=== PATIENT | male | born 1955 | race Caucasian/White ===

== ENCOUNTER 2018-01-06 18:23 | Inpatient (IN) | payer OTHER ==
[2018-01-06 18:58] LABS: ADD MAN DIFF? NO
[2018-01-06 19:00] LABS: BASOPHILS % 0.1 % (0.0-2.0); EOSINOPHILS % 0.1 % (0.0-7.0); LYMPHOCYTES # 1.6 10^3/ul (0.8-2.9); LYMPHOCYTES % 9.3 % (15.0-51.0); MEAN CORPUSCULAR HEMOGLOBIN 30.7 pg (29.0-33.0); MEAN CORPUSCULAR HGB CONC 34.7 g/dl (32.0-37.0); MEAN CORPUSCULAR VOLUME 88.6 fl (82.0-101.0); MEAN PLATELET VOLUME 9.7 fl (7.4-10.4); MONOCYTE # 1.2 10^3/ul (0.3-0.9); MONOCYTES % 6.6 % (0.0-11.0); NEUTROPHIL # 14.5 10^3/ul (1.6-7.5); NEUTROPHILS % 83.2 % (39.0-77.0); PLATELET COUNT 311 10^3/UL (140-415); RED BLOOD COUNT 5.53 10^6/ul (4.70-6.10); RED CELL DISTRIBUTION WIDTH 12.9 % (11.5-14.5)
[2018-01-06 19:00] LABS: WHITE BLOOD COUNT 17.4 10^3/ul (4.8-10.8)
[2018-01-06] MEDS: SOD CHLORIDE 0.9% 1,000 ML IV ×3 (19:13→22:43)
[2018-01-06] MEDS: morphine 4 MG/ML VIAL IV (19:13)
[2018-01-06] MEDS: ONDANSETRON 4 MG INJ IV (19:13)
[2018-01-06 19:20] LABS: ALANINE AMINOTRANSFERASE 637 IU/L (13-69); ALBUMIN 4.9 g/dl (3.3-4.9); ALBUMIN/GLOBULIN RATIO 1.48; ALKALINE PHOSPHATASE 287 IU/L (42-121); ANION GAP 16 (8-16); ASPARTATE AMINO TRANSFERASE 603 IU/L (15-46); BILIRUBIN,INDIRECT 0.9 mg/dl (0-1.1); BILIRUBIN,TOTAL 1.5 mg/dl (0.2-1.3); BLOOD UREA NITROGEN 17 mg/dl (7-20); CALCIUM 9.8 mg/dl (8.4-10.2); CARBON DIOXIDE 28 mmol/L (21-31); CHLORIDE 100 mmol/L (97-110); CREATININE 1.17 mg/dl (0.61-1.24); GLUCOSE 191 mg/dl (70-220); POTASSIUM 3.7 mmol/L (3.5-5.1); SODIUM 140 mmol/L (135-144); TOTAL PROTEIN 8.2 g/dl (6.1-8.1)
[2018-01-06 19:44] LABS: TROPONIN-I < 0.012 ng/ml (0.000-0.120)
[2018-01-06 20:27] LABS: LIPASE 80060 U/L (23-300)
[2018-01-06] MEDS: LACTATED RINGER'S 1,000 ML IV (20:52)
[2018-01-06] MEDS ORDERED: ONDANSETRON 4 MG TAB PO (22:30)
[2018-01-06] MEDS ORDERED: DOCUSATE SODIUM 100 MG CAP PO (22:30)
[2018-01-06] MEDS ORDERED: BISACODYL (EC) 5 MG TAB PO (22:30)
[2018-01-06] MEDS ORDERED: NACL 0.9% 3 ML SYG IV (22:30)
[2018-01-06 23:27] LABS: ETHANOL < 10.0 mg/dl
[2018-01-07] MEDS: HYDROmorphONE 0.5 MG/0.5 ML SYG IV ×4 (00:03→12:27)
[2018-01-07 01:34] LABS: LACTIC ACID 2.8 mmol/L (0.5-2.0)
[2018-01-07 03:13] LABS: ADD MAN DIFF? NO
[2018-01-07 03:15] LABS: WHITE BLOOD COUNT 12.5 10^3/ul (4.8-10.8)
[2018-01-07 03:15] LABS: ABNORMAL IP MESSAGE 1; BASOPHILS % 0.2 % (0.0-2.0); HEMATOCRIT 47.7 % (42.0-52.0); HEMOGLOBIN 16.2 g/dl (14.0-18.0); LYMPHOCYTES # 0.6 10^3/ul (0.8-2.9); LYMPHOCYTES % 4.6 % (15.0-51.0); MEAN CORPUSCULAR HEMOGLOBIN 30.6 pg (29.0-33.0); MEAN CORPUSCULAR VOLUME 90.2 fl (82.0-101.0); MEAN PLATELET VOLUME 9.9 fl (7.4-10.4); MONOCYTE # 0.7 10^3/ul (0.3-0.9); MONOCYTES % 5.8 % (0.0-11.0); NEUTROPHIL # 11.1 10^3/ul (1.6-7.5); NEUTROPHILS % 88.9 % (39.0-77.0); PLATELET COUNT 274 10^3/UL (140-415); POSITIVE DIFF @See below; RED BLOOD COUNT 5.29 10^6/ul (4.70-6.10); RED CELL DISTRIBUTION WIDTH 12.9 % (11.5-14.5)
[2018-01-07 03:38] LABS: ALANINE AMINOTRANSFERASE 746 IU/L (13-69); ALBUMIN 4.4 g/dl (3.3-4.9); ALBUMIN/GLOBULIN RATIO 1.51; ALKALINE PHOSPHATASE 247 IU/L (42-121); ANION GAP 15 (8-16); ASPARTATE AMINO TRANSFERASE 672 IU/L (15-46); BILIRUBIN,TOTAL 1.7 mg/dl (0.2-1.3); BLOOD UREA NITROGEN 22 mg/dl (7-20); CALCIUM 8.9 mg/dl (8.4-10.2); CARBON DIOXIDE 25 mmol/L (21-31); CHLORIDE 104 mmol/L (97-110); CHOLESTEROL 103 mg/dl (100-200); CREATININE 0.91 mg/dl (0.61-1.24); GLUCOSE 201 mg/dl (70-220); HDL CHOLESTEROL 51 mg/dl (30-78); LDL CHOLESTEROL,CALCULATED 43 mg/dl; POTASSIUM 4.4 mmol/L (3.5-5.1); SODIUM 140 mmol/L (135-144); TOTAL PROTEIN 7.3 g/dl (6.1-8.1); TRIGLYCERIDES 43 mg/dl (0-149)
[2018-01-07 03:44] LABS: LACTIC ACID 2.5 mmol/L (0.5-2.0)
[2018-01-07] MEDS: PIPER-TAZO 3.375 GM IV (PMX) 100 ML IVPB ×4 (03:53→18:11)
[2018-01-07] MEDS: SOD CHLORIDE 0.9% 1,000 ML IV ×5 (04:11→23:16)
[2018-01-07] MEDS: LEVOTHYROXINE 75 MCG TAB PO (06:37)
[2018-01-07 07:30] LABS: FREE T4 (FREE THYROXINE) 0.52 ng/dl (0.78-2.44)
[2018-01-07 07:35] LABS: ADD UMIC YES; UR ASCORBIC ACID 40 mg/dL (NEGATIVE); UR BILIRUBIN (Dip) NEGATIVE (NEGATIVE); UR BLOOD (Dip) NEGATIVE (NEGATIVE); UR CLARITY CLEAR (CLEAR); UR COLOR AMBER (YELLOW); UR GLUCOSE (Dip) 1+ mg/dL (NEGATIVE); UR KETONES (Dip) TRACE mg/dL (NEGATIVE); UR LEUKOCYTE ESTERASE (Dip) NEGATIVE Leu/ul (NEGATIVE); UR MUCUS FEW /HPF (NONE SEEN); UR NITRITE (Dip) NEGATIVE (NEGATIVE); UR RBC 5 /HPF (0-5); UR SPECIFIC GRAVITY (Dip) 1.023 (1.003-1.030); UR TOTAL PROTEIN (Dip) 1+ mg/dl (NEGATIVE); UR UROBILINOGEN (Dip) 1+ mg/dL (NEGATIVE); UR WBC 1 /HPF (0-5)
[2018-01-07] MEDS: ASPIRIN (EC) 81 MG TAB PO (08:14)
[2018-01-07] MEDS: AMLODIPINE 10 MG TAB PO (08:15)
[2018-01-07] MEDS: FAMOTIDINE 20 MG TAB PO (08:15)
[2018-01-07 08:31] LABS: LIPASE 13921 U/L (23-300)
[2018-01-07 10:53] LABS: HEPATITIS B SURFACE ANTIGEN NEGATIVE (NEGATIVE)
[2018-01-07 11:10] LABS: HEPATITIS C VIRAL ANTIBODY NEGATIVE (NEGATIVE)
[2018-01-07] MEDS: THIAMINE 100 MG TAB PO (12:30)
[2018-01-07] MEDS: HYDROmorphONE 1 MG/ML SYG IV ×2 (16:53→20:58)
[2018-01-07] MEDS: ATORVASTATIN 80 MG TAB PO (20:54)
[2018-01-08] MEDS: PIPER-TAZO 3.375 GM IV (PMX) 100 ML IVPB ×4 (00:16→18:27)
[2018-01-08] MEDS: HYDROmorphONE 1 MG/ML SYG IV ×7 (00:22→20:24)
[2018-01-08] MEDS: SOD CHLORIDE 0.9% 1,000 ML IV ×5 (02:14→20:01)
[2018-01-08] MEDS: LEVOTHYROXINE 75 MCG TAB PO (06:12)
[2018-01-08 06:50] LABS: HEMATOCRIT 48.9 % (42.0-52.0); HEMOGLOBIN 16.4 g/dl (14.0-18.0); MEAN CORPUSCULAR HEMOGLOBIN 30.4 pg (29.0-33.0); MEAN CORPUSCULAR HGB CONC 33.5 g/dl (32.0-37.0); MEAN CORPUSCULAR VOLUME 90.7 fl (82.0-101.0); MEAN PLATELET VOLUME 10.2 fl (7.4-10.4); PLATELET COUNT 270 10^3/UL (140-415); POSITIVE DIFF @See below; RED BLOOD COUNT 5.39 10^6/ul (4.70-6.10); RED CELL DISTRIBUTION WIDTH 13.9 % (11.5-14.5)
[2018-01-08 06:55] LABS: ADD MAN DIFF? YES
[2018-01-08 07:20] LABS: MAGNESIUM 1.7 mg/dl (1.7-2.5)
[2018-01-08 07:22] LABS: ALANINE AMINOTRANSFERASE 433 IU/L (13-69); ALBUMIN 3.4 g/dl (3.3-4.9); ALBUMIN/GLOBULIN RATIO 1.25; ALKALINE PHOSPHATASE 227 IU/L (42-121); AMYLASE 879 U/L (11-123); ANION GAP 12 (8-16); ASPARTATE AMINO TRANSFERASE 222 IU/L (15-46); BILIRUBIN,INDIRECT 1.6 mg/dl (0-1.1); BILIRUBIN,TOTAL 2.6 mg/dl (0.2-1.3); BLOOD UREA NITROGEN 34 mg/dl (7-20); CALCIUM 6.7 mg/dl (8.4-10.2); CARBON DIOXIDE 20 mmol/L (21-31); CHLORIDE 113 mmol/L (97-110); GLUCOSE 137 mg/dl (70-220); POTASSIUM 4.1 mmol/L (3.5-5.1); SODIUM 141 mmol/L (135-144); TOTAL PROTEIN 6.1 g/dl (6.1-8.1)
[2018-01-08] MEDS: AMLODIPINE 10 MG TAB PO (08:24)
[2018-01-08] MEDS: THIAMINE 100 MG TAB PO (08:24)
[2018-01-08] MEDS: FAMOTIDINE 20 MG TAB PO (08:24)
[2018-01-08] MEDS: ASPIRIN (EC) 81 MG TAB PO (08:24)
[2018-01-08 08:45] LABS: CHOL/HDL RATIO 2.2 RATIO; HDL CHOLESTEROL 37 mg/dl (30-78); LDL CHOLESTEROL,CALCULATED 34 mg/dl; TRIGLYCERIDES 57 mg/dl (0-149)
[2018-01-08 08:45] LABS: CHOLESTEROL 82 mg/dl (100-200)
[2018-01-08 09:02] LABS: LIPASE 4856 U/L (23-300)
[2018-01-08 09:31] LABS: ANISOCYTOSIS 1+ (0-0); BAND NEUTROPHILS #M 3.4 10^3/ul (0.0-0.6); BAND NEUTROPHILS % (M) 20 % (0-4); BURR CELLS 2+ (0-0); GIANT THROMBO% (M) 1 % (0-0); LYMPHOCYTES #M 0.1 10^3/ul (0.8-2.9); LYMPHOCYTES % (M) 1 % (15-51); MONOCYTE #M 0.6 10^3/ul (0.3-0.9); MONOCYTES % (M) 4 % (0-11); OVALOCYTES 1+ (0-0); PLATELET ESTIMATE NORMAL; PLATELET MORPHOLOGY COMMENT @See below; POIKILOCYTOSIS 2+ (0-0); POLYCHROMASIA 1+ (0-0); SEG NEUT #M 13.3 10^3/ul (1.6-7.5); SEGMENTED NEUTROPHILS (M) % 75 % (39-77); SMUDGE%M 4 % (0-0)
[2018-01-08] MEDS: ATORVASTATIN 80 MG TAB PO (20:00)
[2018-01-09] MEDS: SOD CHLORIDE 0.9% 1,000 ML IV ×5 (00:16→19:59)
[2018-01-09] MEDS: PIPER-TAZO 3.375 GM IV (PMX) 100 ML IVPB (00:22)
[2018-01-09 01:38] LABS: AADO2 Arterial 620.2 mmHg (7.0-24.0); Arterial Base Excess -6.1 mmol/L (-3.0-3); Arterial Blood Gas Oxygen Sat 94.4 mmHG (95.0-98.0); Arterial COHb 0.7 % (0.0-3.0); Arterial Fraction of Oxyhgb 93.5 % (93.0-99.0); Arterial HCO3 15.7 mmol/L (22.0-26.0); Arterial MetHb 0.3 % (0.0-1.5); Arterial Total Hemglobin 16.2 g/dl (12.0-18.0); Arterial pCO2 23.7 mmhg (35-45); MODE MASK - NRB; Site Right Brachial
[2018-01-09] MEDS: HYDROmorphONE 1 MG/ML SYG IV ×3 (02:15→22:04)
[2018-01-09] MEDS: FUROSEMIDE 20 MG INJ IV (03:46)
[2018-01-09] MEDS: IOHEXOL 300MG/ML 150 ML BTL (04:06)
[2018-01-09] MEDS: SOD CHLORIDE 0.9% 100 ML (04:06)
[2018-01-09] MEDS: IOHEXOL 350MG/ML 50 ML BTL (04:07)
[2018-01-09] MEDS: MAGNESIUM SULFATE 2 GM/50 ML 50 ML IVPB (06:55)
[2018-01-09] MEDS: MEROPENEM 1 GM/50ML(PMX) 50 ML IVPB ×3 (07:00→22:34)
[2018-01-09] MEDS: LEVOTHYROXINE 100 MCG TAB PO (07:13)
[2018-01-09 07:20] LABS: ADD MAN DIFF? NO
[2018-01-09 07:27] LABS: WHITE BLOOD COUNT 13.6 10^3/ul (4.8-10.8)
[2018-01-09 07:27] LABS: ABNORMAL IP MESSAGE 1; BASOPHILS % 0.1 % (0.0-2.0); HEMATOCRIT 43.6 % (42.0-52.0); HEMOGLOBIN 14.6 g/dl (14.0-18.0); LYMPHOCYTES # 0.8 10^3/ul (0.8-2.9); LYMPHOCYTES % 6.1 % (15.0-51.0); MEAN CORPUSCULAR HEMOGLOBIN 30.6 pg (29.0-33.0); MEAN CORPUSCULAR HGB CONC 33.5 g/dl (32.0-37.0); MEAN CORPUSCULAR VOLUME 91.4 fl (82.0-101.0); MEAN PLATELET VOLUME 10.8 fl (7.4-10.4); MONOCYTE # 1.4 10^3/ul (0.3-0.9); MONOCYTES % 10.3 % (0.0-11.0); NEUTROPHIL # 11.3 10^3/ul (1.6-7.5); NEUTROPHILS % 83.1 % (39.0-77.0); PLATELET COUNT 239 10^3/UL (140-415); POSITIVE DIFF @See below; RED BLOOD COUNT 4.77 10^6/ul (4.70-6.10); RED CELL DISTRIBUTION WIDTH 14.2 % (11.5-14.5)
[2018-01-09 07:48] LABS: ALANINE AMINOTRANSFERASE 233 IU/L (13-69); ALBUMIN 3.2 g/dl (3.3-4.9); ALBUMIN/GLOBULIN RATIO 1.18; ALKALINE PHOSPHATASE 125 IU/L (42-121); AMYLASE 614 U/L (11-123); ANION GAP 12 (8-16); ASPARTATE AMINO TRANSFERASE 144 IU/L (15-46); BILIRUBIN,INDIRECT 1.3 mg/dl (0-1.1); BILIRUBIN,TOTAL 1.5 mg/dl (0.2-1.3); BLOOD UREA NITROGEN 53 mg/dl (7-20); CARBON DIOXIDE 20 mmol/L (21-31); CHLORIDE 114 mmol/L (97-110); CREATININE 1.57 mg/dl (0.61-1.24); GLUCOSE 150 mg/dl (70-220); POTASSIUM 3.7 mmol/L (3.5-5.1); SODIUM 142 mmol/L (135-144); TOTAL PROTEIN 5.9 g/dl (6.1-8.1)
[2018-01-09 07:53] LABS: CALCIUM 5.9 mg/dl (8.4-10.2)
[2018-01-09 08:02] LABS: LIPASE 3291 U/L (23-300)
[2018-01-09 08:54] LABS: BAND NEUTROPHILS #M 5.7 10^3/ul (0.0-0.6); BAND NEUTROPHILS % (M) 42 % (0-4); GIANT THROMBO% (M) 4 % (0-0); LYMPHOCYTES #M 0.5 10^3/ul (0.8-2.9); LYMPHOCYTES % (M) 4 % (15-51); MONOCYTE #M 1.6 10^3/ul (0.3-0.9); MONOCYTES % (M) 12 % (0-11); PLATELET ESTIMATE NORMAL; POIKILOCYTOSIS 3+ (0-0); REACTIVE LYMPHOCYTES #M 0.4 10^3/ul (0.0-0.0); REACTIVE LYMPHOCYTES% (M) 3 % (0-0); SEG NEUT #M 6.1 10^3/ul (1.6-7.5); SEGMENTED NEUTROPHILS (M) % 39 % (39-77); SMUDGE%M 3 % (0-0)
[2018-01-09] MEDS: AMLODIPINE 10 MG TAB PO (09:00)
[2018-01-09] MEDS: ASPIRIN (EC) 81 MG TAB PO (09:00)
[2018-01-09] MEDS: THIAMINE 100 MG TAB PO (09:00)
[2018-01-09] MEDS: FAMOTIDINE 20 MG TAB PO (09:00)
[2018-01-09 12:01] LABS: AADO2 Arterial 632.7 mmHg (7.0-24.0); Arterial Base Excess -6.8 mmol/L (-3.0-3); Arterial Blood Gas Oxygen Sat 92.1 mmHG (95.0-98.0); Arterial COHb 0.6 % (0.0-3.0); Arterial Fraction of Oxyhgb 91.3 % (93.0-99.0); Arterial HCO3 14.5 mmol/L (22.0-26.0); Arterial MetHb 0.3 % (0.0-1.5); Arterial Total Hemglobin 15.3 g/dl (12.0-18.0); MODE HFNC; Site Right Brachial
[2018-01-09] MEDS: CALCIUM GLUCONATE 10% 1 GM in DEXTROSE 5% 100 ML IVPB (12:14)
[2018-01-09] MEDS: ALBUTEROL/IPRATROPIUM (NEB) 3 ML AMP HHN ×2 (13:32→20:47)
[2018-01-09 13:42] LABS: MAGNESIUM 2.3 mg/dl (1.7-2.5)
[2018-01-09 13:42] LABS: PHOSPHORUS 2.7 mg/dl (2.5-4.9)
[2018-01-09 14:17] LABS: ALANINE AMINOTRANSFERASE 203 IU/L (13-69); ALBUMIN 3.1 g/dl (3.3-4.9); ALBUMIN/GLOBULIN RATIO 1.14; ALKALINE PHOSPHATASE 110 IU/L (42-121); ANION GAP 12 (8-16); ASPARTATE AMINO TRANSFERASE 134 IU/L (15-46); BILIRUBIN,INDIRECT 1.2 mg/dl (0-1.1); BILIRUBIN,TOTAL 1.3 mg/dl (0.2-1.3); BLOOD UREA NITROGEN 56 mg/dl (7-20); CARBON DIOXIDE 19 mmol/L (21-31); CHLORIDE 115 mmol/L (97-110); CREATININE 1.55 mg/dl (0.61-1.24); GLUCOSE 159 mg/dl (70-220); POTASSIUM 3.5 mmol/L (3.5-5.1); SODIUM 142 mmol/L (135-144); TOTAL PROTEIN 5.8 g/dl (6.1-8.1)
[2018-01-09 14:30] LABS: CREATINE KINASE 1054 IU/L (23-200)
[2018-01-09 14:42] LABS: CK INDEX 0.4; TROPONIN-I 0.049 ng/ml (0.000-0.120)
[2018-01-09 14:52] LABS: CK-MB 4.59 ng/ml (0.0-2.4)
[2018-01-09 15:01] LABS: IONIZED CALCIUM 0.8 mmol/L (1.1-1.4)
[2018-01-09 15:14] LABS: INR 1.19; PROTIME 15.3 Sec (11.9-14.9); PT RATIO 1.2
[2018-01-09 15:15] LABS: PARTIAL THROMBOPLASTIN TIME 34.8 Sec (25.0-35.0)
[2018-01-09] MEDS: CALCIUM GLUCONATE 10% 2 GM in DEXTROSE 5% 100 ML IVPB (16:27)
[2018-01-09] MEDS: SOD CHLORIDE 0.9% IV (21:40)
[2018-01-09] MEDS: CALCIUM GLUCONATE IV (21:40)
[2018-01-09 22:10] LABS: LACTIC ACID 2.9 mmol/L (0.5-2.0)
[2018-01-09 22:15] LABS: ANION GAP 11 (8-16); BLOOD UREA NITROGEN 58 mg/dl (7-20); CALCIUM 6.5 mg/dl (8.4-10.2); CARBON DIOXIDE 18 mmol/L (21-31); CHLORIDE 115 mmol/L (97-110); CREATININE 1.51 mg/dl (0.61-1.24); GLUCOSE 137 mg/dl (70-220); POTASSIUM 4.2 mmol/L (3.5-5.1); SODIUM 140 mmol/L (135-144)
[2018-01-09 23:37] LABS: AADO2 Arterial 621.3 mmHg (7.0-24.0); Arterial Base Excess -6.4 mmol/L (-3.0-3); Arterial Blood Gas Oxygen Sat 93.8 mmHG (95.0-98.0); Arterial COHb 0.5 % (0.0-3.0); Arterial HCO3 15.6 mmol/L (22.0-26.0); Arterial MetHb 0.3 % (0.0-1.5); Arterial Total Hemglobin 14.2 g/dl (12.0-18.0); Arterial pCO2 23.5 mmhg (35-45); MODE HFNC; Site Right Brachial
[2018-01-10] MEDS: ALBUTEROL/IPRATROPIUM (NEB) 3 ML AMP HHN ×4 (02:00→20:12)
[2018-01-10] MEDS ORDERED: PROPOFOL 0 ML (04:45)
[2018-01-10 04:47] LABS: ADD UMIC YES; UR ASCORBIC ACID NEGATIVE (NEGATIVE); UR BACTERIA FEW /HPF (NONE SEEN); UR BILIRUBIN (Dip) NEGATIVE (NEGATIVE); UR BLOOD (Dip) 3+ mg/dL (NEGATIVE); UR BUDDING YEAST FEW /HPF (NONE SEEN); UR CLARITY SLIGHTLY CLOUDY (CLEAR); UR COLOR AMBER (YELLOW); UR GLUCOSE (Dip) 1+ mg/dL (NEGATIVE); UR KETONES (Dip) NEGATIVE (NEGATIVE); UR LEUKOCYTE ESTERASE (Dip) NEGATIVE Leu/ul (NEGATIVE); UR MUCUS FEW /HPF (NONE SEEN); UR NITRITE (Dip) NEGATIVE (NEGATIVE); UR RBC 114 /HPF (0-5); UR SPECIFIC GRAVITY (Dip) 1.038 (1.003-1.030); UR TOTAL PROTEIN (Dip) 2+ mg/dl (NEGATIVE); UR UROBILINOGEN (Dip) NEGATIVE (NEGATIVE); UR WBC 8 /HPF (0-5)
[2018-01-10] MEDS: CALCIUM GLUCONATE IV ×4 (04:53→21:34)
[2018-01-10] MEDS: SOD CHLORIDE 0.9% IV (04:53)
[2018-01-10] MEDS ORDERED: PHENYLephrine 20MG IN 250 ML 250 ML IV (05:00)
[2018-01-10 05:01] LABS: CREATININE,URINE RANDOM 277.92 mg/dl (20-370)
[2018-01-10] MEDS ORDERED: LORAZEPAM 2 MG INJ (05:01)
[2018-01-10] MEDS: LORAZEPAM 2 MG INJ IV (05:07)
[2018-01-10 05:10] LABS: ADD MAN DIFF? NO
[2018-01-10 05:19] LABS: WHITE BLOOD COUNT 12.5 10^3/ul (4.8-10.8)
[2018-01-10 05:19] LABS: ABNORMAL IP MESSAGE 1; BASOPHILS % 0.3 % (0.0-2.0); HEMATOCRIT 38.9 % (42.0-52.0); HEMOGLOBIN 12.9 g/dl (14.0-18.0); LYMPHOCYTES # 0.8 10^3/ul (0.8-2.9); LYMPHOCYTES % 6.7 % (15.0-51.0); MEAN CORPUSCULAR HEMOGLOBIN 30.1 pg (29.0-33.0); MEAN CORPUSCULAR HGB CONC 33.2 g/dl (32.0-37.0); MEAN CORPUSCULAR VOLUME 90.9 fl (82.0-101.0); MEAN PLATELET VOLUME 10.9 fl (7.4-10.4); MONOCYTE # 1.4 10^3/ul (0.3-0.9); MONOCYTES % 11.4 % (0.0-11.0); NEUTROPHIL # 10.1 10^3/ul (1.6-7.5); NEUTROPHILS % 80.6 % (39.0-77.0); PLATELET COUNT 246 10^3/UL (140-415); POSITIVE DIFF @See below; RED BLOOD COUNT 4.28 10^6/ul (4.70-6.10); RED CELL DISTRIBUTION WIDTH 14.3 % (11.5-14.5)
[2018-01-10 05:27] LABS: CREATININE,URINE RANDOM 281.44 mg/dl (20-370)
[2018-01-10 05:46] LABS: SODIUM,URINE RANDOM < 13 mmol/L (30-90)
[2018-01-10 05:50] LABS: ALANINE AMINOTRANSFERASE 156 IU/L (13-69); ALBUMIN 3.2 g/dl (3.3-4.9); ALBUMIN/GLOBULIN RATIO 1.03; ALKALINE PHOSPHATASE 94 IU/L (42-121); ANION GAP 10 (8-16); ASPARTATE AMINO TRANSFERASE 138 IU/L (15-46); BILIRUBIN,INDIRECT 1.2 mg/dl (0-1.1); BILIRUBIN,TOTAL 1.2 mg/dl (0.2-1.3); BLOOD UREA NITROGEN 65 mg/dl (7-20); CALCIUM 6.6 mg/dl (8.4-10.2); CARBON DIOXIDE 18 mmol/L (21-31); CHLORIDE 118 mmol/L (97-110); CREATININE 1.97 mg/dl (0.61-1.24); GLUCOSE 140 mg/dl (70-220); POTASSIUM 3.4 mmol/L (3.5-5.1); SODIUM 143 mmol/L (135-144); TOTAL PROTEIN 6.3 g/dl (6.1-8.1)
[2018-01-10 05:51] LABS: PHOSPHORUS 3.4 mg/dl (2.5-4.9)
[2018-01-10 05:51] LABS: MAGNESIUM 2.3 mg/dl (1.7-2.5)
[2018-01-10 05:52] LABS: LACTIC ACID 2.5 mmol/L (0.5-2.0)
[2018-01-10] MEDS: MEROPENEM 1 GM/50ML(PMX) 50 ML IVPB ×3 (06:12→23:31)
[2018-01-10] MEDS: LEVOTHYROXINE 100 MCG VIAL IV (06:16)
[2018-01-10 06:24] LABS: LIPASE 1532 U/L (23-300)
[2018-01-10 06:24] LABS: AMYLASE 428 U/L (11-123)
[2018-01-10 08:31] LABS: AADO2 Arterial 609.5 mmHg (7.0-24.0); Arterial Blood Gas Oxygen Sat 95.7 mmHG (95.0-98.0); Arterial COHb 0.4 % (0.0-3.0); Arterial HCO3 14.7 mmol/L (22.0-26.0); Arterial MetHb 0.3 % (0.0-1.5); Arterial Total Hemglobin 14.1 g/dl (12.0-18.0); Arterial pCO2 21.7 mmhg (35-45); Blood Gas IEPAP 15/5; MODE MASK - BIPAP; Site Right Brachial
[2018-01-10] MEDS: CALCIUM GLUCONATE 10% 2 GM in DEXTROSE 5% 100 ML IVPB (09:38)
[2018-01-10 09:44] LABS: LACTIC ACID 1.9 mmol/L (0.5-2.0)
[2018-01-10 10:01] LABS: CREATINE KINASE 1142 IU/L (23-200)
[2018-01-10 10:12] LABS: CK INDEX 0.3; CK-MB 3.05 ng/ml (0.0-2.4); TROPONIN-I 0.114 ng/ml (0.000-0.120)
[2018-01-10] MEDS: NACL IV ×3 (11:09→21:34)
[2018-01-10] MEDS: DEXTROSE IV ×3 (11:09→21:34)
[2018-01-10] MEDS: POTASSIUM CHLORIDE IV ×3 (11:09→21:34)
[2018-01-10] MEDS: LIDOCAINE 1% (MPF) 5 ML VIAL SC (12:00)
[2018-01-10] MEDS: HEPARIN 5,000 UNIT/0.5 ML VIAL SC ×2 (13:46→22:32)
[2018-01-10 14:19] LABS: ANION GAP 11 (8-16); BLOOD UREA NITROGEN 77 mg/dl (7-20); CALCIUM 7.1 mg/dl (8.4-10.2); CARBON DIOXIDE 18 mmol/L (21-31); CHLORIDE 117 mmol/L (97-110); CREATININE 2.81 mg/dl (0.61-1.24); GLUCOSE 188 mg/dl (70-220); POTASSIUM 3.1 mmol/L (3.5-5.1); SODIUM 143 mmol/L (135-144)
[2018-01-10] MEDS ORDERED: POTASSIUM CHLORIDE 50 ML IVPB (15:00)
[2018-01-10] MEDS: KCL 30 MEQ in NS 250 ML IVPB X1 IVPB (16:00)
[2018-01-10 20:27] LABS: POTASSIUM 3.5 mmol/L (3.5-5.1)
[2018-01-10] MEDS: POTASSIUM CHLORIDE 100 ML IVPB (21:34)
[2018-01-11] MEDS: ALBUTEROL/IPRATROPIUM (NEB) 3 ML AMP HHN ×4 (02:08→20:00)
[2018-01-11] MEDS: DEXTROSE IV ×5 (03:30→23:49)
[2018-01-11] MEDS: CALCIUM GLUCONATE IV ×2 (03:30→06:00)
[2018-01-11] MEDS: POTASSIUM CHLORIDE IV ×5 (03:30→23:49)
[2018-01-11] MEDS: NACL IV ×5 (03:30→23:49)
[2018-01-11] MEDS: HYDROmorphONE 1 MG/ML SYG IV ×2 (03:49→05:59)
[2018-01-11] MEDS: LEVOTHYROXINE 100 MCG VIAL IV (05:44)
[2018-01-11] MEDS: HEPARIN 5,000 UNIT/0.5 ML VIAL SC ×2 (05:45→14:00)
[2018-01-11 05:51] LABS: ADD MAN DIFF? NO
[2018-01-11 05:55] LABS: WHITE BLOOD COUNT 12.2 10^3/ul (4.8-10.8)
[2018-01-11 05:55] LABS: BASOPHILS % 0.2 % (0.0-2.0); EOSINOPHILS % 0.2 % (0.0-7.0); HEMATOCRIT 35.4 % (42.0-52.0); HEMOGLOBIN 11.6 g/dl (14.0-18.0); LYMPHOCYTES # 0.8 10^3/ul (0.8-2.9); LYMPHOCYTES % 6.6 % (15.0-51.0); MEAN CORPUSCULAR HEMOGLOBIN 30.1 pg (29.0-33.0); MEAN CORPUSCULAR HGB CONC 32.8 g/dl (32.0-37.0); MEAN CORPUSCULAR VOLUME 91.7 fl (82.0-101.0); MEAN PLATELET VOLUME 10.6 fl (7.4-10.4); MONOCYTE # 1.4 10^3/ul (0.3-0.9); MONOCYTES % 11.5 % (0.0-11.0); NEUTROPHIL # 9.6 10^3/ul (1.6-7.5); NEUTROPHILS % 78.7 % (39.0-77.0); PLATELET COUNT 240 10^3/UL (140-415); POSITIVE DIFF @See below; RED BLOOD COUNT 3.86 10^6/ul (4.70-6.10); RED CELL DISTRIBUTION WIDTH 14.7 % (11.5-14.5)
[2018-01-11 06:18] LABS: ALANINE AMINOTRANSFERASE 123 IU/L (13-69); ALKALINE PHOSPHATASE 75 IU/L (42-121); ANION GAP 13 (8-16); ASPARTATE AMINO TRANSFERASE 116 IU/L (15-46); BILIRUBIN,INDIRECT 0.8 mg/dl (0-1.1); BILIRUBIN,TOTAL 0.8 mg/dl (0.2-1.3); BLOOD UREA NITROGEN 88 mg/dl (7-20); CALCIUM 7.5 mg/dl (8.4-10.2); CARBON DIOXIDE 18 mmol/L (21-31); CHLORIDE 119 mmol/L (97-110); CREATININE 3.25 mg/dl (0.61-1.24); GLUCOSE 175 mg/dl (70-220); MAGNESIUM 2.8 mg/dl (1.7-2.5); PHOSPHORUS 4.2 mg/dl (2.5-4.9); POTASSIUM 3.4 mmol/L (3.5-5.1); SODIUM 147 mmol/L (135-144)
[2018-01-11] MEDS: MEROPENEM 1 GM/50ML(PMX) 50 ML IVPB ×2 (08:17→21:10)
[2018-01-11 09:30] LABS: AADO2 Arterial 597.2 mmHg (7.0-24.0); Arterial Base Excess -12.3 mmol/L (-3.0-3); Arterial Blood Gas Oxygen Sat 96.5 mmHG (95.0-98.0); Arterial COHb 0.8 % (0.0-3.0); Arterial Fraction of Oxyhgb 95.1 % (93.0-99.0); Arterial HCO3 11.5 mmol/L (22.0-26.0); Arterial MetHb 0.6 % (0.0-1.5); Arterial Total Hemglobin 11.9 g/dl (12.0-18.0); MODE HFNC; Site Right Brachial
[2018-01-11] MEDS: LIDOCAINE 1% (MPF) 5 ML VIAL SC (14:20)
[2018-01-11 14:42] LABS: LIPASE 1271 U/L (23-300)
[2018-01-11 14:42] LABS: AMYLASE 287 U/L (11-123)
[2018-01-11 18:41] LABS: WHITE BLOOD COUNT 15.6 10^3/ul (4.8-10.8)
[2018-01-11 18:42] LABS: ABNORMAL IP MESSAGE 1; HEMATOCRIT 31.8 % (42.0-52.0); HEMOGLOBIN 10.7 g/dl (14.0-18.0); MEAN CORPUSCULAR HEMOGLOBIN 30.5 pg (29.0-33.0); MEAN CORPUSCULAR HGB CONC 33.6 g/dl (32.0-37.0); MEAN CORPUSCULAR VOLUME 90.6 fl (82.0-101.0); MEAN PLATELET VOLUME 10.6 fl (7.4-10.4); PLATELET COUNT 250 10^3/UL (140-415); POSITIVE DIFF @See below; RED BLOOD COUNT 3.51 10^6/ul (4.70-6.10); RED CELL DISTRIBUTION WIDTH 14.7 % (11.5-14.5)
[2018-01-11 19:03] LABS: ADD MAN DIFF? YES
[2018-01-11 19:21] LABS: ACANTHOCYTES 1+ (0-0); ANISOCYTOSIS 1+ (0-0); BAND NEUTROPHILS #M 1.5 10^3/ul (0.0-0.6); BAND NEUTROPHILS % (M) 10 % (0-4); ECHINOCYTOSIS 2+ (0-0); GIANT THROMBO% (M) 4 % (0-0); LYMPHOCYTES #M 0.7 10^3/ul (0.8-2.9); LYMPHOCYTES % (M) 5 % (15-51); METAMYELOCYTES #M 0.1 10^3/ul (0.0-0.0); METAMYELOCYTES %M 1 % (0-0); MONOCYTE #M 0.7 10^3/ul (0.3-0.9); MONOCYTES % (M) 5 % (0-11); MYELOCYTES #M 0.4 10^3/ul (0.0-0.0); MYELOCYTES % (M) 3 % (0-0); OVALOCYTES 1+ (0-0); PLATELET MORPHOLOGY COMMENT @See below; POIKILOCYTOSIS 3+ (0-0); POLYCHROMASIA 1+ (0-0); SCHISTOCYTES 1+ (0-0); SEG NEUT #M 12.1 10^3/ul (1.6-7.5); SEGMENTED NEUTROPHILS (M) % 76 % (39-77); SMUDGE%M 2 % (0-0); SPHEROCYTES 1+ (0-0)
[2018-01-11] MEDS: PANTOPRAZOLE IV 80 MG in SOD CHLORIDE 0.9% 100 ML IV (21:10)
[2018-01-11] MEDS: ONDANSETRON INJ 8 MG in DEXTROSE 5% 50 ML IV (21:58)
[2018-01-12] MEDS: LORAZEPAM 2 MG INJ IV ×2 (00:44→09:49)
[2018-01-12] MEDS: ALBUTEROL/IPRATROPIUM (NEB) 3 ML AMP HHN ×4 (01:19→19:04)
[2018-01-12] MEDS: ONDANSETRON INJ 8 MG in DEXTROSE 5% 50 ML IV ×5 (02:15→23:35)
[2018-01-12] MEDS: POTASSIUM CHLORIDE IV ×3 (02:19→09:47)
[2018-01-12] MEDS: NACL IV ×3 (02:19→09:47)
[2018-01-12] MEDS: DEXTROSE IV ×3 (02:19→09:47)
[2018-01-12] MEDS: PANTOPRAZOLE IV 80 MG in SOD CHLORIDE 0.9% 100 ML IV ×3 (03:28→17:20)
[2018-01-12] MEDS: LEVOTHYROXINE 100 MCG VIAL IV (05:23)
[2018-01-12 05:45] LABS: ADD MAN DIFF? NO
[2018-01-12 05:48] LABS: ABNORMAL IP MESSAGE 1; BASOPHIL # 0.1 10^3/ul (0.0-0.1); BASOPHILS % 0.6 % (0.0-2.0); EOSINOPHILS # 0.1 10^3/ul (0.0-0.5); EOSINOPHILS % 0.5 % (0.0-7.0); HEMATOCRIT 31.2 % (42.0-52.0); HEMOGLOBIN 10.4 g/dl (14.0-18.0); LYMPHOCYTES # 0.6 10^3/ul (0.8-2.9); LYMPHOCYTES % 3.5 % (15.0-51.0); MEAN CORPUSCULAR HEMOGLOBIN 30.6 pg (29.0-33.0); MEAN CORPUSCULAR HGB CONC 33.3 g/dl (32.0-37.0); MEAN CORPUSCULAR VOLUME 91.8 fl (82.0-101.0); MEAN PLATELET VOLUME 10.8 fl (7.4-10.4); MONOCYTE # 1.7 10^3/ul (0.3-0.9); MONOCYTES % 9.8 % (0.0-11.0); NEUTROPHIL # 13.9 10^3/ul (1.6-7.5); NEUTROPHILS % 80.5 % (39.0-77.0); NUCLEATED RED BLOOD CELLS% 0.2 /100WBC (0.0-0.0); PLATELET COUNT 225 10^3/UL (140-415); POSITIVE DIFF @See below; RED CELL DISTRIBUTION WIDTH 14.9 % (11.5-14.5)
[2018-01-12 05:48] LABS: WHITE BLOOD COUNT 17.3 10^3/ul (4.8-10.8)
[2018-01-12 06:21] LABS: ALANINE AMINOTRANSFERASE 124 IU/L (13-69); ALBUMIN 2.8 g/dl (3.3-4.9); ALKALINE PHOSPHATASE 80 IU/L (42-121); ANION GAP 14 (8-16); ASPARTATE AMINO TRANSFERASE 146 IU/L (15-46); BILIRUBIN,INDIRECT 0.5 mg/dl (0-1.1); BILIRUBIN,TOTAL 0.5 mg/dl (0.2-1.3); BLOOD UREA NITROGEN 103 mg/dl (7-20); CALCIUM 7.6 mg/dl (8.4-10.2); CARBON DIOXIDE 14 mmol/L (21-31); CHLORIDE 120 mmol/L (97-110); GLUCOSE 157 mg/dl (70-220); MAGNESIUM 2.8 mg/dl (1.7-2.5); POTASSIUM 3.8 mmol/L (3.5-5.1); SODIUM 144 mmol/L (135-144); TOTAL PROTEIN 5.9 g/dl (6.1-8.1)
[2018-01-12 08:52] LABS: AADO2 Arterial 480.6 mmHg (7.0-24.0); Allen Test ACCEPTAB; Arterial Base Excess -12.5 mmol/L (-3.0-3); Arterial Blood Gas Oxygen Sat 91.4 mmHG (95.0-98.0); Arterial COHb 0.4 % (0.0-3.0); Arterial Fraction of Oxyhgb 90.5 % (93.0-99.0); Arterial HCO3 11.9 mmol/L (22.0-26.0); Arterial MetHb 0.6 % (0.0-1.5); Arterial Total Hemglobin 10.2 g/dl (12.0-18.0); Arterial pCO2 23.4 mmhg (35-45); MODE HFNC; Site Right Radial
[2018-01-12] MEDS: MEROPENEM 1 GM/50ML(PMX) 50 ML IVPB (09:00)
[2018-01-12 09:09] LABS: ANISOCYTOSIS 1+ (0-0); BAND NEUTROPHILS % (M) 41 % (0-4); BURR CELLS 2+ (0-0); LYMPHOCYTES #M 0.3 10^3/ul (0.8-2.9); LYMPHOCYTES % (M) 2 % (15-51); METAMYELOCYTES #M 0.1 10^3/ul (0.0-0.0); METAMYELOCYTES %M 1 % (0-0); MONOCYTE #M 1.7 10^3/ul (0.3-0.9); MONOCYTES % (M) 10 % (0-11); PLATELET ESTIMATE NORMAL; POIKILOCYTOSIS 2+ (0-0); POLYCHROMASIA 1+ (0-0); SEG NEUT #M 9.2 10^3/ul (1.6-7.5); SEGMENTED NEUTROPHILS (M) % 46 % (39-77); SMUDGE%M 1 % (0-0)
[2018-01-12] MEDS: MULTIVITAMINS IV (09:47)
[2018-01-12] MEDS ORDERED: DEXTROSE IV (10:00)
[2018-01-12] MEDS ORDERED: NACL IV (10:00)
[2018-01-12] MEDS ORDERED: POTASSIUM CHLORIDE IV (10:00)
[2018-01-12 12:18] LABS: LIPASE 815 U/L (23-300)
[2018-01-12 16:05] LABS: INR 1.31; PROTIME 16.5 Sec (11.9-14.9); PT RATIO 1.3
[2018-01-12] MEDS: D5-0.2 NACL + KCL 20 MEQ 1,000 ML IV ×2 (17:21→23:31)
[2018-01-12] MEDS: MEROPENEM 500MG/50 ML (PMX) 50 ML IVPB (20:42)
[2018-01-13] MEDS: ALBUTEROL/IPRATROPIUM (NEB) 3 ML AMP HHN ×4 (01:29→19:40)
[2018-01-13] MEDS: PANTOPRAZOLE IV 80 MG in SOD CHLORIDE 0.9% 100 ML IV ×2 (02:41→14:12)
[2018-01-13] MEDS: LORAZEPAM 2 MG INJ IV (02:56)
[2018-01-13 05:03] LABS: ADD MAN DIFF? NO
[2018-01-13] MEDS: D5-0.2 NACL + KCL 20 MEQ 1,000 ML IV ×2 (05:06→11:28)
[2018-01-13 05:09] LABS: ABNORMAL IP MESSAGE 1; BASOPHIL # 0.1 10^3/ul (0.0-0.1); BASOPHILS % 0.4 % (0.0-2.0); EOSINOPHILS # 0.2 10^3/ul (0.0-0.5); EOSINOPHILS % 0.8 % (0.0-7.0); HEMATOCRIT 29.1 % (42.0-52.0); HEMOGLOBIN 9.6 g/dl (14.0-18.0); LYMPHOCYTES # 0.5 10^3/ul (0.8-2.9); LYMPHOCYTES % 2.3 % (15.0-51.0); MEAN CORPUSCULAR HEMOGLOBIN 30.6 pg (29.0-33.0); MEAN CORPUSCULAR VOLUME 92.7 fl (82.0-101.0); MONOCYTE # 1.4 10^3/ul (0.3-0.9); MONOCYTES % 7.1 % (0.0-11.0); NEUTROPHIL # 16.2 10^3/ul (1.6-7.5); NEUTROPHILS % 84.1 % (39.0-77.0); NUCLEATED RED BLOOD CELLS% 0.2 /100WBC (0.0-0.0); PLATELET COUNT 216 10^3/UL (140-415); POSITIVE DIFF @See below; RED BLOOD COUNT 3.14 10^6/ul (4.70-6.10); RED CELL DISTRIBUTION WIDTH 15.1 % (11.5-14.5)
[2018-01-13 05:09] LABS: WHITE BLOOD COUNT 19.3 10^3/ul (4.8-10.8)
[2018-01-13] MEDS: LEVOTHYROXINE 100 MCG VIAL IV (05:33)
[2018-01-13] MEDS: ONDANSETRON INJ 8 MG in DEXTROSE 5% 50 ML IV ×3 (05:34→17:14)
[2018-01-13 05:41] LABS: LIPASE 1415 U/L (23-300)
[2018-01-13 05:44] LABS: ALANINE AMINOTRANSFERASE 113 IU/L (13-69); ALBUMIN 2.6 g/dl (3.3-4.9); ALBUMIN/GLOBULIN RATIO 0.89; ALKALINE PHOSPHATASE 82 IU/L (42-121); ANION GAP 16 (8-16); ASPARTATE AMINO TRANSFERASE 132 IU/L (15-46); BILIRUBIN,INDIRECT 0.5 mg/dl (0-1.1); BILIRUBIN,TOTAL 0.8 mg/dl (0.2-1.3); BLOOD UREA NITROGEN 108 mg/dl (7-20); CALCIUM 7.7 mg/dl (8.4-10.2); CARBON DIOXIDE 14 mmol/L (21-31); CHLORIDE 116 mmol/L (97-110); GLUCOSE 161 mg/dl (70-220); MAGNESIUM 2.8 mg/dl (1.7-2.5); PHOSPHORUS 5.7 mg/dl (2.5-4.9); POTASSIUM 3.9 mmol/L (3.5-5.1); SODIUM 142 mmol/L (135-144); TOTAL PROTEIN 5.5 g/dl (6.1-8.1)
[2018-01-13 07:43] LABS: ANISOCYTOSIS 1+ (0-0); BAND NEUTROPHILS #M 2.8 10^3/ul (0.0-0.6); BAND NEUTROPHILS % (M) 15 % (0-4); BURR CELLS 3+ (0-0); EOSINOPHILS % (M) 1 % (0-7); ERYTHROBLAST% (NRBC) (M) 1 % (0-0); GIANT THROMBO% (M) 1 % (0-0); LYMPHOCYTES #M 0.9 10^3/ul (0.8-2.9); LYMPHOCYTES % (M) 5 % (15-51); MONOCYTE #M 2.1 10^3/ul (0.3-0.9); MONOCYTES % (M) 11 % (0-11); MYELOCYTES #M 0.1 10^3/ul (0.0-0.0); MYELOCYTES % (M) 1 % (0-0); PLATELET ESTIMATE NORMAL; POIKILOCYTOSIS 3+ (0-0); POLYCHROMASIA 1+ (0-0); SEG NEUT #M 13.5 10^3/ul (1.6-7.5); SEGMENTED NEUTROPHILS (M) % 67 % (39-77); SMUDGE%M 7 % (0-0)
[2018-01-13] MEDS: MEROPENEM 500MG/50 ML (PMX) 50 ML IVPB ×2 (08:22→20:50)
[2018-01-13 08:36] LABS: AADO2 Arterial 485.4 mmHg (7.0-24.0); Allen Test ACCEPTAB; Arterial Base Excess -13.6 mmol/L (-3.0-3); Arterial Blood Gas Oxygen Sat 90.2 mmHG (95.0-98.0); Arterial COHb 0.4 % (0.0-3.0); Arterial Fraction of Oxyhgb 89.4 % (93.0-99.0); Arterial HCO3 10.8 mmol/L (22.0-26.0); Arterial MetHb 0.5 % (0.0-1.5); Arterial Total Hemglobin 11.1 g/dl (12.0-18.0); Arterial pCO2 21.9 mmhg (35-45); MODE HFNC; Site LB
[2018-01-13] MEDS: ACCU-CHEK XX ×4 (09:37→20:57)
[2018-01-13] MEDS: DEXTROSE 5%-0.225% NACL 1,000 ML IV (15:27)
[2018-01-13] MEDS: TPN 1,000 ML IV (16:21)
[2018-01-13] MEDS ORDERED: IOHEXOL 14.3 MG(I)/ML (ADULT) BTL PO (18:00)
[2018-01-13] MEDS ORDERED: GLUCOSE GEL 15 GRAM TUBE PO ×2 (21:30)
[2018-01-13] MEDS ORDERED: DEXTROSE 50% 50 ML SYRINGE IV (21:30)
[2018-01-13] MEDS ORDERED: GLUCAGON 1 MG INJ IM (21:30)
[2018-01-13] MEDS: SOD CHLORIDE 0.45% 1,000 ML IV (21:54)
[2018-01-13] MEDS: HYDROmorphONE 1 MG/ML SYG IV (23:18)
[2018-01-13] MEDS: INSULIN ASPART [NOVOLOG] 3 ML PEN SC (23:32)
[2018-01-14] MEDS: ONDANSETRON INJ 8 MG in DEXTROSE 5% 50 ML IV ×4 (00:19→17:06)
[2018-01-14] MEDS: PANTOPRAZOLE IV 80 MG in SOD CHLORIDE 0.9% 100 ML IV ×3 (00:20→15:30)
[2018-01-14] MEDS: ACCU-CHEK XX ×5 (00:26→17:00)
[2018-01-14] MEDS: ALBUTEROL/IPRATROPIUM (NEB) 3 ML AMP HHN ×4 (03:43→20:08)
[2018-01-14 05:38] LABS: ADD MAN DIFF? NO
[2018-01-14 06:02] LABS: ALANINE AMINOTRANSFERASE 112 IU/L (13-69); ALBUMIN 2.5 g/dl (3.3-4.9); ALBUMIN/GLOBULIN RATIO 0.86; ALKALINE PHOSPHATASE 93 IU/L (42-121); ANION GAP 13 (8-16); ASPARTATE AMINO TRANSFERASE 172 IU/L (15-46); BILIRUBIN,INDIRECT 0.6 mg/dl (0-1.1); BILIRUBIN,TOTAL 1.2 mg/dl (0.2-1.3); BLOOD UREA NITROGEN 110 mg/dl (7-20); CALCIUM 7.8 mg/dl (8.4-10.2); CARBON DIOXIDE 16 mmol/L (21-31); CHLORIDE 118 mmol/L (97-110); CREATININE 3.44 mg/dl (0.61-1.24); GLUCOSE 178 mg/dl (70-220); MAGNESIUM 2.8 mg/dl (1.7-2.5); PHOSPHORUS 5.7 mg/dl (2.5-4.9); POTASSIUM 3.9 mmol/L (3.5-5.1); SODIUM 143 mmol/L (135-144); TOTAL PROTEIN 5.4 g/dl (6.1-8.1); TRIGLYCERIDES 134 mg/dl (0-149)
[2018-01-14 06:08] LABS: PREALBUMIN 7.6 mg/dl (17.6-36.0)
[2018-01-14 06:10] LABS: ABNORMAL IP MESSAGE 1; BASOPHIL # 0.1 10^3/ul (0.0-0.1); BASOPHILS % 0.4 % (0.0-2.0); EOSINOPHILS # 0.2 10^3/ul (0.0-0.5); EOSINOPHILS % 0.9 % (0.0-7.0); HEMATOCRIT 29.2 % (42.0-52.0); HEMOGLOBIN 9.7 g/dl (14.0-18.0); LYMPHOCYTES # 0.5 10^3/ul (0.8-2.9); LYMPHOCYTES % 2.4 % (15.0-51.0); MEAN CORPUSCULAR HEMOGLOBIN 30.5 pg (29.0-33.0); MEAN CORPUSCULAR HGB CONC 33.2 g/dl (32.0-37.0); MEAN CORPUSCULAR VOLUME 91.8 fl (82.0-101.0); MONOCYTE # 1.5 10^3/ul (0.3-0.9); MONOCYTES % 6.5 % (0.0-11.0); NEUTROPHIL # 18.7 10^3/ul (1.6-7.5); NEUTROPHILS % 84.1 % (39.0-77.0); PLATELET COUNT 213 10^3/UL (140-415); POSITIVE DIFF @See below; RED BLOOD COUNT 3.18 10^6/ul (4.70-6.10); RED CELL DISTRIBUTION WIDTH 15.1 % (11.5-14.5)
[2018-01-14 06:10] LABS: WHITE BLOOD COUNT 22.2 10^3/ul (4.8-10.8)
[2018-01-14] MEDS: HYDROmorphONE 1 MG/ML SYG IV ×2 (06:13→20:16)
[2018-01-14] MEDS: LEVOTHYROXINE 100 MCG VIAL IV (06:13)
[2018-01-14] MEDS: INSULIN ASPART [NOVOLOG] 3 ML PEN SC ×3 (06:17→17:10)
[2018-01-14] MEDS: MEROPENEM 500MG/50 ML (PMX) 50 ML IVPB ×2 (08:44→20:15)
[2018-01-14] MEDS: SOD CHLORIDE 0.45% 1,000 ML IV ×2 (08:48→20:16)
[2018-01-14 08:53] LABS: Allen Test ACCEPTAB; Arterial Base Excess -11.6 mmol/L (-3.0-3); Arterial Blood Gas Oxygen Sat 91.6 mmHG (95.0-98.0); Arterial COHb 0.3 % (0.0-3.0); Arterial Fraction of Oxyhgb 91.1 % (93.0-99.0); Arterial HCO3 14.2 mmol/L (22.0-26.0); Arterial MetHb 0.2 % (0.0-1.5); Arterial Total Hemglobin 10.4 g/dl (12.0-18.0); Arterial pCO2 31.4 mmhg (35-45); MODE HFNC; Site Right Brachial
[2018-01-14 10:44] LABS: LACTIC ACID 0.9 mmol/L (0.5-2.0)
[2018-01-14] MEDS: TPN 1,000 ML IV (11:52)
[2018-01-14] MEDS: NA BICARBONATE 650 MG TAB PO ×2 (12:38→20:16)
[2018-01-14] MEDS: LORAZEPAM 2 MG INJ IV (16:30)
[2018-01-15] MEDS: ONDANSETRON INJ 8 MG in DEXTROSE 5% 50 ML IV ×4 (00:16→17:15)
[2018-01-15] MEDS: PANTOPRAZOLE IV 80 MG in SOD CHLORIDE 0.9% 100 ML IV ×3 (00:16→21:21)
[2018-01-15] MEDS: INSULIN ASPART [NOVOLOG] 3 ML PEN SC ×4 (00:19→17:26)
[2018-01-15] MEDS: ALBUTEROL/IPRATROPIUM (NEB) 3 ML AMP HHN ×4 (01:34→19:48)
[2018-01-15 05:12] LABS: ADD MAN DIFF? NO
[2018-01-15 05:13] LABS: ABNORMAL IP MESSAGE 1; BASOPHIL # 0.1 10^3/ul (0.0-0.1); BASOPHILS % 0.4 % (0.0-2.0); EOSINOPHILS # 0.1 10^3/ul (0.0-0.5); EOSINOPHILS % 0.7 % (0.0-7.0); HEMATOCRIT 28.9 % (42.0-52.0); HEMOGLOBIN 9.5 g/dl (14.0-18.0); LYMPHOCYTES # 0.5 10^3/ul (0.8-2.9); LYMPHOCYTES % 2.3 % (15.0-51.0); MEAN CORPUSCULAR HEMOGLOBIN 30.4 pg (29.0-33.0); MEAN CORPUSCULAR HGB CONC 32.9 g/dl (32.0-37.0); MEAN CORPUSCULAR VOLUME 92.3 fl (82.0-101.0); MEAN PLATELET VOLUME 11.5 fl (7.4-10.4); MONOCYTE # 1.3 10^3/ul (0.3-0.9); MONOCYTES % 6.1 % (0.0-11.0); NEUTROPHIL # 17.9 10^3/ul (1.6-7.5); NEUTROPHILS % 84.9 % (39.0-77.0); PLATELET COUNT 206 10^3/UL (140-415); POSITIVE DIFF @See below; RED BLOOD COUNT 3.13 10^6/ul (4.70-6.10); RED CELL DISTRIBUTION WIDTH 15.4 % (11.5-14.5)
[2018-01-15 05:13] LABS: WHITE BLOOD COUNT 21.1 10^3/ul (4.8-10.8)
[2018-01-15 05:41] LABS: ALANINE AMINOTRANSFERASE 93 IU/L (13-69); ALBUMIN/GLOBULIN RATIO 0.83; ALKALINE PHOSPHATASE 84 IU/L (42-121); ANION GAP 13 (8-16); ASPARTATE AMINO TRANSFERASE 157 IU/L (15-46); BILIRUBIN,INDIRECT 0.6 mg/dl (0-1.1); BILIRUBIN,TOTAL 0.9 mg/dl (0.2-1.3); BLOOD UREA NITROGEN 109 mg/dl (7-20); CALCIUM 7.5 mg/dl (8.4-10.2); CARBON DIOXIDE 19 mmol/L (21-31); CHLORIDE 117 mmol/L (97-110); CREATININE 2.74 mg/dl (0.61-1.24); GLUCOSE 188 mg/dl (70-220); MAGNESIUM 2.6 mg/dl (1.7-2.5); PHOSPHORUS 5.8 mg/dl (2.5-4.9); POTASSIUM 4.2 mmol/L (3.5-5.1); SODIUM 145 mmol/L (135-144); TOTAL PROTEIN 4.4 g/dl (6.1-8.1)
[2018-01-15 06:13] LABS: LIPASE 2627 U/L (23-300)
[2018-01-15] MEDS: LEVOTHYROXINE 100 MCG VIAL IV (06:14)
[2018-01-15] MEDS: TPN 1,000 ML IV ×2 (07:00→15:04)
[2018-01-15] MEDS: MEROPENEM 500MG/50 ML (PMX) 50 ML IVPB ×2 (08:07→21:03)
[2018-01-15 08:47] LABS: ADD UMIC YES; UR AMORPHOUS CRYSTAL FEW /HPF (NONE SEEN); UR ASCORBIC ACID NEGATIVE (NEGATIVE); UR BACTERIA FEW /HPF (NONE SEEN); UR BILIRUBIN (Dip) NEGATIVE (NEGATIVE); UR BLOOD (Dip) 2+ mg/dL (NEGATIVE); UR CLARITY CLOUDY (CLEAR); UR COLOR YELLOW (YELLOW); UR GLUCOSE (Dip) NEGATIVE (NEGATIVE); UR KETONES (Dip) NEGATIVE (NEGATIVE); UR LEUKOCYTE ESTERASE (Dip) NEGATIVE Leu/ul (NEGATIVE); UR NITRITE (Dip) NEGATIVE (NEGATIVE); UR RBC 13 /HPF (0-5); UR SPECIFIC GRAVITY (Dip) 1.015 (1.003-1.030); UR SQUAMOUS EPITHELIAL CELL FEW /HPF (FEW); UR TOTAL PROTEIN (Dip) 1+ mg/dl (NEGATIVE); UR UROBILINOGEN (Dip) NEGATIVE (NEGATIVE); UR WBC 12 /HPF (0-5)
[2018-01-15] MEDS: NA BICARBONATE 650 MG TAB PO ×3 (09:00→21:03)
[2018-01-15 09:19] LABS: ANISOCYTOSIS 1+ (0-0); BAND NEUTROPHILS #M 2.1 10^3/ul (0.0-0.6); BAND NEUTROPHILS % (M) 10 % (0-4); ERYTHROBLAST% (NRBC) (M) 1 % (0-0); LYMPHOCYTES #M 0.2 10^3/ul (0.8-2.9); LYMPHOCYTES % (M) 1 % (15-51); METAMYELOCYTES #M 0.2 10^3/ul (0.0-0.0); METAMYELOCYTES %M 1 % (0-0); MONOCYTE #M 0.6 10^3/ul (0.3-0.9); MONOCYTES % (M) 3 % (0-11); PLATELET ESTIMATE NORMAL; POIKILOCYTOSIS 3+ (0-0); POLYCHROMASIA 1+ (0-0); PROMYELOCYTES #M 0.4 10^3/ul (0-0); PROMYELOCYTES % (M) 2 % (0-0); SEGMENTED NEUTROPHILS (M) % 83 % (39-77)
[2018-01-15] MEDS: SOD CHLORIDE 0.45% 1,000 ML IV (09:51)
[2018-01-15] MEDS: HYDROmorphONE 1 MG/ML SYG IV ×4 (10:22→21:46)
[2018-01-15] MEDS: FUROSEMIDE 40 MG INJ IV (12:55)
[2018-01-15] MEDS ORDERED: FUROSEMIDE 40 MG INJ IV (13:00)
[2018-01-16] MEDS: ONDANSETRON INJ 8 MG in DEXTROSE 5% 50 ML IV ×5 (00:12→23:55)
[2018-01-16] MEDS: INSULIN ASPART [NOVOLOG] 3 ML PEN SC ×5 (00:16→20:39)
[2018-01-16] MEDS: ALBUTEROL/IPRATROPIUM (NEB) 3 ML AMP HHN ×4 (01:26→19:48)
[2018-01-16 05:21] LABS: AADO2 Arterial 616.5 mmHg (7.0-24.0); Allen Test ACCEPTAB; Arterial Base Excess -4.1 mmol/L (-3.0-3); Arterial Blood Gas Oxygen Sat 90.4 mmHG (95.0-98.0); Arterial COHb 0.3 % (0.0-3.0); Arterial Fraction of Oxyhgb 89.7 % (93.0-99.0); Arterial HCO3 20.4 mmol/L (22.0-26.0); Arterial MetHb 0.5 % (0.0-1.5); Arterial Total Hemglobin 7.8 g/dl (12.0-18.0); Arterial pCO2 34.7 mmhg (35-45); MODE HFNC; Site Right Radial
[2018-01-16] MEDS: LEVOTHYROXINE 100 MCG VIAL IV (05:36)
[2018-01-16 05:42] LABS: ADD MAN DIFF? NO
[2018-01-16] MEDS: HYDROmorphONE 1 MG/ML SYG IV ×6 (05:42→20:38)
[2018-01-16 05:51] LABS: ABNORMAL IP MESSAGE 1; BASOPHILS % 0.2 % (0.0-2.0); EOSINOPHILS # 0.2 10^3/ul (0.0-0.5); HEMATOCRIT 27.6 % (42.0-52.0); LYMPHOCYTES # 0.5 10^3/ul (0.8-2.9); LYMPHOCYTES % 2.5 % (15.0-51.0); MEAN CORPUSCULAR HEMOGLOBIN 30.2 pg (29.0-33.0); MEAN CORPUSCULAR HGB CONC 32.6 g/dl (32.0-37.0); MEAN CORPUSCULAR VOLUME 92.6 fl (82.0-101.0); MONOCYTE # 1.1 10^3/ul (0.3-0.9); MONOCYTES % 5.9 % (0.0-11.0); NEUTROPHIL # 16.4 10^3/ul (1.6-7.5); NEUTROPHILS % 84.7 % (39.0-77.0); PLATELET COUNT 202 10^3/UL (140-415); POSITIVE DIFF @See below; RED BLOOD COUNT 2.98 10^6/ul (4.70-6.10); RED CELL DISTRIBUTION WIDTH 15.9 % (11.5-14.5)
[2018-01-16 05:51] LABS: WHITE BLOOD COUNT 19.3 10^3/ul (4.8-10.8)
[2018-01-16] MEDS: PANTOPRAZOLE IV 80 MG in SOD CHLORIDE 0.9% 100 ML IV ×2 (06:28→16:31)
[2018-01-16 07:31] LABS: ALANINE AMINOTRANSFERASE 84 IU/L (13-69); ALBUMIN 2.3 g/dl (3.3-4.9); ALBUMIN/GLOBULIN RATIO 0.82; ALKALINE PHOSPHATASE 84 IU/L (42-121); ANION GAP 12 (8-16); ASPARTATE AMINO TRANSFERASE 147 IU/L (15-46); BILIRUBIN,INDIRECT 0.8 mg/dl (0-1.1); BILIRUBIN,TOTAL 1.1 mg/dl (0.2-1.3); CARBON DIOXIDE 23 mmol/L (21-31); CHLORIDE 116 mmol/L (97-110); CREATININE 3.12 mg/dl (0.61-1.24); GLUCOSE 190 mg/dl (70-220); POTASSIUM 4.3 mmol/L (3.5-5.1); SODIUM 147 mmol/L (135-144); TOTAL PROTEIN 5.1 g/dl (6.1-8.1)
[2018-01-16] MEDS: MEROPENEM 500MG/50 ML (PMX) 50 ML IVPB ×2 (07:40→20:37)
[2018-01-16 07:42] LABS: BLOOD UREA NITROGEN 123 mg/dl (7-20)
[2018-01-16 07:42] LABS: LIPASE 2227 U/L (23-300)
[2018-01-16 08:08] LABS: ANISOCYTOSIS 1+ (0-0); BAND NEUTROPHILS #M 4.8 10^3/ul (0.0-0.6); BAND NEUTROPHILS % (M) 25 % (0-4); BURR CELLS 2+ (0-0); GIANT THROMBO% (M) 7 % (0-0); LYMPHOCYTES #M 0.3 10^3/ul (0.8-2.9); LYMPHOCYTES % (M) 2 % (15-51); MONOCYTE #M 0.3 10^3/ul (0.3-0.9); MONOCYTES % (M) 2 % (0-11); PLATELET ESTIMATE NORMAL; POIKILOCYTOSIS 2+ (0-0); SEG NEUT #M 14.6 10^3/ul (1.6-7.5); SEGMENTED NEUTROPHILS (M) % 71 % (39-77)
[2018-01-16] MEDS: NA BICARBONATE 650 MG TAB PO ×3 (09:00→20:37)
[2018-01-16] MEDS: TPN 1,000 ML IV (09:59)
[2018-01-16] MEDS: INSULIN GLARGINE [LANtus] 3 ML PEN SC (11:49)
[2018-01-16] MEDS: INDOMETHACIN 50 MG SUPP PR (19:48)
[2018-01-16] MEDS: LACTULOSE 30ML CUP NGT (21:59)
[2018-01-17] MEDS: INSULIN ASPART [NOVOLOG] 3 ML PEN SC ×6 (01:10→21:30)
[2018-01-17] MEDS: ALBUTEROL/IPRATROPIUM (NEB) 3 ML AMP HHN ×4 (01:48→19:58)
[2018-01-17] MEDS: PANTOPRAZOLE IV 80 MG in SOD CHLORIDE 0.9% 100 ML IV ×3 (03:52→21:52)
[2018-01-17 05:21] LABS: ADD MAN DIFF? NO
[2018-01-17] MEDS: TPN 1,000 ML IV (05:27)
[2018-01-17 05:30] LABS: WHITE BLOOD COUNT 18.2 10^3/ul (4.8-10.8)
[2018-01-17 05:30] LABS: ABNORMAL IP MESSAGE 1; BASOPHILS % 0.2 % (0.0-2.0); EOSINOPHILS # 0.2 10^3/ul (0.0-0.5); LYMPHOCYTES # 0.5 10^3/ul (0.8-2.9); LYMPHOCYTES % 2.5 % (15.0-51.0); MEAN CORPUSCULAR HEMOGLOBIN 30.2 pg (29.0-33.0); MEAN CORPUSCULAR HGB CONC 33.3 g/dl (32.0-37.0); MEAN CORPUSCULAR VOLUME 90.6 fl (82.0-101.0); MONOCYTE # 1.1 10^3/ul (0.3-0.9); NEUTROPHIL # 15.5 10^3/ul (1.6-7.5); NEUTROPHILS % 85.6 % (39.0-77.0); NUCLEATED RED BLOOD CELLS% 0.1 /100WBC (0.0-0.0); PLATELET COUNT 228 10^3/UL (140-415); POSITIVE DIFF @See below; RED BLOOD COUNT 2.98 10^6/ul (4.70-6.10); RED CELL DISTRIBUTION WIDTH 15.4 % (11.5-14.5)
[2018-01-17] MEDS: LEVOTHYROXINE 100 MCG VIAL IV (05:43)
[2018-01-17] MEDS: ONDANSETRON INJ 8 MG in DEXTROSE 5% 50 ML IV ×4 (05:44→23:42)
[2018-01-17] MEDS: LACTULOSE 30ML CUP NGT ×3 (05:44→21:21)
[2018-01-17 06:11] LABS: ALANINE AMINOTRANSFERASE 91 IU/L (13-69); ALBUMIN 2.5 g/dl (3.3-4.9); ALBUMIN/GLOBULIN RATIO 0.92; ALKALINE PHOSPHATASE 100 IU/L (42-121); ANION GAP 15 (8-16); ASPARTATE AMINO TRANSFERASE 165 IU/L (15-46); BILIRUBIN,INDIRECT 0.8 mg/dl (0-1.1); BILIRUBIN,TOTAL 1.1 mg/dl (0.2-1.3); CALCIUM 7.9 mg/dl (8.4-10.2); CARBON DIOXIDE 25 mmol/L (21-31); CHLORIDE 114 mmol/L (97-110); CREATININE 2.89 mg/dl (0.61-1.24); GLUCOSE 167 mg/dl (70-220); LIPASE 1889 U/L (23-300); MAGNESIUM 2.8 mg/dl (1.7-2.5); SODIUM 150 mmol/L (135-144); TOTAL PROTEIN 5.2 g/dl (6.1-8.1)
[2018-01-17 06:34] LABS: BLOOD UREA NITROGEN 133 mg/dl (7-20)
[2018-01-17] MEDS: HYDROmorphONE 1 MG/ML SYG IV ×5 (07:28→21:21)
[2018-01-17 08:00] LABS: BAND NEUTROPHILS #M 3.2 10^3/ul (0.0-0.6); BAND NEUTROPHILS % (M) 18 % (0-4); LYMPHOCYTES #M 0.5 10^3/ul (0.8-2.9); LYMPHOCYTES % (M) 3 % (15-51); METAMYELOCYTES #M 0.1 10^3/ul (0.0-0.0); METAMYELOCYTES %M 1 % (0-0); MONOCYTE #M 0.9 10^3/ul (0.3-0.9); MONOCYTES % (M) 5 % (0-11); PLATELET ESTIMATE NORMAL; POIKILOCYTOSIS 1+ (0-0); POLYCHROMASIA 3+ (0-0); REACTIVE LYMPHOCYTES #M 0.1 10^3/ul (0.0-0.0); REACTIVE LYMPHOCYTES% (M) 1 % (0-0); SEG NEUT #M 13.7 10^3/ul (1.6-7.5); SEGMENTED NEUTROPHILS (M) % 72 % (39-77); SMUDGE%M 2 % (0-0)
[2018-01-17 08:35] LABS: AADO2 Arterial 396.4 mmHg (7.0-24.0); Allen Test ACCEPTAB; Arterial Base Excess -1.7 mmol/L (-3.0-3); Arterial Blood Gas Oxygen Sat 92.3 mmHG (95.0-98.0); Arterial COHb 0.2 % (0.0-3.0); Arterial Fraction of Oxyhgb 91.7 % (93.0-99.0); Arterial HCO3 22.2 mmol/L (22.0-26.0); Arterial MetHb 0.4 % (0.0-1.5); Arterial Total Hemglobin 9.4 g/dl (12.0-18.0); MODE HFNC; Site Right Radial
[2018-01-17] MEDS: DEXTROSE 5% 1,000 ML IV ×2 (08:56→23:43)
[2018-01-17] MEDS: INSULIN GLARGINE [LANtus] 3 ML PEN SC (08:59)
[2018-01-17] MEDS: MEROPENEM 500MG/50 ML (PMX) 50 ML IVPB ×2 (10:02→21:21)
[2018-01-18] MEDS: INSULIN ASPART [NOVOLOG] 3 ML PEN SC ×6 (01:01→21:19)
[2018-01-18] MEDS: TPN 1,000 ML IV (01:09)
[2018-01-18] MEDS: ALBUTEROL/IPRATROPIUM (NEB) 3 ML AMP HHN ×3 (01:29→19:27)
[2018-01-18] MEDS: LEVOTHYROXINE 100 MCG VIAL IV (06:04)
[2018-01-18] MEDS: ONDANSETRON INJ 8 MG in DEXTROSE 5% 50 ML IV ×3 (06:04→17:16)
[2018-01-18] MEDS: LACTULOSE 30ML CUP NGT ×3 (06:04→22:00)
[2018-01-18 06:33] LABS: ADD MAN DIFF? NO
[2018-01-18 06:39] LABS: ABNORMAL IP MESSAGE 1; BASOPHILS % 0.1 % (0.0-2.0); EOSINOPHILS # 0.1 10^3/ul (0.0-0.5); EOSINOPHILS % 0.7 % (0.0-7.0); HEMATOCRIT 26.7 % (42.0-52.0); HEMOGLOBIN 8.9 g/dl (14.0-18.0); LYMPHOCYTES # 0.5 10^3/ul (0.8-2.9); LYMPHOCYTES % 3.3 % (15.0-51.0); MEAN CORPUSCULAR HEMOGLOBIN 30.3 pg (29.0-33.0); MEAN CORPUSCULAR HGB CONC 33.3 g/dl (32.0-37.0); MEAN CORPUSCULAR VOLUME 90.8 fl (82.0-101.0); MEAN PLATELET VOLUME 11.6 fl (7.4-10.4); MONOCYTE # 0.9 10^3/ul (0.3-0.9); MONOCYTES % 5.7 % (0.0-11.0); NEUTROPHIL # 13.7 10^3/ul (1.6-7.5); NEUTROPHILS % 85.3 % (39.0-77.0); PLATELET COUNT 215 10^3/UL (140-415); POSITIVE DIFF @See below; RED BLOOD COUNT 2.94 10^6/ul (4.70-6.10); RED CELL DISTRIBUTION WIDTH 15.2 % (11.5-14.5)
[2018-01-18 06:39] LABS: WHITE BLOOD COUNT 16.1 10^3/ul (4.8-10.8)
[2018-01-18 07:16] LABS: ALANINE AMINOTRANSFERASE 101 IU/L (13-69); ALBUMIN 2.4 g/dl (3.3-4.9); ALKALINE PHOSPHATASE 112 IU/L (42-121); ANION GAP 11 (8-16); ASPARTATE AMINO TRANSFERASE 203 IU/L (15-46); BILIRUBIN,INDIRECT 0.9 mg/dl (0-1.1); BILIRUBIN,TOTAL 0.9 mg/dl (0.2-1.3); CALCIUM 7.8 mg/dl (8.4-10.2); CARBON DIOXIDE 24 mmol/L (21-31); CHLORIDE 119 mmol/L (97-110); CREATININE 2.81 mg/dl (0.61-1.24); GLUCOSE 192 mg/dl (70-220); LIPASE 1884 U/L (23-300); MAGNESIUM 2.8 mg/dl (1.7-2.5); POTASSIUM 4.1 mmol/L (3.5-5.1); SODIUM 150 mmol/L (135-144); TOTAL PROTEIN 5.4 g/dl (6.1-8.1)
[2018-01-18] MEDS: PANTOPRAZOLE IV 80 MG in SOD CHLORIDE 0.9% 100 ML IV ×2 (08:35→22:08)
[2018-01-18] MEDS: HYDROmorphONE 1 MG/ML SYG IV ×3 (08:37→17:16)
[2018-01-18 08:42] LABS: BLOOD UREA NITROGEN 130 mg/dl (7-20)
[2018-01-18] MEDS: INSULIN GLARGINE [LANtus] 3 ML PEN SC (08:43)
[2018-01-18] MEDS: MEROPENEM 500MG/50 ML (PMX) 50 ML IVPB ×2 (08:45→21:11)
[2018-01-18 09:13] LABS: BAND NEUTROPHILS #M 1.4 10^3/ul (0.0-0.6); BAND NEUTROPHILS % (M) 9 % (0-4); EOSINOPHILS % (M) 2 % (0-7); GIANT THROMBO% (M) 1 % (0-0); LYMPHOCYTES #M 0.1 10^3/ul (0.8-2.9); LYMPHOCYTES % (M) 1 % (15-51); METAMYELOCYTES #M 0.1 10^3/ul (0.0-0.0); METAMYELOCYTES %M 1 % (0-0); MONOCYTE #M 0.8 10^3/ul (0.3-0.9); MONOCYTES % (M) 5 % (0-11); PLATELET ESTIMATE NORMAL; POIKILOCYTOSIS 1+ (0-0); POLYCHROMASIA 1+ (0-0); SEG NEUT #M 13.4 10^3/ul (1.6-7.5); SEGMENTED NEUTROPHILS (M) % 82 % (39-77)
[2018-01-18] MEDS: DEXTROSE 5% 1,000 ML IV ×2 (11:46→20:48)
[2018-01-18] MEDS: LORAZEPAM 2 MG INJ IV (11:46)
[2018-01-19] MEDS: TPN 1,000 ML IV ×2 (00:48→21:35)
[2018-01-19] MEDS: ONDANSETRON INJ 8 MG in DEXTROSE 5% 50 ML IV ×4 (00:48→17:27)
[2018-01-19] MEDS: INSULIN ASPART [NOVOLOG] 3 ML PEN SC ×6 (00:52→20:41)
[2018-01-19] MEDS: ALBUTEROL/IPRATROPIUM (NEB) 3 ML AMP HHN ×4 (01:17→19:09)
[2018-01-19] MEDS: DEXTROSE 5% 1,000 ML IV ×3 (04:02→23:06)
[2018-01-19 05:52] LABS: ADD MAN DIFF? NO
[2018-01-19 05:59] LABS: ABNORMAL IP MESSAGE 1; BASOPHILS % 0.1 % (0.0-2.0); EOSINOPHILS # 0.1 10^3/ul (0.0-0.5); EOSINOPHILS % 0.8 % (0.0-7.0); HEMOGLOBIN 8.7 g/dl (14.0-18.0); LYMPHOCYTES # 0.5 10^3/ul (0.8-2.9); LYMPHOCYTES % 3.7 % (15.0-51.0); MEAN CORPUSCULAR HGB CONC 32.2 g/dl (32.0-37.0); MEAN CORPUSCULAR VOLUME 93.1 fl (82.0-101.0); MEAN PLATELET VOLUME 11.7 fl (7.4-10.4); MONOCYTE # 0.9 10^3/ul (0.3-0.9); MONOCYTES % 6.2 % (0.0-11.0); NEUTROPHIL # 12.1 10^3/ul (1.6-7.5); NEUTROPHILS % 86.6 % (39.0-77.0); PLATELET COUNT 206 10^3/UL (140-415); POSITIVE DIFF @See below; RED CELL DISTRIBUTION WIDTH 15.2 % (11.5-14.5)
[2018-01-19] MEDS: LEVOTHYROXINE 100 MCG VIAL IV (06:00)
[2018-01-19] MEDS: LACTULOSE 30ML CUP NGT ×2 (06:00→13:49)
[2018-01-19 06:27] LABS: ALANINE AMINOTRANSFERASE 97 IU/L (13-69); ALBUMIN 2.3 g/dl (3.3-4.9); ALBUMIN/GLOBULIN RATIO 0.82; ALKALINE PHOSPHATASE 107 IU/L (42-121); ANION GAP 13 (8-16); ASPARTATE AMINO TRANSFERASE 191 IU/L (15-46); BILIRUBIN,INDIRECT 0.6 mg/dl (0-1.1); BILIRUBIN,TOTAL 0.6 mg/dl (0.2-1.3); BLOOD UREA NITROGEN 118 mg/dl (7-20); CALCIUM 7.6 mg/dl (8.4-10.2); CARBON DIOXIDE 24 mmol/L (21-31); CHLORIDE 118 mmol/L (97-110); CREATININE 2.54 mg/dl (0.61-1.24); GLUCOSE 204 mg/dl (70-220); LIPASE 1678 U/L (23-300); MAGNESIUM 2.7 mg/dl (1.7-2.5); POTASSIUM 4.2 mmol/L (3.5-5.1); SODIUM 151 mmol/L (135-144); TOTAL PROTEIN 5.1 g/dl (6.1-8.1)
[2018-01-19 07:38] LABS: AADO2 Arterial 399.9 mmHg (7.0-24.0); Allen Test ACCEPTAB; Arterial Base Excess -3.3 mmol/L (-3.0-3); Arterial Blood Gas Oxygen Sat 92.1 mmHG (95.0-98.0); Arterial COHb 0.2 % (0.0-3.0); Arterial Fraction of Oxyhgb 91.5 % (93.0-99.0); Arterial HCO3 20.3 mmol/L (22.0-26.0); Arterial MetHb 0.4 % (0.0-1.5); Arterial Total Hemglobin 11.7 g/dl (12.0-18.0); Arterial pCO2 31.7 mmhg (35-45); MODE HFNC; Site Right Radial
[2018-01-19] MEDS: PANTOPRAZOLE IV 80 MG in SOD CHLORIDE 0.9% 100 ML IV ×2 (08:44→15:30)
[2018-01-19] MEDS: MEROPENEM 500MG/50 ML (PMX) 50 ML IVPB ×2 (08:46→20:41)
[2018-01-19] MEDS: INSULIN GLARGINE [LANtus] 3 ML PEN SC (08:49)
[2018-01-19] MEDS: LORAZEPAM 2 MG INJ IV (17:27)
[2018-01-19] MEDS: PIPER-TAZO 2.25 GM (PMX) 50 ML IVPB (17:30)
[2018-01-19] MEDS ORDERED: METOPROLOL 5 MG INJ IV (19:00)
[2018-01-19] MEDS: BALSAM PERU/CASTOR OIL 60 GM TUBE TOP (20:40)
[2018-01-19] MEDS: HYDROmorphONE 1 MG/ML SYG IV (23:06)
[2018-01-20] MEDS: ONDANSETRON INJ 8 MG in DEXTROSE 5% 50 ML IV ×5 (00:36→23:34)
[2018-01-20] MEDS: PIPER-TAZO 2.25 GM (PMX) 50 ML IVPB ×2 (00:36→05:51)
[2018-01-20] MEDS: INSULIN ASPART [NOVOLOG] 3 ML PEN SC ×6 (00:45→20:51)
[2018-01-20] MEDS: ALBUTEROL/IPRATROPIUM (NEB) 3 ML AMP HHN ×4 (01:12→19:35)
[2018-01-20 05:24] LABS: ADD MAN DIFF? NO
[2018-01-20 05:38] LABS: WHITE BLOOD COUNT 14.6 10^3/ul (4.8-10.8)
[2018-01-20 05:38] LABS: BASOPHILS % 0.2 % (0.0-2.0); EOSINOPHILS # 0.2 10^3/ul (0.0-0.5); EOSINOPHILS % 1.2 % (0.0-7.0); HEMATOCRIT 28.4 % (42.0-52.0); HEMOGLOBIN 8.9 g/dl (14.0-18.0); LYMPHOCYTES # 0.7 10^3/ul (0.8-2.9); LYMPHOCYTES % 4.6 % (15.0-51.0); MEAN CORPUSCULAR HEMOGLOBIN 29.7 pg (29.0-33.0); MEAN CORPUSCULAR HGB CONC 31.3 g/dl (32.0-37.0); MEAN CORPUSCULAR VOLUME 94.7 fl (82.0-101.0); MEAN PLATELET VOLUME 11.8 fl (7.4-10.4); MONOCYTE # 0.9 10^3/ul (0.3-0.9); NEUTROPHIL # 12.5 10^3/ul (1.6-7.5); NEUTROPHILS % 85.9 % (39.0-77.0); PLATELET COUNT 221 10^3/UL (140-415); RED CELL DISTRIBUTION WIDTH 15.2 % (11.5-14.5)
[2018-01-20] MEDS: LEVOTHYROXINE 100 MCG VIAL IV (05:51)
[2018-01-20 06:01] LABS: AMMONIA 12 umol/l (9-30)
[2018-01-20 06:04] LABS: PHOSPHORUS 5.6 mg/dl (2.5-4.9)
[2018-01-20 06:04] LABS: ALANINE AMINOTRANSFERASE 105 IU/L (13-69); ALBUMIN 2.4 g/dl (3.3-4.9); ALBUMIN/GLOBULIN RATIO 0.92; ALKALINE PHOSPHATASE 112 IU/L (42-121); ANION GAP 13 (8-16); ASPARTATE AMINO TRANSFERASE 210 IU/L (15-46); BILIRUBIN,INDIRECT 0.5 mg/dl (0-1.1); BILIRUBIN,TOTAL 0.5 mg/dl (0.2-1.3); BLOOD UREA NITROGEN 110 mg/dl (7-20); CALCIUM 7.7 mg/dl (8.4-10.2); CARBON DIOXIDE 23 mmol/L (21-31); CHLORIDE 118 mmol/L (97-110); CREATININE 2.28 mg/dl (0.61-1.24); GLUCOSE 156 mg/dl (70-220); MAGNESIUM 2.5 mg/dl (1.7-2.5); POTASSIUM 4.3 mmol/L (3.5-5.1); SODIUM 150 mmol/L (135-144)
[2018-01-20 06:05] LABS: LIPASE 1810 U/L (23-300)
[2018-01-20] MEDS: DEXTROSE 5% 1,000 ML IV ×4 (06:39→23:35)
[2018-01-20 07:19] LABS: AADO2 Arterial 394.5 mmHg (7.0-24.0); Allen Test ACCEPTAB; Arterial Base Excess -3.5 mmol/L (-3.0-3); Arterial Blood Gas Oxygen Sat 93.8 mmHG (95.0-98.0); Arterial COHb 0.3 % (0.0-3.0); Arterial Fraction of Oxyhgb 93.1 % (93.0-99.0); Arterial HCO3 19.8 mmol/L (22.0-26.0); Arterial MetHb 0.4 % (0.0-1.5); Arterial Total Hemglobin 10.3 g/dl (12.0-18.0); Arterial pCO2 29.8 mmhg (35-45); MODE HFNC; Site Right Radial
[2018-01-20] MEDS: HYDROmorphONE 1 MG/ML SYG IV ×4 (07:52→23:20)
[2018-01-20 08:59] LABS: PREALBUMIN 6.8 mg/dl (17.6-36.0)
[2018-01-20] MEDS ORDERED: LACTULOSE 30ML CUP NGT (09:00)
[2018-01-20] MEDS: INSULIN GLARGINE [LANtus] 3 ML PEN SC (09:48)
[2018-01-20] MEDS: BALSAM PERU/CASTOR OIL 60 GM TUBE TOP ×2 (09:49→20:54)
[2018-01-20] MEDS: MEROPENEM 500MG/50 ML (PMX) 50 ML IVPB (09:51)
[2018-01-20] MEDS: METOCLOPRAMIDE 10 MG INJ IV (11:18)
[2018-01-20] MEDS: PIPER-TAZO 3.375 GM IV (PMX) 100 ML IVPB ×3 (11:20→23:33)
[2018-01-21] MEDS: INSULIN ASPART [NOVOLOG] 3 ML PEN SC ×6 (01:00→21:12)
[2018-01-21] MEDS: ALBUTEROL/IPRATROPIUM (NEB) 3 ML AMP HHN ×4 (01:20→19:15)
[2018-01-21] MEDS: HYDROmorphONE 1 MG/ML SYG IV ×2 (02:44→21:59)
[2018-01-21] MEDS: TPN 1,000 ML IV ×2 (04:28→23:56)
[2018-01-21 05:35] LABS: ADD MAN DIFF? NO
[2018-01-21 05:44] LABS: BASOPHILS % 0.1 % (0.0-2.0); EOSINOPHILS # 0.2 10^3/ul (0.0-0.5); EOSINOPHILS % 1.2 % (0.0-7.0); HEMOGLOBIN 8.3 g/dl (14.0-18.0); LYMPHOCYTES # 0.7 10^3/ul (0.8-2.9); LYMPHOCYTES % 5.3 % (15.0-51.0); MEAN CORPUSCULAR HEMOGLOBIN 29.2 pg (29.0-33.0); MEAN CORPUSCULAR HGB CONC 31.9 g/dl (32.0-37.0); MEAN CORPUSCULAR VOLUME 91.5 fl (82.0-101.0); MEAN PLATELET VOLUME 12.1 fl (7.4-10.4); MONOCYTE # 0.8 10^3/ul (0.3-0.9); MONOCYTES % 6.1 % (0.0-11.0); NEUTROPHIL # 11.1 10^3/ul (1.6-7.5); NEUTROPHILS % 86.1 % (39.0-77.0); PLATELET COUNT 204 10^3/UL (140-415); RED BLOOD COUNT 2.84 10^6/ul (4.70-6.10); RED CELL DISTRIBUTION WIDTH 15.2 % (11.5-14.5)
[2018-01-21 05:44] LABS: WHITE BLOOD COUNT 12.9 10^3/ul (4.8-10.8)
[2018-01-21 06:04] LABS: LIPASE 1698 U/L (23-300)
[2018-01-21] MEDS: LEVOTHYROXINE 100 MCG VIAL IV (06:06)
[2018-01-21 06:07] LABS: ALANINE AMINOTRANSFERASE 104 IU/L (13-69); ALBUMIN 2.3 g/dl (3.3-4.9); ALBUMIN/GLOBULIN RATIO 0.82; ALKALINE PHOSPHATASE 111 IU/L (42-121); ANION GAP 15 (8-16); ASPARTATE AMINO TRANSFERASE 195 IU/L (15-46); BILIRUBIN,INDIRECT 0.5 mg/dl (0-1.1); BILIRUBIN,TOTAL 0.5 mg/dl (0.2-1.3); BLOOD UREA NITROGEN 96 mg/dl (7-20); CALCIUM 7.7 mg/dl (8.4-10.2); CARBON DIOXIDE 22 mmol/L (21-31); CHLORIDE 115 mmol/L (97-110); CREATININE 2.34 mg/dl (0.61-1.24); GLUCOSE 139 mg/dl (70-220); MAGNESIUM 2.3 mg/dl (1.7-2.5); POTASSIUM 4.3 mmol/L (3.5-5.1); SODIUM 148 mmol/L (135-144); TOTAL PROTEIN 5.1 g/dl (6.1-8.1)
[2018-01-21] MEDS: PIPER-TAZO 3.375 GM IV (PMX) 100 ML IVPB ×4 (06:07→23:57)
[2018-01-21] MEDS: ONDANSETRON INJ 8 MG in DEXTROSE 5% 50 ML IV ×4 (06:07→23:57)
[2018-01-21 06:10] LABS: PHOSPHORUS 6.3 mg/dl (2.5-4.9)
[2018-01-21] MEDS: DEXTROSE 5% 1,000 ML IV ×3 (07:46→21:14)
[2018-01-21] MEDS: INSULIN GLARGINE [LANtus] 3 ML PEN SC (09:46)
[2018-01-21] MEDS: BALSAM PERU/CASTOR OIL 60 GM TUBE TOP ×2 (09:48→21:13)
[2018-01-22] MEDS: INSULIN ASPART [NOVOLOG] 3 ML PEN SC ×6 (01:12→21:00)
[2018-01-22] MEDS: ALBUTEROL/IPRATROPIUM (NEB) 3 ML AMP HHN ×4 (01:27→20:00)
[2018-01-22] MEDS: HYDROmorphONE 1 MG/ML SYG IV ×3 (03:37→12:07)
[2018-01-22] MEDS: DEXTROSE 5% 1,000 ML IV ×5 (04:20→23:57)
[2018-01-22 05:34] LABS: ADD MAN DIFF? NO
[2018-01-22 05:42] LABS: WHITE BLOOD COUNT 12.8 10^3/ul (4.8-10.8)
[2018-01-22 05:42] LABS: BASOPHILS % 0.1 % (0.0-2.0); EOSINOPHILS # 0.2 10^3/ul (0.0-0.5); EOSINOPHILS % 1.5 % (0.0-7.0); LYMPHOCYTES # 0.7 10^3/ul (0.8-2.9); LYMPHOCYTES % 5.6 % (15.0-51.0); MEAN CORPUSCULAR HEMOGLOBIN 29.5 pg (29.0-33.0); MEAN CORPUSCULAR VOLUME 92.3 fl (82.0-101.0); MEAN PLATELET VOLUME 11.6 fl (7.4-10.4); MONOCYTE # 0.7 10^3/ul (0.3-0.9); MONOCYTES % 5.1 % (0.0-11.0); NEUTROPHIL # 11.1 10^3/ul (1.6-7.5); NEUTROPHILS % 86.7 % (39.0-77.0); PLATELET COUNT 222 10^3/UL (140-415); RED BLOOD COUNT 2.71 10^6/ul (4.70-6.10); RED CELL DISTRIBUTION WIDTH 14.9 % (11.5-14.5)
[2018-01-22] MEDS: PIPER-TAZO 3.375 GM IV (PMX) 100 ML IVPB ×4 (06:00→23:58)
[2018-01-22] MEDS: LEVOTHYROXINE 100 MCG VIAL IV (06:00)
[2018-01-22] MEDS: ONDANSETRON INJ 8 MG in DEXTROSE 5% 50 ML IV ×4 (06:00→23:36)
[2018-01-22 06:02] LABS: LIPASE 1740 U/L (23-300)
[2018-01-22 06:03] LABS: PHOSPHORUS 5.3 mg/dl (2.5-4.9)
[2018-01-22 06:19] LABS: ALANINE AMINOTRANSFERASE 102 IU/L (13-69); ALBUMIN 2.2 g/dl (3.3-4.9); ALBUMIN/GLOBULIN RATIO 0.73; ALKALINE PHOSPHATASE 106 IU/L (42-121); ANION GAP 12 (8-16); ASPARTATE AMINO TRANSFERASE 180 IU/L (15-46); BILIRUBIN,INDIRECT 0.5 mg/dl (0-1.1); BILIRUBIN,TOTAL 0.5 mg/dl (0.2-1.3); BLOOD UREA NITROGEN 76 mg/dl (7-20); CALCIUM 7.5 mg/dl (8.4-10.2); CARBON DIOXIDE 22 mmol/L (21-31); CHLORIDE 116 mmol/L (97-110); CREATININE 2.15 mg/dl (0.61-1.24); GLUCOSE 156 mg/dl (70-220); MAGNESIUM 2.1 mg/dl (1.7-2.5); POTASSIUM 3.8 mmol/L (3.5-5.1); SODIUM 146 mmol/L (135-144); TOTAL PROTEIN 5.2 g/dl (6.1-8.1)
[2018-01-22] MEDS: BALSAM PERU/CASTOR OIL 60 GM TUBE TOP ×2 (08:23→21:00)
[2018-01-22] MEDS: INSULIN GLARGINE [LANtus] 3 ML PEN SC (08:25)
[2018-01-22] MEDS: TPN 1,000 ML IV (20:04)
[2018-01-23] MEDS: INSULIN ASPART [NOVOLOG] 3 ML PEN SC ×7 (01:00→20:57)
[2018-01-23] MEDS: ALBUTEROL/IPRATROPIUM (NEB) 3 ML AMP HHN ×4 (01:18→19:53)
[2018-01-23] MEDS: DEXTROSE 5% 1,000 ML IV ×3 (02:20→20:14)
[2018-01-23] MEDS: PIPER-TAZO 3.375 GM IV (PMX) 100 ML IVPB ×4 (05:39→23:44)
[2018-01-23] MEDS: ONDANSETRON INJ 8 MG in DEXTROSE 5% 50 ML IV ×4 (05:39→23:44)
[2018-01-23] MEDS: BALSAM PERU/CASTOR OIL 60 GM TUBE TOP ×3 (05:40→20:57)
[2018-01-23] MEDS: LEVOTHYROXINE 100 MCG VIAL IV (06:13)
[2018-01-23 08:04] LABS: ADD MAN DIFF? NO
[2018-01-23 08:07] LABS: BASOPHILS % 0.1 % (0.0-2.0); EOSINOPHILS # 0.2 10^3/ul (0.0-0.5); EOSINOPHILS % 1.6 % (0.0-7.0); HEMATOCRIT 24.5 % (42.0-52.0); LYMPHOCYTES # 0.8 10^3/ul (0.8-2.9); LYMPHOCYTES % 6.8 % (15.0-51.0); MEAN CORPUSCULAR HEMOGLOBIN 29.6 pg (29.0-33.0); MEAN CORPUSCULAR HGB CONC 32.7 g/dl (32.0-37.0); MEAN CORPUSCULAR VOLUME 90.7 fl (82.0-101.0); MONOCYTE # 0.7 10^3/ul (0.3-0.9); MONOCYTES % 5.9 % (0.0-11.0); NEUTROPHIL # 9.8 10^3/ul (1.6-7.5); NEUTROPHILS % 84.7 % (39.0-77.0); PLATELET COUNT 257 10^3/UL (140-415); RED CELL DISTRIBUTION WIDTH 14.6 % (11.5-14.5)
[2018-01-23 08:07] LABS: WHITE BLOOD COUNT 11.6 10^3/ul (4.8-10.8)
[2018-01-23] MEDS: INSULIN GLARGINE [LANtus] 3 ML PEN SC (08:22)
[2018-01-23 08:29] LABS: ANION GAP 12 (8-16); BLOOD UREA NITROGEN 57 mg/dl (7-20); CALCIUM 7.3 mg/dl (8.4-10.2); CARBON DIOXIDE 22 mmol/L (21-31); CHLORIDE 112 mmol/L (97-110); CREATININE 1.84 mg/dl (0.61-1.24); GLUCOSE 140 mg/dl (70-220); MAGNESIUM 1.8 mg/dl (1.7-2.5); PHOSPHORUS 4.6 mg/dl (2.5-4.9); POTASSIUM 3.6 mmol/L (3.5-5.1); SODIUM 142 mmol/L (135-144)
[2018-01-23 08:35] LABS: LIPASE 1464 U/L (23-300)
[2018-01-23] MEDS: LORAZEPAM 2 MG INJ IV ×2 (11:20→18:07)
[2018-01-23] MEDS: TPN 1,000 ML IV (18:07)
[2018-01-24] MEDS: LORAZEPAM 2 MG INJ IV ×2 (00:38→16:36)
[2018-01-24] MEDS: INSULIN ASPART [NOVOLOG] 3 ML PEN SC ×6 (01:00→21:00)
[2018-01-24] MEDS: ALBUTEROL/IPRATROPIUM (NEB) 3 ML AMP HHN ×4 (02:00→20:25)
[2018-01-24] MEDS: LEVOTHYROXINE 100 MCG VIAL IV (06:14)
[2018-01-24] MEDS: ONDANSETRON INJ 8 MG in DEXTROSE 5% 50 ML IV ×3 (06:15→18:06)
[2018-01-24] MEDS: PIPER-TAZO 3.375 GM IV (PMX) 100 ML IVPB ×3 (06:15→18:06)
[2018-01-24 07:41] LABS: ADD MAN DIFF? NO
[2018-01-24 07:52] LABS: BASOPHILS % 0.3 % (0.0-2.0); EOSINOPHILS # 0.2 10^3/ul (0.0-0.5); EOSINOPHILS % 1.9 % (0.0-7.0); HEMATOCRIT 25.9 % (42.0-52.0); HEMOGLOBIN 7.7 g/dl (14.0-18.0); LYMPHOCYTES # 0.9 10^3/ul (0.8-2.9); LYMPHOCYTES % 8.4 % (15.0-51.0); MEAN CORPUSCULAR HEMOGLOBIN 28.8 pg (29.0-33.0); MEAN CORPUSCULAR HGB CONC 29.7 g/dl (32.0-37.0); MEAN PLATELET VOLUME 11.3 fl (7.4-10.4); MONOCYTE # 0.8 10^3/ul (0.3-0.9); MONOCYTES % 6.9 % (0.0-11.0); NEUTROPHIL # 9.1 10^3/ul (1.6-7.5); NEUTROPHILS % 81.8 % (39.0-77.0); PLATELET COUNT 310 10^3/UL (140-415); RED BLOOD COUNT 2.67 10^6/ul (4.70-6.10)
[2018-01-24 07:52] LABS: WHITE BLOOD COUNT 11.1 10^3/ul (4.8-10.8)
[2018-01-24 08:07] LABS: ALANINE AMINOTRANSFERASE 108 IU/L (13-69); ALBUMIN 2.2 g/dl (3.3-4.9); ALBUMIN/GLOBULIN RATIO 0.91; ALKALINE PHOSPHATASE 73 IU/L (42-121); ANION GAP 14 (8-16); ASPARTATE AMINO TRANSFERASE 175 IU/L (15-46); BILIRUBIN,INDIRECT 0.3 mg/dl (0-1.1); BILIRUBIN,TOTAL 0.3 mg/dl (0.2-1.3); BLOOD UREA NITROGEN 40 mg/dl (7-20); CALCIUM 7.6 mg/dl (8.4-10.2); CARBON DIOXIDE 23 mmol/L (21-31); CHLORIDE 102 mmol/L (97-110); CREATININE 1.78 mg/dl (0.61-1.24); MAGNESIUM 1.5 mg/dl (1.7-2.5); POTASSIUM 5.3 mmol/L (3.5-5.1); SODIUM 134 mmol/L (135-144); TOTAL PROTEIN 4.6 g/dl (6.1-8.1)
[2018-01-24 08:20] LABS: LIPASE 1199 U/L (23-300)
[2018-01-24 08:41] LABS: GLUCOSE 858 mg/dl (70-220)
[2018-01-24 10:47] LABS: GLUCOSE 120 mg/dl (70-220)
[2018-01-24] MEDS: INSULIN GLARGINE [LANtus] 3 ML PEN SC (11:13)
[2018-01-24] MEDS: DEXTROSE 5% 1,000 ML IV (11:17)
[2018-01-24] MEDS: BALSAM PERU/CASTOR OIL 60 GM TUBE TOP ×2 (11:17→21:49)
[2018-01-24 11:27] LABS: ANION GAP 10 (8-16); BLOOD UREA NITROGEN 45 mg/dl (7-20); CALCIUM 7.6 mg/dl (8.4-10.2); CARBON DIOXIDE 24 mmol/L (21-31); CHLORIDE 113 mmol/L (97-110); CREATININE 1.55 mg/dl (0.61-1.24); GLUCOSE 119 mg/dl (70-220); POTASSIUM 3.8 mmol/L (3.5-5.1); SODIUM 143 mmol/L (135-144)
[2018-01-24] MEDS: MAGNESIUM SULFATE 2 GM/50 ML 50 ML IVPB (12:36)
[2018-01-24] MEDS: FUROSEMIDE 40 MG INJ IV (12:45)
[2018-01-24] MEDS: POTASSIUM CHLORIDE 100 ML IVPB (13:12)
[2018-01-24] MEDS: TPN 1,000 ML IV (18:06)
[2018-01-24] MEDS: EPOETIN 10000 UNITS/1 ML INJ (ESRD) SC (18:23)
[2018-01-25] MEDS: LORAZEPAM 2 MG INJ IV ×4 (00:01→21:53)
[2018-01-25] MEDS: PIPER-TAZO 3.375 GM IV (PMX) 100 ML IVPB ×6 (00:02→21:49)
[2018-01-25] MEDS: INSULIN ASPART [NOVOLOG] 3 ML PEN SC ×6 (00:18→21:00)
[2018-01-25] MEDS: ONDANSETRON INJ 8 MG in DEXTROSE 5% 50 ML IV ×4 (00:57→21:00)
[2018-01-25] MEDS: ALBUTEROL/IPRATROPIUM (NEB) 3 ML AMP HHN ×4 (01:21→21:18)
[2018-01-25] MEDS: LEVOTHYROXINE 100 MCG VIAL IV (05:19)
[2018-01-25 06:10] LABS: ADD MAN DIFF? NO
[2018-01-25 06:15] LABS: WHITE BLOOD COUNT 9.3 10^3/ul (4.8-10.8)
[2018-01-25 06:15] LABS: BASOPHILS % 0.2 % (0.0-2.0); EOSINOPHILS # 0.2 10^3/ul (0.0-0.5); EOSINOPHILS % 2.3 % (0.0-7.0); HEMATOCRIT 24.7 % (42.0-52.0); HEMOGLOBIN 7.8 g/dl (14.0-18.0); LYMPHOCYTES % 10.5 % (15.0-51.0); MEAN CORPUSCULAR HEMOGLOBIN 29.2 pg (29.0-33.0); MEAN CORPUSCULAR HGB CONC 31.6 g/dl (32.0-37.0); MEAN CORPUSCULAR VOLUME 92.5 fl (82.0-101.0); MEAN PLATELET VOLUME 10.3 fl (7.4-10.4); MONOCYTE # 0.8 10^3/ul (0.3-0.9); MONOCYTES % 8.7 % (0.0-11.0); NEUTROPHIL # 7.2 10^3/ul (1.6-7.5); NEUTROPHILS % 77.5 % (39.0-77.0); PLATELET COUNT 329 10^3/UL (140-415); RED BLOOD COUNT 2.67 10^6/ul (4.70-6.10); RED CELL DISTRIBUTION WIDTH 14.5 % (11.5-14.5)
[2018-01-25 06:30] LABS: IRON 18 ug/dl (35-150)
[2018-01-25 06:40] LABS: % IRON SATURATION 11 % SAT (22-52); TOTAL IRON BINDING CAPACITY 168 ug/dl (241-421)
[2018-01-25 06:53] LABS: ALANINE AMINOTRANSFERASE 114 IU/L (13-69); ALBUMIN 2.3 g/dl (3.3-4.9); ALBUMIN/GLOBULIN RATIO 0.82; ALKALINE PHOSPHATASE 98 IU/L (42-121); ANION GAP 13 (8-16); ASPARTATE AMINO TRANSFERASE 153 IU/L (15-46); BILIRUBIN,INDIRECT 0.2 mg/dl (0-1.1); BILIRUBIN,TOTAL 0.2 mg/dl (0.2-1.3); BLOOD UREA NITROGEN 40 mg/dl (7-20); CALCIUM 7.5 mg/dl (8.4-10.2); CARBON DIOXIDE 28 mmol/L (21-31); CHLORIDE 107 mmol/L (97-110); CREATININE 1.76 mg/dl (0.61-1.24); GLUCOSE 129 mg/dl (70-220); MAGNESIUM 1.9 mg/dl (1.7-2.5); PHOSPHORUS 4.9 mg/dl (2.5-4.9); POTASSIUM 3.3 mmol/L (3.5-5.1); SODIUM 145 mmol/L (135-144); TOTAL PROTEIN 5.1 g/dl (6.1-8.1)
[2018-01-25] MEDS: TPN 1,000 ML IV ×2 (08:00→16:23)
[2018-01-25] MEDS: ACETYLCYSTEINE 20% 4 ML VIAL NEB ×3 (08:14→21:18)
[2018-01-25] MEDS: DEXTROSE 5% 1,000 ML IV (08:33)
[2018-01-25] MEDS: BALSAM PERU/CASTOR OIL 60 GM TUBE TOP ×2 (08:34→21:00)
[2018-01-25] MEDS: INSULIN GLARGINE [LANtus] 3 ML PEN SC (08:38)
[2018-01-25 10:00] LABS: AMYLASE 108 U/L (11-123)
[2018-01-25 10:00] LABS: LIPASE 895 U/L (23-300)
[2018-01-25] MEDS: POTASSIUM CHLORIDE 100 ML IVPB ×2 (10:52→16:22)
[2018-01-25] MEDS: SOD FERRIC GLUC COMPLX 125 MG in SOD CHLORIDE 0.9% 100 ML IVPB (19:52)
[2018-01-26] MEDS: DEXTROSE 5% 1,000 ML IV ×3 (00:30→22:25)
[2018-01-26] MEDS: INSULIN ASPART [NOVOLOG] 3 ML PEN SC ×6 (01:00→20:51)
[2018-01-26] MEDS: ONDANSETRON INJ 8 MG in DEXTROSE 5% 50 ML IV ×5 (01:48→23:00)
[2018-01-26] MEDS: PIPER-TAZO 3.375 GM IV (PMX) 100 ML IVPB ×3 (02:19→12:35)
[2018-01-26] MEDS: ALBUTEROL/IPRATROPIUM (NEB) 3 ML AMP HHN ×4 (04:14→19:14)
[2018-01-26] MEDS: ACETYLCYSTEINE 20% 4 ML VIAL NEB ×4 (04:15→19:14)
[2018-01-26 05:53] LABS: ADD MAN DIFF? NO
[2018-01-26 06:04] LABS: WHITE BLOOD COUNT 7.6 10^3/ul (4.8-10.8)
[2018-01-26 06:04] LABS: BASOPHILS % 0.4 % (0.0-2.0); EOSINOPHILS # 0.2 10^3/ul (0.0-0.5); HEMOGLOBIN 8.2 g/dl (14.0-18.0); LYMPHOCYTES # 0.9 10^3/ul (0.8-2.9); LYMPHOCYTES % 11.5 % (15.0-51.0); MEAN CORPUSCULAR HGB CONC 31.5 g/dl (32.0-37.0); MEAN CORPUSCULAR VOLUME 91.9 fl (82.0-101.0); MEAN PLATELET VOLUME 10.2 fl (7.4-10.4); MONOCYTE # 0.8 10^3/ul (0.3-0.9); MONOCYTES % 10.3 % (0.0-11.0); NEUTROPHIL # 5.6 10^3/ul (1.6-7.5); NEUTROPHILS % 74.3 % (39.0-77.0); PLATELET COUNT 385 10^3/UL (140-415); RED BLOOD COUNT 2.83 10^6/ul (4.70-6.10); RED CELL DISTRIBUTION WIDTH 14.4 % (11.5-14.5)
[2018-01-26] MEDS: LEVOTHYROXINE 100 MCG VIAL IV (06:06)
[2018-01-26 06:17] LABS: MAGNESIUM 1.8 mg/dl (1.7-2.5)
[2018-01-26 06:17] LABS: PHOSPHORUS 4.2 mg/dl (2.5-4.9)
[2018-01-26 06:40] LABS: ALANINE AMINOTRANSFERASE 117 IU/L (13-69); ALBUMIN 2.3 g/dl (3.3-4.9); ALBUMIN/GLOBULIN RATIO 0.82; ALKALINE PHOSPHATASE 106 IU/L (42-121); ANION GAP 12 (8-16); ASPARTATE AMINO TRANSFERASE 151 IU/L (15-46); BILIRUBIN,INDIRECT 0.2 mg/dl (0-1.1); BILIRUBIN,TOTAL 0.2 mg/dl (0.2-1.3); BLOOD UREA NITROGEN 34 mg/dl (7-20); CALCIUM 7.6 mg/dl (8.4-10.2); CARBON DIOXIDE 28 mmol/L (21-31); CHLORIDE 109 mmol/L (97-110); CREATININE 1.56 mg/dl (0.61-1.24); GLUCOSE 123 mg/dl (70-220); POTASSIUM 3.5 mmol/L (3.5-5.1); SODIUM 145 mmol/L (135-144); TOTAL PROTEIN 5.1 g/dl (6.1-8.1)
[2018-01-26] MEDS: INSULIN GLARGINE [LANtus] 3 ML PEN SC (08:30)
[2018-01-26] MEDS: BALSAM PERU/CASTOR OIL 60 GM TUBE TOP ×2 (08:31→20:29)
[2018-01-26] MEDS ORDERED: POTASSIUM CHLORIDE 50 ML IVPB (09:00)
[2018-01-26] MEDS: POTASSIUM CHLORIDE 100 ML IVPB ×2 (10:32→12:35)
[2018-01-26 11:05] LABS: SODIUM,URINE RANDOM 41 mmol/L (30-90)
[2018-01-26] MEDS: TPN 1,000 ML IV (12:23)
[2018-01-26] MEDS: SOD FERRIC GLUC COMPLX 125 MG in SOD CHLORIDE 0.9% 100 ML IVPB (17:17)
[2018-01-26] MEDS: EPOETIN 10000 UNITS/1 ML INJ (ESRD) SC (20:26)
[2018-01-26] MEDS: LORAZEPAM 2 MG INJ IV (22:20)
[2018-01-26] MEDS: HYDROmorphONE 1 MG/ML SYG IV (23:35)
[2018-01-27] MEDS: ACETYLCYSTEINE 20% 4 ML VIAL NEB ×4 (00:33→20:15)
[2018-01-27] MEDS: ALBUTEROL/IPRATROPIUM (NEB) 3 ML AMP HHN ×4 (00:33→20:15)
[2018-01-27] MEDS: INSULIN ASPART [NOVOLOG] 3 ML PEN SC ×6 (00:39→21:00)
[2018-01-27 02:10] LABS: AADO2 Arterial 445.2 mmHg (7.0-24.0); Allen Test ACCEPTAB; Arterial Base Excess 1.5 mmol/L (-3.0-3); Arterial Blood Gas Oxygen Sat 96.2 mmHG (95.0-98.0); Arterial COHb 0.3 % (0.0-3.0); Arterial Fraction of Oxyhgb 95.7 % (93.0-99.0); Arterial HCO3 26.1 mmol/L (22.0-26.0); Arterial MetHb 0.2 % (0.0-1.5); Arterial Total Hemglobin 8.4 g/dl (12.0-18.0); Arterial pCO2 40.9 mmhg (35-45); MODE MASK - SIMPLE; Site Left Radial
[2018-01-27] MEDS: ONDANSETRON INJ 8 MG in DEXTROSE 5% 50 ML IV ×3 (05:16→18:00)
[2018-01-27] MEDS: LEVOTHYROXINE 100 MCG VIAL IV (05:22)
[2018-01-27 05:46] LABS: ADD MAN DIFF? NO
[2018-01-27 06:05] LABS: WHITE BLOOD COUNT 6.4 10^3/ul (4.8-10.8)
[2018-01-27 06:05] LABS: BASOPHILS % 0.3 % (0.0-2.0); EOSINOPHILS # 0.3 10^3/ul (0.0-0.5); EOSINOPHILS % 3.9 % (0.0-7.0); HEMATOCRIT 24.1 % (42.0-52.0); HEMOGLOBIN 7.5 g/dl (14.0-18.0); LYMPHOCYTES # 0.9 10^3/ul (0.8-2.9); LYMPHOCYTES % 14.6 % (15.0-51.0); MEAN CORPUSCULAR HEMOGLOBIN 28.6 pg (29.0-33.0); MEAN CORPUSCULAR HGB CONC 31.1 g/dl (32.0-37.0); MEAN PLATELET VOLUME 10.1 fl (7.4-10.4); MONOCYTE # 0.7 10^3/ul (0.3-0.9); MONOCYTES % 10.7 % (0.0-11.0); NEUTROPHIL # 4.5 10^3/ul (1.6-7.5); NEUTROPHILS % 69.9 % (39.0-77.0); PLATELET COUNT 385 10^3/UL (140-415); RED BLOOD COUNT 2.62 10^6/ul (4.70-6.10); RED CELL DISTRIBUTION WIDTH 14.4 % (11.5-14.5)
[2018-01-27 06:59] LABS: ANION GAP 8 (8-16); BLOOD UREA NITROGEN 28 mg/dl (7-20); CALCIUM 7.5 mg/dl (8.4-10.2); CARBON DIOXIDE 30 mmol/L (21-31); CHLORIDE 109 mmol/L (97-110); GLUCOSE 130 mg/dl (70-220); MAGNESIUM 1.6 mg/dl (1.7-2.5); PHOSPHORUS 3.9 mg/dl (2.5-4.9); POTASSIUM 3.5 mmol/L (3.5-5.1); SODIUM 143 mmol/L (135-144)
[2018-01-27] MEDS: TPN 1,000 ML IV (07:23)
[2018-01-27] MEDS: BALSAM PERU/CASTOR OIL 60 GM TUBE TOP ×2 (08:27→21:26)
[2018-01-27] MEDS: INSULIN GLARGINE [LANtus] 3 ML PEN SC (08:31)
[2018-01-27] MEDS: MAGNESIUM SULFATE 2 GM/50 ML 50 ML IVPB (10:38)
[2018-01-27] MEDS: DEXTROSE 5% 1,000 ML IV (11:51)
[2018-01-27] MEDS: LORAZEPAM 2 MG INJ IV ×2 (11:51→18:54)
[2018-01-27] MEDS: SOD FERRIC GLUC COMPLX 125 MG in SOD CHLORIDE 0.9% 100 ML IVPB (16:52)
[2018-01-27] MEDS: HYDROmorphONE 1 MG/ML SYG IV ×2 (16:53→22:56)
[2018-01-28] MEDS: ONDANSETRON INJ 8 MG in DEXTROSE 5% 50 ML IV ×5 (00:24→23:11)
[2018-01-28] MEDS: ACETYLCYSTEINE 20% 4 ML VIAL NEB ×4 (01:20→19:26)
[2018-01-28] MEDS: ALBUTEROL/IPRATROPIUM (NEB) 3 ML AMP HHN ×4 (01:20→19:26)
[2018-01-28] MEDS: INSULIN ASPART [NOVOLOG] 3 ML PEN SC ×6 (02:50→20:28)
[2018-01-28] MEDS: TPN 1,000 ML IV ×2 (03:30→22:49)
[2018-01-28] MEDS: DEXTROSE 5% 1,000 ML IV ×3 (04:27→21:21)
[2018-01-28] MEDS: LEVOTHYROXINE 100 MCG VIAL IV (05:41)
[2018-01-28 06:19] LABS: ADD MAN DIFF? NO
[2018-01-28 06:28] LABS: BASOPHILS % 0.4 % (0.0-2.0); EOSINOPHILS # 0.2 10^3/ul (0.0-0.5); EOSINOPHILS % 4.2 % (0.0-7.0); HEMATOCRIT 25.5 % (42.0-52.0); HEMOGLOBIN 7.9 g/dl (14.0-18.0); LYMPHOCYTES # 0.9 10^3/ul (0.8-2.9); LYMPHOCYTES % 16.9 % (15.0-51.0); MEAN CORPUSCULAR HEMOGLOBIN 28.9 pg (29.0-33.0); MEAN CORPUSCULAR VOLUME 93.4 fl (82.0-101.0); MEAN PLATELET VOLUME 9.7 fl (7.4-10.4); MONOCYTE # 0.6 10^3/ul (0.3-0.9); MONOCYTES % 10.4 % (0.0-11.0); NEUTROPHIL # 3.5 10^3/ul (1.6-7.5); PLATELET COUNT 372 10^3/UL (140-415); RED BLOOD COUNT 2.73 10^6/ul (4.70-6.10); RED CELL DISTRIBUTION WIDTH 14.3 % (11.5-14.5)
[2018-01-28 06:28] LABS: WHITE BLOOD COUNT 5.3 10^3/ul (4.8-10.8)
[2018-01-28 07:11] LABS: MAGNESIUM 1.7 mg/dl (1.7-2.5)
[2018-01-28 07:25] LABS: ALANINE AMINOTRANSFERASE 134 IU/L (13-69); ALBUMIN 2.2 g/dl (3.3-4.9); ALBUMIN/GLOBULIN RATIO 0.73; ALKALINE PHOSPHATASE 107 IU/L (42-121); AMYLASE 95 U/L (11-123); ANION GAP 7 (8-16); ASPARTATE AMINO TRANSFERASE 152 IU/L (15-46); BILIRUBIN,INDIRECT 0.2 mg/dl (0-1.1); BILIRUBIN,TOTAL 0.2 mg/dl (0.2-1.3); BLOOD UREA NITROGEN 24 mg/dl (7-20); CALCIUM 7.5 mg/dl (8.4-10.2); CARBON DIOXIDE 29 mmol/L (21-31); CHLORIDE 108 mmol/L (97-110); CREATININE 1.14 mg/dl (0.61-1.24); GLUCOSE 114 mg/dl (70-220); LIPASE 623 U/L (23-300); POTASSIUM 4.1 mmol/L (3.5-5.1); SODIUM 140 mmol/L (135-144); TOTAL PROTEIN 5.2 g/dl (6.1-8.1)
[2018-01-28 07:47] LABS: PHOSPHORUS 3.8 mg/dl (2.5-4.9)
[2018-01-28 07:54] LABS: PREALBUMIN 8.2 mg/dl (17.6-36.0)
[2018-01-28] MEDS: BALSAM PERU/CASTOR OIL 60 GM TUBE TOP ×2 (08:13→20:25)
[2018-01-28] MEDS: INSULIN GLARGINE [LANtus] 3 ML PEN SC (08:16)
[2018-01-28] MEDS: HYDROmorphONE 1 MG/ML SYG IV ×4 (09:44→23:11)
[2018-01-28] MEDS: BARIUM SULFATE 135 ML (E-Z HD) PO (09:45)
[2018-01-28] MEDS: LORAZEPAM 2 MG INJ IV ×2 (12:21→18:05)
[2018-01-28] MEDS: SOD FERRIC GLUC COMPLX 125 MG in SOD CHLORIDE 0.9% 100 ML IVPB (16:49)
[2018-01-28] MEDS: EPOETIN 10000 UNITS/1 ML INJ (ESRD) SC (16:53)
[2018-01-29] MEDS: INSULIN ASPART [NOVOLOG] 3 ML PEN SC ×6 (00:53→20:26)
[2018-01-29] MEDS: ALBUTEROL/IPRATROPIUM (NEB) 3 ML AMP HHN ×4 (02:00→19:17)
[2018-01-29] MEDS: ACETYLCYSTEINE 20% 4 ML VIAL NEB ×4 (02:00→19:17)
[2018-01-29] MEDS: LEVOTHYROXINE 100 MCG VIAL IV (05:04)
[2018-01-29] MEDS: ONDANSETRON INJ 8 MG in DEXTROSE 5% 50 ML IV ×3 (05:05→17:10)
[2018-01-29] MEDS: HYDROmorphONE 1 MG/ML SYG IV ×6 (05:05→21:30)
[2018-01-29 06:10] LABS: ADD MAN DIFF? NO
[2018-01-29 06:19] LABS: WHITE BLOOD COUNT 4.8 10^3/ul (4.8-10.8)
[2018-01-29 06:19] LABS: BASOPHILS % 0.2 % (0.0-2.0); EOSINOPHILS # 0.2 10^3/ul (0.0-0.5); EOSINOPHILS % 4.6 % (0.0-7.0); HEMATOCRIT 25.6 % (42.0-52.0); LYMPHOCYTES # 0.9 10^3/ul (0.8-2.9); LYMPHOCYTES % 19.5 % (15.0-51.0); MEAN CORPUSCULAR HEMOGLOBIN 28.7 pg (29.0-33.0); MEAN CORPUSCULAR HGB CONC 31.3 g/dl (32.0-37.0); MEAN CORPUSCULAR VOLUME 91.8 fl (82.0-101.0); MEAN PLATELET VOLUME 9.7 fl (7.4-10.4); MONOCYTE # 0.5 10^3/ul (0.3-0.9); MONOCYTES % 11.2 % (0.0-11.0); NEUTROPHILS % 62.4 % (39.0-77.0); PLATELET COUNT 363 10^3/UL (140-415); RED BLOOD COUNT 2.79 10^6/ul (4.70-6.10); RED CELL DISTRIBUTION WIDTH 14.3 % (11.5-14.5)
[2018-01-29 06:59] LABS: ANION GAP 6 (8-16); BLOOD UREA NITROGEN 19 mg/dl (7-20); CALCIUM 7.5 mg/dl (8.4-10.2); CARBON DIOXIDE 31 mmol/L (21-31); CHLORIDE 105 mmol/L (97-110); CREATININE 1.08 mg/dl (0.61-1.24); GLUCOSE 110 mg/dl (70-220); MAGNESIUM 1.5 mg/dl (1.7-2.5); PHOSPHORUS 3.8 mg/dl (2.5-4.9); POTASSIUM 3.8 mmol/L (3.5-5.1); SODIUM 138 mmol/L (135-144)
[2018-01-29 07:13] LABS: ALANINE AMINOTRANSFERASE 127 IU/L (13-69); ALBUMIN 2.2 g/dl (3.3-4.9); ALKALINE PHOSPHATASE 109 IU/L (42-121); ASPARTATE AMINO TRANSFERASE 172 IU/L (15-46); BILIRUBIN,INDIRECT 0.1 mg/dl (0-1.1); BILIRUBIN,TOTAL 0.1 mg/dl (0.2-1.3); LIPASE 573 U/L (23-300); TOTAL PROTEIN 5.1 g/dl (6.1-8.1)
[2018-01-29] MEDS: INSULIN GLARGINE [LANtus] 3 ML PEN SC (08:21)
[2018-01-29] MEDS: BALSAM PERU/CASTOR OIL 60 GM TUBE TOP ×2 (08:22→20:22)
[2018-01-29 08:40] LABS: AADO2 Arterial 152.4 mmHg (7.0-24.0); Allen Test ACCEPTAB; Arterial Base Excess 4.2 mmol/L (-3.0-3); Arterial Blood Gas Oxygen Sat 92.6 mmHG (95.0-98.0); Arterial COHb 0.3 % (0.0-3.0); Arterial HCO3 29.7 mmol/L (22.0-26.0); Arterial MetHb 0.3 % (0.0-1.5); Arterial Total Hemglobin 11.4 g/dl (12.0-18.0); MODE NASAL CANNULA; Site Right Radial
[2018-01-29] MEDS: MAGNESIUM SULFATE 1 GM/D5W 100 ML IVPB (11:25)
[2018-01-29] MEDS: LORAZEPAM 2 MG INJ IV ×2 (13:40→22:21)
[2018-01-29] MEDS: DEXTROSE 5% 1,000 ML IV ×2 (13:53→16:10)
[2018-01-29] MEDS: SOD FERRIC GLUC COMPLX 125 MG in SOD CHLORIDE 0.9% 100 ML IVPB (16:15)
[2018-01-29] MEDS: TPN 1,000 ML IV (18:55)
[2018-01-30] MEDS: ONDANSETRON INJ 8 MG in DEXTROSE 5% 50 ML IV ×4 (00:18→17:33)
[2018-01-30] MEDS: ACETYLCYSTEINE 20% 4 ML VIAL NEB ×5 (01:00→20:28)
[2018-01-30] MEDS: ALBUTEROL/IPRATROPIUM (NEB) 3 ML AMP HHN ×4 (01:04→20:28)
[2018-01-30] MEDS: INSULIN ASPART [NOVOLOG] 3 ML PEN SC ×6 (01:18→21:00)
[2018-01-30] MEDS: HYDROmorphONE 1 MG/ML SYG IV ×6 (04:09→20:54)
[2018-01-30] MEDS: DEXTROSE 5% 1,000 ML IV ×2 (05:05→19:52)
[2018-01-30] MEDS: LEVOTHYROXINE 100 MCG VIAL IV (05:06)
[2018-01-30 06:04] LABS: ADD MAN DIFF? NO
[2018-01-30 06:08] LABS: BASOPHILS % 0.4 % (0.0-2.0); EOSINOPHILS # 0.2 10^3/ul (0.0-0.5); HEMATOCRIT 26.4 % (42.0-52.0); HEMOGLOBIN 8.2 g/dl (14.0-18.0); LYMPHOCYTES # 0.9 10^3/ul (0.8-2.9); MEAN CORPUSCULAR HGB CONC 31.1 g/dl (32.0-37.0); MEAN CORPUSCULAR VOLUME 93.3 fl (82.0-101.0); MEAN PLATELET VOLUME 9.5 fl (7.4-10.4); MONOCYTE # 0.5 10^3/ul (0.3-0.9); NEUTROPHIL # 3.6 10^3/ul (1.6-7.5); NEUTROPHILS % 68.6 % (39.0-77.0); PLATELET COUNT 372 10^3/UL (140-415); RED BLOOD COUNT 2.83 10^6/ul (4.70-6.10); RED CELL DISTRIBUTION WIDTH 14.3 % (11.5-14.5)
[2018-01-30 06:08] LABS: WHITE BLOOD COUNT 5.3 10^3/ul (4.8-10.8)
[2018-01-30 06:35] LABS: ANION GAP 9 (8-16); BLOOD UREA NITROGEN 16 mg/dl (7-20); CALCIUM 7.5 mg/dl (8.4-10.2); CARBON DIOXIDE 29 mmol/L (21-31); CHLORIDE 101 mmol/L (97-110); CREATININE 0.96 mg/dl (0.61-1.24); GLUCOSE 115 mg/dl (70-220); MAGNESIUM 1.6 mg/dl (1.7-2.5); POTASSIUM 3.7 mmol/L (3.5-5.1); SODIUM 135 mmol/L (135-144)
[2018-01-30 06:46] LABS: LIPASE 532 U/L (23-300)
[2018-01-30 06:50] LABS: ALANINE AMINOTRANSFERASE 147 IU/L (13-69); ALBUMIN 2.3 g/dl (3.3-4.9); ALKALINE PHOSPHATASE 121 IU/L (42-121); ASPARTATE AMINO TRANSFERASE 167 IU/L (15-46); BILIRUBIN,INDIRECT 0.2 mg/dl (0-1.1); BILIRUBIN,TOTAL 0.2 mg/dl (0.2-1.3); TOTAL PROTEIN 5.2 g/dl (6.1-8.1)
[2018-01-30] MEDS: TPN 1,000 ML IV ×2 (08:00→15:13)
[2018-01-30] MEDS: INSULIN GLARGINE [LANtus] 3 ML PEN SC (10:41)
[2018-01-30] MEDS: LORAZEPAM 2 MG INJ IV ×2 (11:52→22:39)
[2018-01-30] MEDS: BALSAM PERU/CASTOR OIL 60 GM TUBE TOP ×2 (11:52→20:54)
[2018-01-30] MEDS ORDERED: MAGNESIUM SULFATE 2 GM/50 ML 50 ML IVPB (12:00)
[2018-01-30] MEDS: MAGNESIUM SULFATE 1 GM/D5W 100 ML IVPB (12:01)
[2018-01-30] MEDS ORDERED: VITAMIN A & D 5 GM OINT PACKET TOP (22:29)
[2018-01-31] MEDS: ONDANSETRON INJ 8 MG in DEXTROSE 5% 50 ML IV ×4 (00:41→17:31)
[2018-01-31] MEDS: INSULIN ASPART [NOVOLOG] 3 ML PEN SC ×7 (00:45→20:48)
[2018-01-31] MEDS: ALBUTEROL/IPRATROPIUM (NEB) 3 ML AMP HHN ×4 (01:00→20:00)
[2018-01-31] MEDS: TPN 1,000 ML IV ×2 (04:00→13:17)
[2018-01-31] MEDS: HYDROmorphONE 1 MG/ML SYG IV ×4 (04:19→20:54)
[2018-01-31] MEDS: LEVOTHYROXINE 100 MCG VIAL IV (05:35)
[2018-01-31 07:30] LABS: ADD MAN DIFF? NO
[2018-01-31 07:43] LABS: BASOPHILS % 0.2 % (0.0-2.0); EOSINOPHILS # 0.2 10^3/ul (0.0-0.5); EOSINOPHILS % 3.2 % (0.0-7.0); HEMATOCRIT 27.2 % (42.0-52.0); HEMOGLOBIN 8.3 g/dl (14.0-18.0); LYMPHOCYTES % 16.1 % (15.0-51.0); MEAN CORPUSCULAR HEMOGLOBIN 28.4 pg (29.0-33.0); MEAN CORPUSCULAR HGB CONC 30.5 g/dl (32.0-37.0); MEAN CORPUSCULAR VOLUME 93.2 fl (82.0-101.0); MEAN PLATELET VOLUME 9.7 fl (7.4-10.4); MONOCYTE # 0.6 10^3/ul (0.3-0.9); MONOCYTES % 9.3 % (0.0-11.0); NEUTROPHIL # 4.3 10^3/ul (1.6-7.5); NEUTROPHILS % 68.5 % (39.0-77.0); PLATELET COUNT 346 10^3/UL (140-415); RED BLOOD COUNT 2.92 10^6/ul (4.70-6.10); RED CELL DISTRIBUTION WIDTH 14.6 % (11.5-14.5)
[2018-01-31 07:43] LABS: WHITE BLOOD COUNT 6.3 10^3/ul (4.8-10.8)
[2018-01-31] MEDS: INSULIN GLARGINE [LANtus] 3 ML PEN SC (07:52)
[2018-01-31] MEDS: BALSAM PERU/CASTOR OIL 60 GM TUBE TOP ×3 (07:56→20:52)
[2018-01-31] MEDS: ACETYLCYSTEINE 20% 4 ML VIAL NEB ×3 (08:00→20:00)
[2018-01-31 08:22] LABS: PHOSPHORUS 3.7 mg/dl (2.5-4.9)
[2018-01-31 08:25] LABS: ALANINE AMINOTRANSFERASE 144 IU/L (13-69); ALBUMIN 2.4 g/dl (3.3-4.9); ALBUMIN/GLOBULIN RATIO 0.82; ALKALINE PHOSPHATASE 129 IU/L (42-121); ANION GAP 6 (8-16); ASPARTATE AMINO TRANSFERASE 159 IU/L (15-46); BLOOD UREA NITROGEN 14 mg/dl (7-20); CALCIUM 7.8 mg/dl (8.4-10.2); CARBON DIOXIDE 32 mmol/L (21-31); CHLORIDE 102 mmol/L (97-110); GLUCOSE 122 mg/dl (70-220); MAGNESIUM 1.6 mg/dl (1.7-2.5); POTASSIUM 3.9 mmol/L (3.5-5.1); SODIUM 136 mmol/L (135-144); TOTAL PROTEIN 5.3 g/dl (6.1-8.1)
[2018-01-31 09:22] LABS: LIPASE 554 U/L (23-300)
[2018-01-31] MEDS: DEXTROSE 5% 1,000 ML IV (10:00)
[2018-01-31] MEDS: MAGNESIUM SULFATE 2 GM/50 ML 50 ML IVPB (10:02)
[2018-01-31] MEDS: LORAZEPAM 2 MG INJ IV ×2 (11:17→22:51)
[2018-01-31] MEDS: NEOMYC/POLYMYX/DEXAMETH OPH 5 ML BOTH EYES ×4 (11:30→20:53)
[2018-01-31] MEDS: BARIUM SULFATE 135 ML (E-Z HD) PO (16:35)
[2018-01-31] MEDS: SIMETH/SOD BICARB/CIT AC PKT (E-Z- GAS II) PO (16:35)
[2018-01-31] MEDS: EPOETIN 10000 UNITS/1 ML INJ (ESRD) SC (18:54)
[2018-02-01] MEDS: ONDANSETRON INJ 8 MG in DEXTROSE 5% 50 ML IV ×4 (00:26→17:26)
[2018-02-01] MEDS: INSULIN ASPART [NOVOLOG] 3 ML PEN SC ×6 (01:20→20:07)
[2018-02-01] MEDS: DEXTROSE 5% 1,000 ML IV ×2 (01:28→11:39)
[2018-02-01] MEDS: ACETYLCYSTEINE 20% 4 ML VIAL NEB ×4 (02:00→21:06)
[2018-02-01] MEDS: ALBUTEROL/IPRATROPIUM (NEB) 3 ML AMP HHN ×4 (02:00→21:06)
[2018-02-01] MEDS: HYDROmorphONE 1 MG/ML SYG IV ×3 (05:08→20:01)
[2018-02-01] MEDS: LEVOTHYROXINE 100 MCG VIAL IV (05:41)
[2018-02-01 06:06] LABS: ADD MAN DIFF? NO
[2018-02-01 06:22] LABS: WHITE BLOOD COUNT 5.1 10^3/ul (4.8-10.8)
[2018-02-01 06:22] LABS: BASOPHILS % 0.4 % (0.0-2.0); EOSINOPHILS # 0.2 10^3/ul (0.0-0.5); EOSINOPHILS % 3.2 % (0.0-7.0); HEMATOCRIT 25.4 % (42.0-52.0); HEMOGLOBIN 7.9 g/dl (14.0-18.0); LYMPHOCYTES # 1.2 10^3/ul (0.8-2.9); LYMPHOCYTES % 22.7 % (15.0-51.0); MEAN CORPUSCULAR HEMOGLOBIN 28.3 pg (29.0-33.0); MEAN CORPUSCULAR HGB CONC 31.1 g/dl (32.0-37.0); MEAN PLATELET VOLUME 9.6 fl (7.4-10.4); MONOCYTE # 0.6 10^3/ul (0.3-0.9); MONOCYTES % 11.9 % (0.0-11.0); NEUTROPHILS % 59.2 % (39.0-77.0); PLATELET COUNT 276 10^3/UL (140-415); RED BLOOD COUNT 2.79 10^6/ul (4.70-6.10); RED CELL DISTRIBUTION WIDTH 14.6 % (11.5-14.5)
[2018-02-01 06:45] LABS: ALANINE AMINOTRANSFERASE 148 IU/L (13-69); ALBUMIN 2.3 g/dl (3.3-4.9); ALBUMIN/GLOBULIN RATIO 0.82; ALKALINE PHOSPHATASE 124 IU/L (42-121); ANION GAP 9 (8-16); ASPARTATE AMINO TRANSFERASE 148 IU/L (15-46); BILIRUBIN,INDIRECT 0.2 mg/dl (0-1.1); BILIRUBIN,TOTAL 0.2 mg/dl (0.2-1.3); BLOOD UREA NITROGEN 12 mg/dl (7-20); CALCIUM 7.6 mg/dl (8.4-10.2); CARBON DIOXIDE 31 mmol/L (21-31); CHLORIDE 102 mmol/L (97-110); CREATININE 0.82 mg/dl (0.61-1.24); GLUCOSE 118 mg/dl (70-220); MAGNESIUM 1.7 mg/dl (1.7-2.5); POTASSIUM 3.7 mmol/L (3.5-5.1); SODIUM 138 mmol/L (135-144); TOTAL PROTEIN 5.1 g/dl (6.1-8.1)
[2018-02-01 07:55] LABS: LIPASE 437 U/L (23-300)
[2018-02-01] MEDS: NEOMYC/POLYMYX/DEXAMETH OPH 5 ML BOTH EYES ×4 (08:06→20:07)
[2018-02-01] MEDS: BALSAM PERU/CASTOR OIL 60 GM TUBE TOP ×2 (08:06→20:08)
[2018-02-01] MEDS: LORAZEPAM 2 MG INJ IV ×2 (08:06→16:06)
[2018-02-01] MEDS: TPN 1,000 ML IV ×2 (10:06)
[2018-02-01] MEDS: SIMETH/SOD BICARB/CIT AC PKT (E-Z- GAS II) PO (14:45)
[2018-02-01] MEDS: BARIUM SULFATE 135 ML (E-Z HD) PO (14:45)
[2018-02-02] MEDS: ONDANSETRON INJ 8 MG in DEXTROSE 5% 50 ML IV ×4 (00:15→17:45)
[2018-02-02] MEDS: DEXTROSE 5% 1,000 ML IV ×2 (00:15→17:24)
[2018-02-02] MEDS: HYDROmorphONE 1 MG/ML SYG IV ×5 (00:20→21:08)
[2018-02-02] MEDS: ALBUTEROL/IPRATROPIUM (NEB) 3 ML AMP HHN ×4 (01:19→20:27)
[2018-02-02] MEDS: ACETYLCYSTEINE 20% 4 ML VIAL NEB ×4 (01:19→20:27)
[2018-02-02] MEDS: INSULIN ASPART [NOVOLOG] 3 ML PEN SC ×6 (01:29→21:00)
[2018-02-02 05:46] LABS: ADD MAN DIFF? NO
[2018-02-02 05:56] LABS: BASOPHILS % 0.4 % (0.0-2.0); EOSINOPHILS # 0.2 10^3/ul (0.0-0.5); EOSINOPHILS % 3.2 % (0.0-7.0); HEMOGLOBIN 8.5 g/dl (14.0-18.0); LYMPHOCYTES # 1.5 10^3/ul (0.8-2.9); LYMPHOCYTES % 27.7 % (15.0-51.0); MEAN CORPUSCULAR HEMOGLOBIN 29.1 pg (29.0-33.0); MEAN CORPUSCULAR HGB CONC 31.5 g/dl (32.0-37.0); MEAN CORPUSCULAR VOLUME 92.5 fl (82.0-101.0); MEAN PLATELET VOLUME 9.5 fl (7.4-10.4); MONOCYTE # 0.6 10^3/ul (0.3-0.9); MONOCYTES % 10.8 % (0.0-11.0); NEUTROPHIL # 2.9 10^3/ul (1.6-7.5); NEUTROPHILS % 54.9 % (39.0-77.0); PLATELET COUNT 343 10^3/UL (140-415); RED BLOOD COUNT 2.92 10^6/ul (4.70-6.10); RED CELL DISTRIBUTION WIDTH 15.2 % (11.5-14.5)
[2018-02-02 05:56] LABS: WHITE BLOOD COUNT 5.4 10^3/ul (4.8-10.8)
[2018-02-02] MEDS: LEVOTHYROXINE 100 MCG VIAL IV (06:02)
[2018-02-02 06:42] LABS: ALANINE AMINOTRANSFERASE 130 IU/L (13-69); ALBUMIN 2.4 g/dl (3.3-4.9); ALKALINE PHOSPHATASE 121 IU/L (42-121); ANION GAP 8 (8-16); ASPARTATE AMINO TRANSFERASE 126 IU/L (15-46); BLOOD UREA NITROGEN 11 mg/dl (7-20); CALCIUM 7.8 mg/dl (8.4-10.2); CARBON DIOXIDE 33 mmol/L (21-31); CHLORIDE 101 mmol/L (97-110); CREATININE 0.89 mg/dl (0.61-1.24); GLUCOSE 129 mg/dl (70-220); MAGNESIUM 1.6 mg/dl (1.7-2.5); POTASSIUM 3.7 mmol/L (3.5-5.1); SODIUM 138 mmol/L (135-144); TOTAL PROTEIN 5.4 g/dl (6.1-8.1)
[2018-02-02] MEDS: LORAZEPAM 2 MG INJ IV ×2 (07:38→13:42)
[2018-02-02] MEDS: TPN 1,000 ML IV (07:58)
[2018-02-02] MEDS: INSULIN GLARGINE [LANtus] 3 ML PEN SC (08:49)
[2018-02-02] MEDS: NEOMYC/POLYMYX/DEXAMETH OPH 5 ML BOTH EYES ×4 (08:50→21:06)
[2018-02-02] MEDS: BALSAM PERU/CASTOR OIL 60 GM TUBE TOP ×2 (08:51→21:07)
[2018-02-02] MEDS: MAGNESIUM SULFATE 2 GM/50 ML 50 ML IVPB (11:12)
[2018-02-02 14:45] LABS: LIPASE 478 U/L (23-300)
[2018-02-02 15:14] LABS: PHOSPHORUS 3.8 mg/dl (2.5-4.9)
[2018-02-02] MEDS: EPOETIN 10000 UNITS/1 ML INJ (ESRD) SC (17:25)
[2018-02-03] MEDS: LORAZEPAM 2 MG INJ IV ×3 (00:48→15:04)
[2018-02-03] MEDS: ONDANSETRON INJ 8 MG in DEXTROSE 5% 50 ML IV ×4 (00:48→17:41)
[2018-02-03] MEDS: INSULIN ASPART [NOVOLOG] 3 ML PEN SC ×6 (01:00→20:52)
[2018-02-03] MEDS: ALBUTEROL/IPRATROPIUM (NEB) 3 ML AMP HHN ×4 (02:04→19:55)
[2018-02-03] MEDS: ACETYLCYSTEINE 20% 4 ML VIAL NEB ×4 (02:05→19:55)
[2018-02-03] MEDS: DEXTROSE 5% 1,000 ML IV ×3 (03:39→16:57)
[2018-02-03] MEDS: LEVOTHYROXINE 100 MCG VIAL IV (05:05)
[2018-02-03] MEDS: TPN 1,000 ML IV (05:05)
[2018-02-03 05:47] LABS: ADD MAN DIFF? NO
[2018-02-03 05:53] LABS: WHITE BLOOD COUNT 6.1 10^3/ul (4.8-10.8)
[2018-02-03 05:53] LABS: BASOPHILS % 0.3 % (0.0-2.0); EOSINOPHILS # 0.2 10^3/ul (0.0-0.5); EOSINOPHILS % 3.3 % (0.0-7.0); HEMATOCRIT 26.8 % (42.0-52.0); HEMOGLOBIN 8.5 g/dl (14.0-18.0); LYMPHOCYTES # 1.6 10^3/ul (0.8-2.9); LYMPHOCYTES % 25.8 % (15.0-51.0); MEAN CORPUSCULAR HEMOGLOBIN 28.8 pg (29.0-33.0); MEAN CORPUSCULAR HGB CONC 31.7 g/dl (32.0-37.0); MEAN CORPUSCULAR VOLUME 90.8 fl (82.0-101.0); MEAN PLATELET VOLUME 9.2 fl (7.4-10.4); MONOCYTE # 0.6 10^3/ul (0.3-0.9); MONOCYTES % 10.5 % (0.0-11.0); NEUTROPHIL # 3.5 10^3/ul (1.6-7.5); PLATELET COUNT 339 10^3/UL (140-415); RED BLOOD COUNT 2.95 10^6/ul (4.70-6.10); RED CELL DISTRIBUTION WIDTH 15.1 % (11.5-14.5)
[2018-02-03 06:21] LABS: LIPASE 498 U/L (23-300)
[2018-02-03 06:42] LABS: ALANINE AMINOTRANSFERASE 115 IU/L (13-69); ALBUMIN 2.4 g/dl (3.3-4.9); ALBUMIN/GLOBULIN RATIO 0.85; ALKALINE PHOSPHATASE 117 IU/L (42-121); ANION GAP 10 (8-16); ASPARTATE AMINO TRANSFERASE 103 IU/L (15-46); BILIRUBIN,INDIRECT 0.2 mg/dl (0-1.1); BILIRUBIN,TOTAL 0.2 mg/dl (0.2-1.3); BLOOD UREA NITROGEN 10 mg/dl (7-20); CALCIUM 7.7 mg/dl (8.4-10.2); CARBON DIOXIDE 31 mmol/L (21-31); CHLORIDE 100 mmol/L (97-110); CREATININE 0.86 mg/dl (0.61-1.24); GLUCOSE 125 mg/dl (70-220); MAGNESIUM 1.8 mg/dl (1.7-2.5); POTASSIUM 3.7 mmol/L (3.5-5.1); SODIUM 137 mmol/L (135-144); TOTAL PROTEIN 5.2 g/dl (6.1-8.1)
[2018-02-03] MEDS: HYDROmorphONE 1 MG/ML SYG IV ×7 (06:54→23:06)
[2018-02-03] MEDS: NEOMYC/POLYMYX/DEXAMETH OPH 5 ML BOTH EYES ×4 (08:46→20:32)
[2018-02-03] MEDS: BALSAM PERU/CASTOR OIL 60 GM TUBE TOP ×2 (08:47→20:32)
[2018-02-03] MEDS: INSULIN GLARGINE [LANTus] (100 UNITS/ML) SYG SC (09:12)
[2018-02-04] MEDS: ONDANSETRON INJ 8 MG in DEXTROSE 5% 50 ML IV ×5 (00:03→23:24)
[2018-02-04] MEDS: TPN 1,000 ML IV (00:04)
[2018-02-04] MEDS: HYDROmorphONE 1 MG/ML SYG IV ×9 (01:09→21:05)
[2018-02-04] MEDS: ALBUTEROL/IPRATROPIUM (NEB) 3 ML AMP HHN ×4 (01:13→20:20)
[2018-02-04] MEDS: ACETYLCYSTEINE 20% 4 ML VIAL NEB ×4 (01:13→20:20)
[2018-02-04] MEDS: ACCU-CHEK XX (02:00)
[2018-02-04 06:04] LABS: ADD MAN DIFF? NO
[2018-02-04 06:11] LABS: BASOPHILS % 0.5 % (0.0-2.0); EOSINOPHILS # 0.2 10^3/ul (0.0-0.5); EOSINOPHILS % 3.5 % (0.0-7.0); HEMATOCRIT 26.7 % (42.0-52.0); HEMOGLOBIN 8.3 g/dl (14.0-18.0); LYMPHOCYTES # 1.5 10^3/ul (0.8-2.9); LYMPHOCYTES % 25.6 % (15.0-51.0); MEAN CORPUSCULAR HEMOGLOBIN 28.7 pg (29.0-33.0); MEAN CORPUSCULAR HGB CONC 31.1 g/dl (32.0-37.0); MEAN CORPUSCULAR VOLUME 92.4 fl (82.0-101.0); MEAN PLATELET VOLUME 9.3 fl (7.4-10.4); MONOCYTE # 0.6 10^3/ul (0.3-0.9); MONOCYTES % 9.8 % (0.0-11.0); NEUTROPHIL # 3.3 10^3/ul (1.6-7.5); NEUTROPHILS % 57.8 % (39.0-77.0); PLATELET COUNT 317 10^3/UL (140-415); RED BLOOD COUNT 2.89 10^6/ul (4.70-6.10); RED CELL DISTRIBUTION WIDTH 15.4 % (11.5-14.5)
[2018-02-04 06:11] LABS: WHITE BLOOD COUNT 5.7 10^3/ul (4.8-10.8)
[2018-02-04] MEDS: LEVOTHYROXINE 100 MCG VIAL IV (06:27)
[2018-02-04] MEDS: DEXTROSE 5% 1,000 ML IV ×3 (06:42→23:35)
[2018-02-04] MEDS: LORAZEPAM 2 MG INJ IV ×2 (06:42→21:03)
[2018-02-04 06:53] LABS: LIPASE 437 U/L (23-300)
[2018-02-04 07:10] LABS: ALANINE AMINOTRANSFERASE 120 IU/L (13-69); ALBUMIN 2.4 g/dl (3.3-4.9); ALBUMIN/GLOBULIN RATIO 0.82; ALKALINE PHOSPHATASE 113 IU/L (42-121); ANION GAP 11 (8-16); ASPARTATE AMINO TRANSFERASE 107 IU/L (15-46); BILIRUBIN,INDIRECT 0.2 mg/dl (0-1.1); BILIRUBIN,TOTAL 0.2 mg/dl (0.2-1.3); BLOOD UREA NITROGEN 9 mg/dl (7-20); CALCIUM 7.8 mg/dl (8.4-10.2); CARBON DIOXIDE 30 mmol/L (21-31); CHLORIDE 100 mmol/L (97-110); CREATININE 0.81 mg/dl (0.61-1.24); GLUCOSE 105 mg/dl (70-220); MAGNESIUM 1.6 mg/dl (1.7-2.5); POTASSIUM 3.8 mmol/L (3.5-5.1); SODIUM 137 mmol/L (135-144); TOTAL PROTEIN 5.3 g/dl (6.1-8.1)
[2018-02-04 07:12] LABS: ANION GAP 11 (8-16); BLOOD UREA NITROGEN 9 mg/dl (7-20); CALCIUM 7.8 mg/dl (8.4-10.2); CARBON DIOXIDE 31 mmol/L (21-31); CHLORIDE 100 mmol/L (97-110); CREATININE 0.84 mg/dl (0.61-1.24); GLUCOSE 106 mg/dl (70-220); POTASSIUM 3.8 mmol/L (3.5-5.1); SODIUM 138 mmol/L (135-144)
[2018-02-04] MEDS: INSULIN ASPART [NOVOLOG] 3 ML PEN SC ×4 (08:05→21:00)
[2018-02-04] MEDS: INSULIN GLARGINE [LANTus] (100 UNITS/ML) SYG SC (08:06)
[2018-02-04] MEDS: BALSAM PERU/CASTOR OIL 60 GM TUBE TOP ×2 (08:06→21:00)
[2018-02-04] MEDS: NEOMYC/POLYMYX/DEXAMETH OPH 5 ML BOTH EYES ×4 (08:06→21:00)
[2018-02-04] MEDS ORDERED: HYDROCODONE/APAP (10/325) TAB PO (13:00)
[2018-02-04] MEDS ORDERED: HYDROCODONE/APAP (5/325) TAB PO (13:00)
[2018-02-04] MEDS: EPOETIN 10000 UNITS/1 ML INJ (ESRD) SC (17:20)
[2018-02-05] MEDS: HYDROmorphONE 1 MG/ML SYG IV ×7 (01:10→21:17)
[2018-02-05] MEDS: ALBUTEROL/IPRATROPIUM (NEB) 3 ML AMP HHN ×4 (01:40→19:38)
[2018-02-05] MEDS: ACETYLCYSTEINE 20% 4 ML VIAL NEB ×4 (01:41→19:49)
[2018-02-05] MEDS: ONDANSETRON INJ 8 MG in DEXTROSE 5% 50 ML IV ×3 (05:06→17:26)
[2018-02-05] MEDS: LEVOTHYROXINE 100 MCG VIAL IV (05:07)
[2018-02-05 05:52] LABS: ADD MAN DIFF? NO
[2018-02-05 05:55] LABS: BASOPHILS % 0.2 % (0.0-2.0); EOSINOPHILS # 0.1 10^3/ul (0.0-0.5); EOSINOPHILS % 2.3 % (0.0-7.0); HEMATOCRIT 27.5 % (42.0-52.0); HEMOGLOBIN 8.4 g/dl (14.0-18.0); LYMPHOCYTES # 1.5 10^3/ul (0.8-2.9); LYMPHOCYTES % 25.1 % (15.0-51.0); MEAN CORPUSCULAR HEMOGLOBIN 28.3 pg (29.0-33.0); MEAN CORPUSCULAR HGB CONC 30.5 g/dl (32.0-37.0); MEAN CORPUSCULAR VOLUME 92.6 fl (82.0-101.0); MEAN PLATELET VOLUME 9.4 fl (7.4-10.4); MONOCYTE # 0.6 10^3/ul (0.3-0.9); MONOCYTES % 9.3 % (0.0-11.0); NEUTROPHIL # 3.7 10^3/ul (1.6-7.5); NEUTROPHILS % 61.6 % (39.0-77.0); PLATELET COUNT 294 10^3/UL (140-415); RED BLOOD COUNT 2.97 10^6/ul (4.70-6.10); RED CELL DISTRIBUTION WIDTH 15.4 % (11.5-14.5)
[2018-02-05 07:27] LABS: ALANINE AMINOTRANSFERASE 103 IU/L (13-69); ALBUMIN 2.5 g/dl (3.3-4.9); ALBUMIN/GLOBULIN RATIO 0.83; ALKALINE PHOSPHATASE 123 IU/L (42-121); ANION GAP 7 (8-16); ASPARTATE AMINO TRANSFERASE 96 IU/L (15-46); BLOOD UREA NITROGEN 9 mg/dl (7-20); CARBON DIOXIDE 33 mmol/L (21-31); CHLORIDE 100 mmol/L (97-110); CREATININE 0.82 mg/dl (0.61-1.24); GLUCOSE 75 mg/dl (70-220); MAGNESIUM 1.5 mg/dl (1.7-2.5); POTASSIUM 4.1 mmol/L (3.5-5.1); SODIUM 136 mmol/L (135-144); TOTAL PROTEIN 5.5 g/dl (6.1-8.1)
[2018-02-05] MEDS: INSULIN ASPART [NOVOLOG] 3 ML PEN SC ×4 (07:49→21:00)
[2018-02-05] MEDS: INSULIN GLARGINE [LANTus] (100 UNITS/ML) SYG SC (07:53)
[2018-02-05] MEDS: DEXTROSE 5% 1,000 ML IV ×3 (07:54→21:51)
[2018-02-05] MEDS: BALSAM PERU/CASTOR OIL 60 GM TUBE TOP ×2 (07:54→21:17)
[2018-02-05] MEDS: NEOMYC/POLYMYX/DEXAMETH OPH 5 ML BOTH EYES ×4 (07:54→21:17)
[2018-02-05] MEDS: MAGNESIUM OXIDE 400 MG TAB PO (10:43)
[2018-02-05] MEDS: LORAZEPAM 2 MG INJ IV (21:17)
[2018-02-06] MEDS: ONDANSETRON INJ 8 MG in DEXTROSE 5% 50 ML IV ×4 (00:31→17:44)
[2018-02-06] MEDS: HYDROmorphONE 1 MG/ML SYG IV ×5 (01:23→20:43)
[2018-02-06] MEDS: ALBUTEROL/IPRATROPIUM (NEB) 3 ML AMP HHN ×4 (02:16→20:03)
[2018-02-06] MEDS: ACETYLCYSTEINE 20% 4 ML VIAL NEB ×4 (02:28→20:04)
[2018-02-06] MEDS: LEVOTHYROXINE 100 MCG VIAL IV (05:01)
[2018-02-06] MEDS: INSULIN ASPART [NOVOLOG] 3 ML PEN SC ×4 (08:15→20:32)
[2018-02-06] MEDS: NEOMYC/POLYMYX/DEXAMETH OPH 5 ML BOTH EYES ×4 (08:21→20:42)
[2018-02-06] MEDS: BALSAM PERU/CASTOR OIL 60 GM TUBE TOP ×2 (08:21→20:41)
[2018-02-06] MEDS: INSULIN GLARGINE [LANTus] (100 UNITS/ML) SYG SC (08:22)
[2018-02-06] MEDS ORDERED: HYDROmorphONE 1 MG/ML SYG IV (10:00)
[2018-02-06] MEDS: morphine (ER) 30 MG TAB PO ×2 (10:26→20:41)
[2018-02-06] MEDS: oxyCODONE 5 MG TAB PO (17:49)
[2018-02-06] MEDS: BUDESONIDE (NEB) 0.5MG/2ML AMP HHN (20:04)
[2018-02-07] MEDS: ONDANSETRON INJ 8 MG in DEXTROSE 5% 50 ML IV ×4 (00:59→17:48)
[2018-02-07] MEDS: ALBUTEROL/IPRATROPIUM (NEB) 3 ML AMP HHN ×4 (01:45→19:41)
[2018-02-07] MEDS: ACETYLCYSTEINE 20% 4 ML VIAL NEB ×4 (01:45→19:40)
[2018-02-07] MEDS: HYDROmorphONE 1 MG/ML SYG IV ×3 (05:14→21:07)
[2018-02-07 06:05] LABS: ADD MAN DIFF? NO
[2018-02-07 06:09] LABS: BASOPHILS % 0.8 % (0.0-2.0); EOSINOPHILS # 0.1 10^3/ul (0.0-0.5); EOSINOPHILS % 1.8 % (0.0-7.0); HEMATOCRIT 25.4 % (42.0-52.0); HEMOGLOBIN 7.9 g/dl (14.0-18.0); LYMPHOCYTES # 1.3 10^3/ul (0.8-2.9); LYMPHOCYTES % 26.3 % (15.0-51.0); MEAN CORPUSCULAR HGB CONC 31.1 g/dl (32.0-37.0); MEAN CORPUSCULAR VOLUME 93.4 fl (82.0-101.0); MEAN PLATELET VOLUME 9.5 fl (7.4-10.4); MONOCYTE # 0.6 10^3/ul (0.3-0.9); MONOCYTES % 11.6 % (0.0-11.0); NEUTROPHIL # 2.9 10^3/ul (1.6-7.5); NEUTROPHILS % 57.9 % (39.0-77.0); PLATELET COUNT 243 10^3/UL (140-415); RED BLOOD COUNT 2.72 10^6/ul (4.70-6.10); RED CELL DISTRIBUTION WIDTH 15.9 % (11.5-14.5)
[2018-02-07] MEDS: LEVOTHYROXINE 100 MCG TAB PO (06:10)
[2018-02-07 06:45] LABS: MAGNESIUM 1.3 mg/dl (1.7-2.5)
[2018-02-07 07:16] LABS: ALANINE AMINOTRANSFERASE 77 IU/L (13-69); ALBUMIN 2.2 g/dl (3.3-4.9); ALBUMIN/GLOBULIN RATIO 0.78; ALKALINE PHOSPHATASE 104 IU/L (42-121); ANION GAP 6 (8-16); ASPARTATE AMINO TRANSFERASE 65 IU/L (15-46); BLOOD UREA NITROGEN 6 mg/dl (7-20); CALCIUM 6.8 mg/dl (8.4-10.2); CARBON DIOXIDE 30 mmol/L (21-31); CHLORIDE 105 mmol/L (97-110); CREATININE 0.78 mg/dl (0.61-1.24); GLUCOSE 71 mg/dl (70-220); LIPASE 185 U/L (23-300); POTASSIUM 3.4 mmol/L (3.5-5.1); SODIUM 138 mmol/L (135-144)
[2018-02-07] MEDS: INSULIN ASPART [NOVOLOG] 3 ML PEN SC ×4 (08:15→20:15)
[2018-02-07] MEDS: NEOMYC/POLYMYX/DEXAMETH OPH 5 ML BOTH EYES ×4 (08:31→20:12)
[2018-02-07] MEDS: morphine (ER) 30 MG TAB PO ×2 (08:32→20:11)
[2018-02-07] MEDS: BALSAM PERU/CASTOR OIL 60 GM TUBE TOP ×2 (08:32→20:12)
[2018-02-07] MEDS: INSULIN GLARGINE [LANTus] (100 UNITS/ML) SYG SC (08:46)
[2018-02-07] MEDS ORDERED: POTASSIUM CHLORIDE 50 ML IVPB (10:30)
[2018-02-07] MEDS: BUDESONIDE (NEB) 0.5MG/2ML AMP HHN ×2 (10:34→20:41)
[2018-02-07] MEDS: MAGNESIUM OXIDE 400 MG TAB PO (12:28)
[2018-02-07] MEDS: POTASSIUM CHLORIDE 100 ML IVPB ×2 (12:35→15:34)
[2018-02-07] MEDS: EPOETIN 10000 UNITS/1 ML INJ (ESRD) SC (18:41)
[2018-02-07] MEDS: DOCUSATE SODIUM 100 MG CAP PO (20:11)
[2018-02-08] MEDS: ONDANSETRON INJ 8 MG in DEXTROSE 5% 50 ML IV ×2 (00:26→05:35)
[2018-02-08] MEDS: ALBUTEROL/IPRATROPIUM (NEB) 3 ML AMP HHN ×4 (01:37→20:16)
[2018-02-08] MEDS: ACETYLCYSTEINE 20% 4 ML VIAL NEB ×4 (01:37→20:16)
[2018-02-08] MEDS: LEVOTHYROXINE 100 MCG TAB PO (05:35)
[2018-02-08] MEDS: HYDROmorphONE 1 MG/ML SYG IV ×2 (05:36→13:03)
[2018-02-08 06:24] LABS: ADD MAN DIFF? NO
[2018-02-08 06:34] LABS: BASOPHILS % 0.3 % (0.0-2.0); EOSINOPHILS # 0.1 10^3/ul (0.0-0.5); EOSINOPHILS % 1.5 % (0.0-7.0); HEMATOCRIT 30.1 % (42.0-52.0); HEMOGLOBIN 9.1 g/dl (14.0-18.0); LYMPHOCYTES % 29.3 % (15.0-51.0); MEAN CORPUSCULAR HEMOGLOBIN 27.7 pg (29.0-33.0); MEAN CORPUSCULAR HGB CONC 30.2 g/dl (32.0-37.0); MEAN CORPUSCULAR VOLUME 91.8 fl (82.0-101.0); MEAN PLATELET VOLUME 9.8 fl (7.4-10.4); MONOCYTE # 0.7 10^3/ul (0.3-0.9); MONOCYTES % 9.9 % (0.0-11.0); NEUTROPHIL # 3.9 10^3/ul (1.6-7.5); NEUTROPHILS % 58.1 % (39.0-77.0); PLATELET COUNT 286 10^3/UL (140-415); RED BLOOD COUNT 3.28 10^6/ul (4.70-6.10); RED CELL DISTRIBUTION WIDTH 15.9 % (11.5-14.5)
[2018-02-08 06:34] LABS: WHITE BLOOD COUNT 6.8 10^3/ul (4.8-10.8)
[2018-02-08 07:05] LABS: ANION GAP 9 (8-16); BLOOD UREA NITROGEN 8 mg/dl (7-20); CARBON DIOXIDE 34 mmol/L (21-31); CHLORIDE 97 mmol/L (97-110); GLUCOSE 66 mg/dl (70-220); MAGNESIUM 1.6 mg/dl (1.7-2.5); PHOSPHORUS 4.4 mg/dl (2.5-4.9); POTASSIUM 4.5 mmol/L (3.5-5.1); SODIUM 135 mmol/L (135-144)
[2018-02-08] MEDS: BUDESONIDE (NEB) 0.5MG/2ML AMP HHN ×2 (07:44→20:16)
[2018-02-08] MEDS: INSULIN GLARGINE [LANTus] (100 UNITS/ML) SYG SC ×2 (08:00→08:42)
[2018-02-08] MEDS: INSULIN ASPART [NOVOLOG] 3 ML PEN SC ×4 (08:15→21:00)
[2018-02-08] MEDS: DOCUSATE SODIUM 100 MG CAP PO ×2 (08:34→21:24)
[2018-02-08] MEDS: morphine (ER) 30 MG TAB PO ×2 (08:34→21:25)
[2018-02-08] MEDS: NEOMYC/POLYMYX/DEXAMETH OPH 5 ML BOTH EYES ×4 (08:35→21:25)
[2018-02-08] MEDS: BALSAM PERU/CASTOR OIL 60 GM TUBE TOP ×2 (08:35→21:25)
[2018-02-08] MEDS: MAGNESIUM SULFATE 2 GM/50 ML 50 ML IVPB (10:26)
[2018-02-08] MEDS: FUROSEMIDE 40 MG INJ IV (12:24)
[2018-02-09] MEDS: ALBUTEROL/IPRATROPIUM (NEB) 3 ML AMP HHN ×4 (01:46→19:18)
[2018-02-09] MEDS: ACETYLCYSTEINE 20% 4 ML VIAL NEB ×4 (01:55→19:19)
[2018-02-09] MEDS: HYDROmorphONE 1 MG/ML SYG IV (05:54)
[2018-02-09] MEDS: LEVOTHYROXINE 100 MCG TAB PO (06:00)
[2018-02-09 06:21] LABS: ADD MAN DIFF? NO
[2018-02-09 06:29] LABS: WHITE BLOOD COUNT 7.1 10^3/ul (4.8-10.8)
[2018-02-09 06:29] LABS: BASOPHILS % 0.3 % (0.0-2.0); EOSINOPHILS # 0.2 10^3/ul (0.0-0.5); EOSINOPHILS % 2.1 % (0.0-7.0); HEMATOCRIT 28.7 % (42.0-52.0); HEMOGLOBIN 8.6 g/dl (14.0-18.0); LYMPHOCYTES # 2.1 10^3/ul (0.8-2.9); LYMPHOCYTES % 29.1 % (15.0-51.0); MEAN CORPUSCULAR HEMOGLOBIN 27.3 pg (29.0-33.0); MEAN CORPUSCULAR VOLUME 91.1 fl (82.0-101.0); MEAN PLATELET VOLUME 9.4 fl (7.4-10.4); MONOCYTE # 0.9 10^3/ul (0.3-0.9); MONOCYTES % 12.1 % (0.0-11.0); PLATELET COUNT 281 10^3/UL (140-415); RED BLOOD COUNT 3.15 10^6/ul (4.70-6.10); RED CELL DISTRIBUTION WIDTH 15.9 % (11.5-14.5)
[2018-02-09 07:01] LABS: ANION GAP 11 (8-16); BLOOD UREA NITROGEN 10 mg/dl (7-20); CALCIUM 7.9 mg/dl (8.4-10.2); CARBON DIOXIDE 36 mmol/L (21-31); CHLORIDE 94 mmol/L (97-110); GLUCOSE 57 mg/dl (70-220); MAGNESIUM 1.7 mg/dl (1.7-2.5); PHOSPHORUS 4.6 mg/dl (2.5-4.9); POTASSIUM 4.1 mmol/L (3.5-5.1); SODIUM 137 mmol/L (135-144)
[2018-02-09] MEDS: BUDESONIDE (NEB) 0.5MG/2ML AMP HHN ×2 (07:59→19:18)
[2018-02-09] MEDS: INSULIN ASPART [NOVOLOG] 3 ML PEN SC ×4 (08:15→20:09)
[2018-02-09] MEDS: NEOMYC/POLYMYX/DEXAMETH OPH 5 ML BOTH EYES ×4 (08:46→20:11)
[2018-02-09] MEDS: BALSAM PERU/CASTOR OIL 60 GM TUBE TOP ×2 (08:46→20:10)
[2018-02-09] MEDS: DEXTROSE 50% 50 ML SYRINGE IV ×2 (08:54→18:02)
[2018-02-09] MEDS: DOCUSATE SODIUM 100 MG CAP PO ×2 (09:00→20:18)
[2018-02-09] MEDS: morphine (ER) 30 MG TAB PO ×2 (09:00→20:18)
[2018-02-09] MEDS: DEXTROSE 5%-0.45% NACL 1,000 ML IV ×3 (10:00→22:29)
[2018-02-09] MEDS: INSULIN GLARGINE [LANTus] (100 UNITS/ML) SYG SC (10:04)
[2018-02-09] MEDS: FUROSEMIDE 40 MG INJ IV (13:17)
[2018-02-09] MEDS: HYDROmorphONE 0.5 MG/0.5 ML SYG IV ×3 (14:08→22:23)
[2018-02-09] MEDS: LACTULOSE 30ML CUP PO ×2 (17:00→17:53)
[2018-02-09] MEDS: EPOETIN 10000 UNITS/1 ML INJ (ESRD) SC (22:21)
[2018-02-10] MEDS: ACETYLCYSTEINE 20% 4 ML VIAL NEB ×4 (01:22→19:57)
[2018-02-10] MEDS: ALBUTEROL/IPRATROPIUM (NEB) 3 ML AMP HHN ×4 (01:23→19:57)
[2018-02-10] MEDS: HYDROmorphONE 0.5 MG/0.5 ML SYG IV ×6 (02:33→22:37)
[2018-02-10] MEDS: INSULIN ASPART [NOVOLOG] 3 ML PEN SC ×5 (05:00→21:00)
[2018-02-10] MEDS: LEVOTHYROXINE 100 MCG TAB PO (05:58)
[2018-02-10] MEDS: DEXTROSE 5%-0.45% NACL 1,000 ML IV (06:01)
[2018-02-10 06:49] LABS: ADD MAN DIFF? NO
[2018-02-10 06:51] LABS: BASOPHILS % 0.4 % (0.0-2.0); EOSINOPHILS # 0.1 10^3/ul (0.0-0.5); EOSINOPHILS % 1.8 % (0.0-7.0); HEMOGLOBIN 8.6 g/dl (14.0-18.0); LYMPHOCYTES # 1.5 10^3/ul (0.8-2.9); LYMPHOCYTES % 26.8 % (15.0-51.0); MEAN CORPUSCULAR HGB CONC 29.7 g/dl (32.0-37.0); MEAN CORPUSCULAR VOLUME 91.2 fl (82.0-101.0); MEAN PLATELET VOLUME 9.7 fl (7.4-10.4); MONOCYTE # 0.7 10^3/ul (0.3-0.9); MONOCYTES % 12.6 % (0.0-11.0); NEUTROPHIL # 3.2 10^3/ul (1.6-7.5); NEUTROPHILS % 57.9 % (39.0-77.0); PLATELET COUNT 294 10^3/UL (140-415); RED BLOOD COUNT 3.18 10^6/ul (4.70-6.10); RED CELL DISTRIBUTION WIDTH 15.8 % (11.5-14.5)
[2018-02-10 06:51] LABS: WHITE BLOOD COUNT 5.6 10^3/ul (4.8-10.8)
[2018-02-10 07:17] LABS: LIPASE 94 U/L (23-300)
[2018-02-10 07:23] LABS: ANION GAP 8 (8-16); BLOOD UREA NITROGEN 8 mg/dl (7-20); CALCIUM 7.6 mg/dl (8.4-10.2); CARBON DIOXIDE 37 mmol/L (21-31); CHLORIDE 95 mmol/L (97-110); CREATININE 0.77 mg/dl (0.61-1.24); GLUCOSE 76 mg/dl (70-220); MAGNESIUM 1.7 mg/dl (1.7-2.5); POTASSIUM 3.7 mmol/L (3.5-5.1); SODIUM 136 mmol/L (135-144)
[2018-02-10] MEDS: morphine (ER) 30 MG TAB PO ×2 (08:40→21:18)
[2018-02-10] MEDS: DOCUSATE SODIUM 100 MG CAP PO ×2 (08:40→21:00)
[2018-02-10] MEDS: NEOMYC/POLYMYX/DEXAMETH OPH 5 ML BOTH EYES ×4 (08:41→21:00)
[2018-02-10] MEDS: FUROSEMIDE 40 MG INJ IV (08:41)
[2018-02-10] MEDS: LACTULOSE 30ML CUP PO (08:41)
[2018-02-10] MEDS: BALSAM PERU/CASTOR OIL 60 GM TUBE TOP ×2 (08:41→21:00)
[2018-02-10] MEDS: INSULIN GLARGINE [LANTus] (100 UNITS/ML) SYG SC (08:48)
[2018-02-10] MEDS: BUDESONIDE (NEB) 0.5MG/2ML AMP HHN ×2 (08:52→19:57)
[2018-02-10] MEDS: BISACODYL (EC) 5 MG TAB PO (12:39)
[2018-02-10] MEDS: POLYETHYLENE GLYCOL 17 GM PACKET PO (12:40)
[2018-02-11] MEDS: ALBUTEROL/IPRATROPIUM (NEB) 3 ML AMP HHN ×4 (01:05→20:16)
[2018-02-11] MEDS: ACETYLCYSTEINE 20% 4 ML VIAL NEB ×4 (01:05→20:16)
[2018-02-11] MEDS: HYDROmorphONE 0.5 MG/0.5 ML SYG IV ×3 (04:41→14:32)
[2018-02-11 05:57] LABS: ADD MAN DIFF? NO
[2018-02-11 06:08] LABS: WHITE BLOOD COUNT 6.8 10^3/ul (4.8-10.8)
[2018-02-11 06:08] LABS: BASOPHILS % 0.6 % (0.0-2.0); EOSINOPHILS # 0.1 10^3/ul (0.0-0.5); EOSINOPHILS % 1.8 % (0.0-7.0); HEMATOCRIT 30.9 % (42.0-52.0); HEMOGLOBIN 9.3 g/dl (14.0-18.0); LYMPHOCYTES % 29.6 % (15.0-51.0); MEAN CORPUSCULAR HEMOGLOBIN 27.2 pg (29.0-33.0); MEAN CORPUSCULAR HGB CONC 30.1 g/dl (32.0-37.0); MEAN CORPUSCULAR VOLUME 90.4 fl (82.0-101.0); MEAN PLATELET VOLUME 9.6 fl (7.4-10.4); MONOCYTE # 0.8 10^3/ul (0.3-0.9); MONOCYTES % 12.4 % (0.0-11.0); NEUTROPHIL # 3.7 10^3/ul (1.6-7.5); NEUTROPHILS % 54.6 % (39.0-77.0); PLATELET COUNT 320 10^3/UL (140-415); RED BLOOD COUNT 3.42 10^6/ul (4.70-6.10); RED CELL DISTRIBUTION WIDTH 15.8 % (11.5-14.5)
[2018-02-11 06:35] LABS: ANION GAP 7 (8-16); BLOOD UREA NITROGEN 7 mg/dl (7-20); CHLORIDE 92 mmol/L (97-110); CREATININE 0.82 mg/dl (0.61-1.24); GLUCOSE 63 mg/dl (70-220); MAGNESIUM 1.6 mg/dl (1.7-2.5); PHOSPHORUS 4.1 mg/dl (2.5-4.9); SODIUM 135 mmol/L (135-144)
[2018-02-11] MEDS: LEVOTHYROXINE 100 MCG TAB PO (06:36)
[2018-02-11] MEDS: ALTEPLASE (CATHFLO) 2 MG INJ CATHETER (06:40)
[2018-02-11 07:08] LABS: CARBON DIOXIDE 40 mmol/L (21-31)
[2018-02-11] MEDS: INSULIN ASPART [NOVOLOG] 3 ML PEN SC ×4 (08:15→20:56)
[2018-02-11] MEDS: BUDESONIDE (NEB) 0.5MG/2ML AMP HHN ×2 (08:26→20:00)
[2018-02-11] MEDS: DOCUSATE SODIUM 100 MG CAP PO ×2 (08:59→20:52)
[2018-02-11] MEDS: NEOMYC/POLYMYX/DEXAMETH OPH 5 ML BOTH EYES ×4 (08:59→20:56)
[2018-02-11] MEDS: morphine (ER) 30 MG TAB PO ×2 (08:59→20:52)
[2018-02-11] MEDS: LACTULOSE 30ML CUP PO (08:59)
[2018-02-11] MEDS: BISACODYL (EC) 5 MG TAB PO (09:00)
[2018-02-11] MEDS: INSULIN GLARGINE [LANTus] (100 UNITS/ML) SYG SC (09:10)
[2018-02-11] MEDS: BALSAM PERU/CASTOR OIL 60 GM TUBE TOP ×2 (09:11→20:57)
[2018-02-11] MEDS: FUROSEMIDE 20 MG INJ IV (09:11)
[2018-02-11] MEDS: MAGNESIUM SULFATE 2 GM/50 ML 50 ML IVPB (11:48)
[2018-02-11] MEDS: oxyCODONE 5 MG TAB PO ×2 (18:27→22:36)
[2018-02-11] MEDS: ONDANSETRON 4 MG INJ IV (18:27)
[2018-02-11] MEDS: EPOETIN 10000 UNITS/1 ML INJ (ESRD) SC (19:28)
[2018-02-11] MEDS: GLUCOSE GEL 15 GRAM TUBE BUCCAL (21:58)
[2018-02-12] MEDS: HYDROmorphONE 0.5 MG/0.5 ML SYG IV ×2 (00:34→11:04)
[2018-02-12] MEDS: ALBUTEROL/IPRATROPIUM (NEB) 3 ML AMP HHN ×4 (02:20→20:34)
[2018-02-12] MEDS: ACETYLCYSTEINE 20% 4 ML VIAL NEB ×4 (02:20→20:34)
[2018-02-12] MEDS ORDERED: NALOXONE (0.4 MG/ML) INJ (04:34)
[2018-02-12] MEDS: NALOXONE (0.4 MG/ML) INJ IV (04:40)
[2018-02-12 05:15] LABS: AADO2 Arterial 355.4 mmHg (7.0-24.0); Arterial Blood Gas Oxygen Sat 96.2 mmHG (95.0-98.0); Arterial COHb 0.5 % (0.0-3.0); Arterial Fraction of Oxyhgb 95.4 % (93.0-99.0); Arterial HCO3 33.9 mmol/L (22.0-26.0); Arterial MetHb 0.3 % (0.0-1.5); Arterial Total Hemglobin 11.5 g/dl (12.0-18.0); Arterial pCO2 48.1 mmhg (35-45); MODE MASK - SIMPLE; Site LB
[2018-02-12 06:54] LABS: ADD MAN DIFF? NO
[2018-02-12] MEDS: LEVOTHYROXINE 100 MCG TAB PO (06:54)
[2018-02-12 07:04] LABS: WHITE BLOOD COUNT 8.4 10^3/ul (4.8-10.8)
[2018-02-12 07:04] LABS: BASOPHILS % 0.4 % (0.0-2.0); EOSINOPHILS # 0.1 10^3/ul (0.0-0.5); EOSINOPHILS % 0.7 % (0.0-7.0); HEMOGLOBIN 9.9 g/dl (14.0-18.0); LYMPHOCYTES # 1.3 10^3/ul (0.8-2.9); LYMPHOCYTES % 15.4 % (15.0-51.0); MEAN CORPUSCULAR HEMOGLOBIN 27.8 pg (29.0-33.0); MEAN CORPUSCULAR HGB CONC 30.9 g/dl (32.0-37.0); MEAN CORPUSCULAR VOLUME 89.9 fl (82.0-101.0); MEAN PLATELET VOLUME 9.5 fl (7.4-10.4); MONOCYTE # 0.8 10^3/ul (0.3-0.9); MONOCYTES % 9.9 % (0.0-11.0); NEUTROPHIL # 6.1 10^3/ul (1.6-7.5); NEUTROPHILS % 72.4 % (39.0-77.0); PLATELET COUNT 338 10^3/UL (140-415); RED BLOOD COUNT 3.56 10^6/ul (4.70-6.10); RED CELL DISTRIBUTION WIDTH 15.8 % (11.5-14.5)
[2018-02-12 07:21] LABS: ALANINE AMINOTRANSFERASE 68 IU/L (13-69); ALBUMIN 2.9 g/dl (3.3-4.9); ALBUMIN/GLOBULIN RATIO 0.96; ALKALINE PHOSPHATASE 122 IU/L (42-121); ANION GAP 11 (8-16); ASPARTATE AMINO TRANSFERASE 72 IU/L (15-46); BILIRUBIN,INDIRECT 0.4 mg/dl (0-1.1); BILIRUBIN,TOTAL 0.4 mg/dl (0.2-1.3); BLOOD UREA NITROGEN 8 mg/dl (7-20); CALCIUM 7.8 mg/dl (8.4-10.2); CARBON DIOXIDE 36 mmol/L (21-31); CHLORIDE 90 mmol/L (97-110); CREATININE 0.89 mg/dl (0.61-1.24); GLUCOSE 91 mg/dl (70-220); SODIUM 133 mmol/L (135-144); TOTAL PROTEIN 5.9 g/dl (6.1-8.1)
[2018-02-12 07:24] LABS: PHOSPHORUS 4.5 mg/dl (2.5-4.9)
[2018-02-12 07:24] LABS: MAGNESIUM 1.7 mg/dl (1.7-2.5)
[2018-02-12] MEDS: INSULIN ASPART [NOVOLOG] 3 ML PEN SC ×4 (07:52→20:20)
[2018-02-12] MEDS: BUDESONIDE (NEB) 0.5MG/2ML AMP HHN ×2 (08:09→20:34)
[2018-02-12] MEDS: NEOMYC/POLYMYX/DEXAMETH OPH 5 ML BOTH EYES ×4 (08:36→22:32)
[2018-02-12] MEDS: DOCUSATE SODIUM 100 MG CAP PO ×2 (08:44→20:15)
[2018-02-12] MEDS: LACTULOSE 30ML CUP PO (08:44)
[2018-02-12] MEDS: morphine (ER) 30 MG TAB PO ×2 (08:44→20:15)
[2018-02-12] MEDS: BISACODYL (EC) 5 MG TAB PO (08:44)
[2018-02-12] MEDS: FUROSEMIDE 20 MG INJ IV (08:45)
[2018-02-12] MEDS: INSULIN GLARGINE [LANTus] (100 UNITS/ML) SYG SC (08:49)
[2018-02-12] MEDS: BALSAM PERU/CASTOR OIL 60 GM TUBE TOP ×4 (09:00→20:25)
[2018-02-12] MEDS ORDERED: HYDROmorphONE 0.5 MG/0.5 ML SYG IV (13:00)
[2018-02-12] MEDS: oxyCODONE 5 MG TAB PO (15:54)
[2018-02-12] MEDS: METOCLOPRAMIDE 10 MG INJ IV (17:19)
[2018-02-13] MEDS: METOCLOPRAMIDE 10 MG INJ IV ×5 (00:46→18:39)
[2018-02-13] MEDS: ACETAMINOPHEN 325 MG TAB PO ×2 (00:52→08:55)
[2018-02-13] MEDS: ACETYLCYSTEINE 20% 4 ML VIAL NEB ×2 (01:55→09:13)
[2018-02-13] MEDS: ALBUTEROL/IPRATROPIUM (NEB) 3 ML AMP HHN ×4 (01:55→21:11)
[2018-02-13] MEDS: LEVOTHYROXINE 100 MCG TAB PO (05:09)
[2018-02-13] MEDS: FUROSEMIDE 20 MG TAB PO (05:12)
[2018-02-13] MEDS: INSULIN ASPART [NOVOLOG] 3 ML PEN SC ×4 (07:54→20:47)
[2018-02-13] MEDS: BALSAM PERU/CASTOR OIL 60 GM TUBE TOP ×2 (08:22→20:46)
[2018-02-13] MEDS: NEOMYC/POLYMYX/DEXAMETH OPH 5 ML BOTH EYES ×5 (08:24→21:00)
[2018-02-13] MEDS: DOCUSATE SODIUM 100 MG CAP PO ×2 (08:24→20:52)
[2018-02-13] MEDS: BISACODYL (EC) 5 MG TAB PO ×2 (08:27→12:30)
[2018-02-13] MEDS: LACTULOSE 30ML CUP PO (08:28)
[2018-02-13] MEDS: morphine (ER) 30 MG TAB PO ×3 (08:28→21:37)
[2018-02-13 09:08] LABS: ADD MAN DIFF? NO
[2018-02-13] MEDS: BUDESONIDE (NEB) 0.5MG/2ML AMP HHN ×2 (09:20→21:02)
[2018-02-13 09:25] LABS: BASOPHILS % 0.6 % (0.0-2.0); EOSINOPHILS # 0.2 10^3/ul (0.0-0.5); EOSINOPHILS % 2.3 % (0.0-7.0); HEMATOCRIT 29.9 % (42.0-52.0); HEMOGLOBIN 9.2 g/dl (14.0-18.0); LYMPHOCYTES # 2.2 10^3/ul (0.8-2.9); MEAN CORPUSCULAR HEMOGLOBIN 27.4 pg (29.0-33.0); MEAN CORPUSCULAR HGB CONC 30.8 g/dl (32.0-37.0); MEAN PLATELET VOLUME 9.4 fl (7.4-10.4); MONOCYTE # 0.9 10^3/ul (0.3-0.9); MONOCYTES % 12.3 % (0.0-11.0); NEUTROPHIL # 3.6 10^3/ul (1.6-7.5); NEUTROPHILS % 51.5 % (39.0-77.0); PLATELET COUNT 321 10^3/UL (140-415); RED BLOOD COUNT 3.36 10^6/ul (4.70-6.10); RED CELL DISTRIBUTION WIDTH 15.8 % (11.5-14.5)
[2018-02-13 09:50] LABS: ANION GAP 8 (8-16); BLOOD UREA NITROGEN 9 mg/dl (7-20); CALCIUM 8.1 mg/dl (8.4-10.2); CHLORIDE 91 mmol/L (97-110); CREATININE 0.81 mg/dl (0.61-1.24); GLUCOSE 67 mg/dl (70-220); MAGNESIUM 1.8 mg/dl (1.7-2.5); PHOSPHORUS 4.1 mg/dl (2.5-4.9); POTASSIUM 3.7 mmol/L (3.5-5.1); SODIUM 135 mmol/L (135-144)
[2018-02-13 09:56] LABS: CARBON DIOXIDE 40 mmol/L (21-31)
[2018-02-13] MEDS: INSULIN GLARGINE [LANTus] (100 UNITS/ML) SYG SC (12:32)
[2018-02-14] MEDS: METOCLOPRAMIDE 10 MG INJ IV ×3 (00:46→12:28)
[2018-02-14] MEDS: ALBUTEROL/IPRATROPIUM (NEB) 3 ML AMP HHN ×3 (02:06→13:20)
[2018-02-14] MEDS: ACETAMINOPHEN 325 MG TAB PO ×3 (04:13→16:22)
[2018-02-14] MEDS: LEVOTHYROXINE 100 MCG TAB PO (05:20)
[2018-02-14] MEDS: FUROSEMIDE 20 MG TAB PO (05:21)
[2018-02-14] MEDS: INSULIN ASPART [NOVOLOG] 3 ML PEN SC ×3 (07:55→17:17)
[2018-02-14] MEDS: INSULIN GLARGINE [LANTus] (100 UNITS/ML) SYG SC (08:47)
[2018-02-14] MEDS: DOCUSATE SODIUM 100 MG CAP PO (08:50)
[2018-02-14] MEDS: LACTULOSE 30ML CUP PO (08:51)
[2018-02-14] MEDS: BALSAM PERU/CASTOR OIL 60 GM TUBE TOP (08:52)
[2018-02-14] MEDS: morphine (ER) 30 MG TAB PO (09:00)
[2018-02-14] MEDS: NEOMYC/POLYMYX/DEXAMETH OPH 5 ML BOTH EYES ×3 (09:00→17:00)
[2018-02-14 10:11] LABS: ADD MAN DIFF? NO
[2018-02-14 10:13] LABS: WHITE BLOOD COUNT 6.2 10^3/ul (4.8-10.8)
[2018-02-14 10:13] LABS: BASOPHILS % 0.3 % (0.0-2.0); EOSINOPHILS # 0.1 10^3/ul (0.0-0.5); HEMATOCRIT 30.7 % (42.0-52.0); HEMOGLOBIN 9.4 g/dl (14.0-18.0); LYMPHOCYTES # 1.6 10^3/ul (0.8-2.9); LYMPHOCYTES % 26.7 % (15.0-51.0); MEAN CORPUSCULAR HEMOGLOBIN 27.4 pg (29.0-33.0); MEAN CORPUSCULAR HGB CONC 30.6 g/dl (32.0-37.0); MEAN CORPUSCULAR VOLUME 89.5 fl (82.0-101.0); MEAN PLATELET VOLUME 9.2 fl (7.4-10.4); MONOCYTE # 0.6 10^3/ul (0.3-0.9); MONOCYTES % 9.6 % (0.0-11.0); NEUTROPHIL # 3.7 10^3/ul (1.6-7.5); NEUTROPHILS % 60.4 % (39.0-77.0); PLATELET COUNT 331 10^3/UL (140-415); RED BLOOD COUNT 3.43 10^6/ul (4.70-6.10); RED CELL DISTRIBUTION WIDTH 15.9 % (11.5-14.5)
[2018-02-14 10:42] LABS: ALBUMIN 2.8 g/dl (3.3-4.9); ANION GAP 9 (8-16); BLOOD UREA NITROGEN 10 mg/dl (7-20); CALCIUM 7.8 mg/dl (8.4-10.2); CARBON DIOXIDE 35 mmol/L (21-31); CHLORIDE 94 mmol/L (97-110); GLUCOSE 126 mg/dl (70-220); MAGNESIUM 1.6 mg/dl (1.7-2.5); PHOSPHORUS 3.4 mg/dl (2.5-4.9); POTASSIUM 3.4 mmol/L (3.5-5.1); SODIUM 135 mmol/L (135-144)
[2018-02-14] MEDS: POTASSIUM CHLORIDE (SR) 20 MEQ TAB PO (12:28)
[2018-02-14] MEDS: BUDESONIDE (NEB) 0.5MG/2ML AMP HHN (13:20)
[2018-02-14] MEDS: MAGNESIUM OXIDE 400 MG TAB PO (16:19)
[2018-02-14] MEDS: LORAZEPAM 1 MG TAB PO (16:36)
[2018-02-14] MEDS: EPOETIN 10000 UNITS/1 ML INJ (ESRD) SC (17:17)
== END 2018-02-14 17:53 | DRG 871 ==
LOC: TEL 01-07 00:14 → MS2 01-27 22:56 → TEL 02-12 05:40 → ICU 01-09 09:43 → TEL 02-13 11:02 → E/R 18:23 → MS2 01-24 23:20 → MS1 21:33
PROC: 02HV33Z Insertion of Infusion Device into Superior Vena Cava, Percutaneous Approach (ICD-10-PCS; principal; 2018-01-11 18:00)
PROC: 5A09457 Assistance with Respiratory Ventilation, 24-96 Consecutive Hours, Continuous Positive Airway Pressure (ICD-10-PCS; 2018-01-11 18:00)
PROC: 0DJ08ZZ Inspection of Upper Intestinal Tract, Via Natural or Artificial Opening Endoscopic (ICD-10-PCS; 2018-01-11 18:00)
DX: A41.9 Sepsis, unspecified organism (principal); K85.10 Biliary acute pancreatitis without necrosis or infection; J96.01 Acute respiratory failure with hypoxia; K22.6 Gastro-esophageal laceration-hemorrhage syndrome; N17.0 Acute kidney failure with tubular necrosis; G92 Toxic encephalopathy; E87.2 Acidosis; K86.3 Pseudocyst of pancreas; K56.7 Ileus, unspecified; E87.0 Hyperosmolality and hypernatremia; E44.1 Mild protein-calorie malnutrition; J98.11 Atelectasis; I10 Essential (primary) hypertension; E03.9 Hypothyroidism, unspecified; K59.09 Other constipation; E66.9 Obesity, unspecified; E83.51 Hypocalcemia; K80.70 Calculus of gallbladder and bile duct without cholecystitis without obstruction; R65.20 Severe sepsis without septic shock; Z86.73 Personal history of transient ischemic attack (TIA), and cerebral infarction without residual deficits; Z85.89 Personal history of malignant neoplasm of other organs and systems; Z68.32 Body mass index [BMI] 32.0-32.9, adult; Z87.891 Personal history of nicotine dependence
CPT/HCPCS: 36415; 36569; 36600; 71045; 71275; 74018; 74176; 74177; 74181; 74230; 76604; 76705; 76856; 76937; 80048; 80053; 80061; 80069; 80076; 80307; 81001; 81003; 82140; 82150; 82330; 82550; 82553; 82570; 82728; 82787; 82803; 82947; 82962; 83036; 83540; 83605; 83690; 83735; 84100; 84132; 84134; 84155; 84300; 84439; 84443; 84478; 84481; 84484; 85025; 85610; 85730; 86803; 87040; 87075; 87081; 87086; 87340; 92507; 92523; 92526; 92610; 92611; 93005; 93306; 94640; 94660; 94664; 94668; 96361; 96374; 96375; 97110; 97163; 97164; 97530; 99285-25

== ENCOUNTER 2018-05-28 17:18 | Inpatient (IN) | payer OTHER ==
[2018-05-28] MEDS: SODIUM CHLORIDE 0.9% 1L BAG IV* (17:52)
[2018-05-28 18:04] LABS: ADD MAN DIFF? NO
[2018-05-28 18:14] LABS: BASOPHILS % 0.3 % (0.0-2.0); EOSINOPHILS # 0.2 10^3/ul (0.0-0.5); EOSINOPHILS % 2.1 % (0.0-7.0); HEMATOCRIT 42.2 % (42.0-52.0); LYMPHOCYTES # 2.2 10^3/ul (0.8-2.9); LYMPHOCYTES % 22.1 % (15.0-51.0); MEAN CORPUSCULAR HEMOGLOBIN 27.9 pg (29.0-33.0); MEAN CORPUSCULAR HGB CONC 33.2 g/dl (32.0-37.0); MEAN CORPUSCULAR VOLUME 84.2 fl (82.0-101.0); MEAN PLATELET VOLUME 9.6 fl (7.4-10.4); MONOCYTE # 0.9 10^3/ul (0.3-0.9); MONOCYTES % 9.1 % (0.0-11.0); NEUTROPHIL # 6.6 10^3/ul (1.6-7.5); NEUTROPHILS % 66.1 % (39.0-77.0); PLATELET COUNT 303 10^3/UL (140-415); RED BLOOD COUNT 5.01 10^6/ul (4.70-6.10); RED CELL DISTRIBUTION WIDTH 16.1 % (11.5-14.5)
[2018-05-28 18:17] LABS: ADD UMIC NO; UR ASCORBIC ACID 40 mg/dL (NEGATIVE); UR BACTERIA FEW /HPF (NONE SEEN); UR BILIRUBIN (Dip) NEGATIVE (NEGATIVE); UR BLOOD (Dip) NEGATIVE (NEGATIVE); UR CLARITY SLIGHTLY CLOUDY (CLEAR); UR COLOR YELLOW (YELLOW); UR GLUCOSE (Dip) NEGATIVE (NEGATIVE); UR KETONES (Dip) NEGATIVE (NEGATIVE); UR LEUKOCYTE ESTERASE (Dip) NEGATIVE Leu/ul (NEGATIVE); UR MUCUS FEW /HPF (NONE SEEN); UR NITRITE (Dip) NEGATIVE (NEGATIVE); UR RBC 2 /HPF (0-5); UR TOTAL PROTEIN (Dip) NEGATIVE (NEGATIVE); UR UROBILINOGEN (Dip) NEGATIVE (NEGATIVE); UR WBC 3 /HPF (0-5)
[2018-05-28 18:31] LABS: INR 0.82; PROTIME 11.4 Sec (11.9-14.9); PT RATIO 0.9
[2018-05-28 18:32] LABS: PARTIAL THROMBOPLASTIN TIME 30.9 Sec (23.0-35.0)
[2018-05-28 18:33] LABS: ALANINE AMINOTRANSFERASE 74 IU/L (13-69); ALBUMIN 4.2 g/dl (3.3-4.9); ALBUMIN/GLOBULIN RATIO 1.31; ALKALINE PHOSPHATASE 125 IU/L (42-121); ANION GAP 10 (5-13); ASPARTATE AMINO TRANSFERASE 140 IU/L (15-46); BILIRUBIN,INDIRECT 0.3 mg/dl (0-1.1); BILIRUBIN,TOTAL 0.3 mg/dl (0.2-1.3); BLOOD UREA NITROGEN 21 mg/dl (7-20); CALCIUM 9.6 mg/dl (8.4-10.2); CARBON DIOXIDE 25 mmol/L (21-31); CHLORIDE 105 mmol/L (97-110); CREATININE 0.89 mg/dl (0.61-1.24); Estimated GFR > 60 mL/min (>60); GLUCOSE 115 mg/dl (70-220); POTASSIUM 4.5 mmol/L (3.5-5.1); SODIUM 140 mmol/L (135-144); TOTAL PROTEIN 7.4 g/dl (6.1-8.1)
[2018-05-28 18:35] LABS: LACTIC ACID 1.5 mmol/L (0.5-2.0)
[2018-05-28 18:44] LABS: TROPONIN-I < 0.012 ng/ml (0.000-0.120)
[2018-05-28 18:52] LABS: LIPASE 10022 U/L (23-300)
[2018-05-28] MEDS ORDERED: HYDROmorphONE 0.5 MG/0.5 ML SYG IV (20:00)
[2018-05-28] MEDS ORDERED: NACL 0.9% 3 ML SYG IV (20:00)
[2018-05-28] MEDS ORDERED: ACETAMINOPHEN 325 MG TAB PO (20:00)
[2018-05-28] MEDS ORDERED: BISACODYL (EC) 5 MG TAB PO (20:00)
[2018-05-28] MEDS ORDERED: ONDANSETRON 4 MG INJ IV ×2 (20:00)
[2018-05-28] MEDS ORDERED: DOCUSATE SODIUM 100 MG CAP PO (20:00)
[2018-05-28] MEDS: ONDANSETRON 4 MG INJ IV (20:12)
[2018-05-28] MEDS: morphine 4 MG/ML VIAL IV (20:12)
[2018-05-28 20:53] LABS: LACTIC ACID 1.2 mmol/L (0.5-2.0)
[2018-05-28] MEDS: SOD CHLORIDE 0.9% 1,000 ML IV (21:30)
[2018-05-28 23:00] LABS: LACTIC ACID 1.4 mmol/L (0.5-2.0)
[2018-05-28] MEDS: BUDESONIDE (NEB) 0.5MG/2ML AMP HHN (23:01)
[2018-05-29] MEDS: SOD CHLORIDE 0.9% 1,000 ML IV ×5 (02:47→21:09)
[2018-05-29 06:00] LABS: ADD MAN DIFF? NO
[2018-05-29 06:01] LABS: WHITE BLOOD COUNT 8.1 10^3/ul (4.8-10.8)
[2018-05-29 06:02] LABS: BASOPHILS % 0.4 % (0.0-2.0); EOSINOPHILS # 0.2 10^3/ul (0.0-0.5); EOSINOPHILS % 2.6 % (0.0-7.0); HEMATOCRIT 38.2 % (42.0-52.0); HEMOGLOBIN 12.6 g/dl (14.0-18.0); LYMPHOCYTES # 2.3 10^3/ul (0.8-2.9); MEAN CORPUSCULAR HEMOGLOBIN 28.3 pg (29.0-33.0); MEAN CORPUSCULAR VOLUME 85.7 fl (82.0-101.0); MEAN PLATELET VOLUME 9.7 fl (7.4-10.4); MONOCYTE # 0.8 10^3/ul (0.3-0.9); MONOCYTES % 10.2 % (0.0-11.0); NEUTROPHIL # 4.8 10^3/ul (1.6-7.5); NEUTROPHILS % 58.6 % (39.0-77.0); PLATELET COUNT 246 10^3/UL (140-415); RED BLOOD COUNT 4.46 10^6/ul (4.70-6.10); RED CELL DISTRIBUTION WIDTH 16.3 % (11.5-14.5)
[2018-05-29] MEDS: LEVOTHYROXINE 100 MCG TAB PO (06:12)
[2018-05-29 06:35] LABS: ALANINE AMINOTRANSFERASE 142 IU/L (13-69); ALBUMIN 3.5 g/dl (3.3-4.9); ALBUMIN/GLOBULIN RATIO 1.59; ALKALINE PHOSPHATASE 120 IU/L (42-121); ANION GAP 7 (5-13); ASPARTATE AMINO TRANSFERASE 142 IU/L (15-46); BILIRUBIN,INDIRECT 0.2 mg/dl (0-1.1); BILIRUBIN,TOTAL 0.2 mg/dl (0.2-1.3); BLOOD UREA NITROGEN 17 mg/dl (7-20); CALCIUM 8.9 mg/dl (8.4-10.2); CARBON DIOXIDE 27 mmol/L (21-31); CHLORIDE 107 mmol/L (97-110); CREATININE 0.77 mg/dl (0.61-1.24); Estimated GFR > 60 mL/min (>60); GLUCOSE 93 mg/dl (70-220); MAGNESIUM 1.9 mg/dl (1.7-2.5); POTASSIUM 3.8 mmol/L (3.5-5.1); SODIUM 141 mmol/L (135-144); TOTAL PROTEIN 5.7 g/dl (6.1-8.1)
[2018-05-29 08:01] LABS: HEMOGLOBIN A1C 5.5 % (0-5.9)
[2018-05-29] MEDS: BUDESONIDE (NEB) 0.5MG/2ML AMP HHN ×2 (08:23→19:52)
[2018-05-29] MEDS: FAMOTIDINE 20 MG TAB PO (09:00)
[2018-05-29] MEDS ORDERED: CLOPIDOGREL 75 MG TAB PO (09:00)
[2018-05-29] MEDS: ASPIRIN 81 MG TAB PO (09:00)
[2018-05-29] MEDS ORDERED: ASPIRIN (EC) 81 MG TAB PO (09:00)
[2018-05-29] MEDS ORDERED: hydrALAzine 20 MG INJ IV (13:00)
[2018-05-29 18:16] LABS: TROPONIN-I < 0.012 ng/ml (0.000-0.120)
[2018-05-29] MEDS: ACETAMINOPHEN 325 MG TAB PO (18:47)
[2018-05-30 01:08] LABS: TROPONIN-I < 0.012 ng/ml (0.000-0.120)
[2018-05-30] MEDS: SOD CHLORIDE 0.9% 1,000 ML IV ×5 (02:17→20:04)
[2018-05-30] MEDS: LEVOTHYROXINE 100 MCG TAB PO (06:05)
[2018-05-30 07:11] LABS: ADD MAN DIFF? NO
[2018-05-30 07:15] LABS: BASOPHILS % 0.5 % (0.0-2.0); EOSINOPHILS # 0.2 10^3/ul (0.0-0.5); EOSINOPHILS % 3.6 % (0.0-7.0); HEMATOCRIT 41.7 % (42.0-52.0); HEMOGLOBIN 13.3 g/dl (14.0-18.0); LYMPHOCYTES # 2.7 10^3/ul (0.8-2.9); LYMPHOCYTES % 41.2 % (15.0-51.0); MEAN CORPUSCULAR HEMOGLOBIN 27.4 pg (29.0-33.0); MEAN CORPUSCULAR HGB CONC 31.9 g/dl (32.0-37.0); MEAN CORPUSCULAR VOLUME 85.8 fl (82.0-101.0); MEAN PLATELET VOLUME 9.8 fl (7.4-10.4); MONOCYTE # 0.6 10^3/ul (0.3-0.9); MONOCYTES % 8.7 % (0.0-11.0); NEUTROPHILS % 45.7 % (39.0-77.0); PLATELET COUNT 274 10^3/UL (140-415); RED BLOOD COUNT 4.86 10^6/ul (4.70-6.10)
[2018-05-30 07:15] LABS: WHITE BLOOD COUNT 6.5 10^3/ul (4.8-10.8)
[2018-05-30 07:43] LABS: ALANINE AMINOTRANSFERASE 98 IU/L (13-69); ALBUMIN 3.8 g/dl (3.3-4.9); ALBUMIN/GLOBULIN RATIO 1.65; ALKALINE PHOSPHATASE 125 IU/L (42-121); AMYLASE 59 U/L (11-123); ANION GAP 10 (5-13); ASPARTATE AMINO TRANSFERASE 61 IU/L (15-46); BILIRUBIN,INDIRECT 0.3 mg/dl (0-1.1); BILIRUBIN,TOTAL 0.3 mg/dl (0.2-1.3); BLOOD UREA NITROGEN 11 mg/dl (7-20); CARBON DIOXIDE 24 mmol/L (21-31); CHLORIDE 110 mmol/L (97-110); CREATININE 0.75 mg/dl (0.61-1.24); Estimated GFR > 60 mL/min (>60); GLUCOSE 92 mg/dl (70-220); LIPASE 208 U/L (23-300); POTASSIUM 3.9 mmol/L (3.5-5.1); SODIUM 144 mmol/L (135-144); TOTAL PROTEIN 6.1 g/dl (6.1-8.1)
[2018-05-30 08:01] LABS: PHOSPHORUS 4.1 mg/dl (2.5-4.9)
[2018-05-30 08:01] LABS: MAGNESIUM 1.9 mg/dl (1.7-2.5)
[2018-05-30 08:11] LABS: CHOL/HDL RATIO 5.3 RATIO; HDL CHOLESTEROL 29 mg/dl (30-78); LDL CHOLESTEROL,CALCULATED 106 mg/dl; TRIGLYCERIDES 107 mg/dl (0-149)
[2018-05-30 08:11] LABS: CHOLESTEROL 156 mg/dl (100-200)
[2018-05-30 08:26] LABS: TROPONIN-I < 0.012 ng/ml (0.000-0.120)
[2018-05-30] MEDS: BUDESONIDE (NEB) 0.5MG/2ML AMP HHN ×2 (08:42→19:50)
[2018-05-30] MEDS: FAMOTIDINE 20 MG TAB PO (09:02)
[2018-05-31] MEDS: SOD CHLORIDE 0.9% 1,000 ML IV ×5 (01:31→22:58)
[2018-05-31 06:06] LABS: ADD MAN DIFF? NO
[2018-05-31 06:27] LABS: WHITE BLOOD COUNT 6.3 10^3/ul (4.8-10.8)
[2018-05-31 06:27] LABS: BASOPHILS % 0.6 % (0.0-2.0); EOSINOPHILS # 0.2 10^3/ul (0.0-0.5); EOSINOPHILS % 3.8 % (0.0-7.0); HEMATOCRIT 37.2 % (42.0-52.0); HEMOGLOBIN 12.3 g/dl (14.0-18.0); LYMPHOCYTES # 2.4 10^3/ul (0.8-2.9); LYMPHOCYTES % 38.4 % (15.0-51.0); MEAN CORPUSCULAR HGB CONC 33.1 g/dl (32.0-37.0); MEAN CORPUSCULAR VOLUME 84.7 fl (82.0-101.0); MEAN PLATELET VOLUME 10.1 fl (7.4-10.4); MONOCYTE # 0.7 10^3/ul (0.3-0.9); MONOCYTES % 10.4 % (0.0-11.0); NEUTROPHIL # 2.9 10^3/ul (1.6-7.5); NEUTROPHILS % 46.5 % (39.0-77.0); PLATELET COUNT 242 10^3/UL (140-415); RED BLOOD COUNT 4.39 10^6/ul (4.70-6.10)
[2018-05-31 06:30] LABS: ALANINE AMINOTRANSFERASE 67 IU/L (13-69); ALBUMIN 3.4 g/dl (3.3-4.9); ALBUMIN/GLOBULIN RATIO 1.47; ALKALINE PHOSPHATASE 92 IU/L (42-121); ANION GAP 8 (5-13); ASPARTATE AMINO TRANSFERASE 40 IU/L (15-46); BILIRUBIN,INDIRECT 0.2 mg/dl (0-1.1); BILIRUBIN,TOTAL 0.2 mg/dl (0.2-1.3); BLOOD UREA NITROGEN 9 mg/dl (7-20); CALCIUM 8.7 mg/dl (8.4-10.2); CARBON DIOXIDE 26 mmol/L (21-31); CHLORIDE 109 mmol/L (97-110); CREATININE 0.71 mg/dl (0.61-1.24); Estimated GFR > 60 mL/min (>60); GLUCOSE 82 mg/dl (70-220); POTASSIUM 3.6 mmol/L (3.5-5.1); SODIUM 143 mmol/L (135-144); TOTAL PROTEIN 5.7 g/dl (6.1-8.1)
[2018-05-31 06:59] LABS: INR 0.95; PROTIME 12.8 Sec (11.9-14.9)
[2018-05-31] MEDS: LEVOTHYROXINE 100 MCG TAB PO (07:00)
[2018-05-31] MEDS: FAMOTIDINE 20 MG TAB PO (09:00)
[2018-05-31] MEDS: BUDESONIDE (NEB) 0.5MG/2ML AMP HHN ×2 (09:19→20:50)
[2018-05-31] MEDS: INDOMETHACIN 50 MG SUPP PR (15:00)
[2018-05-31] MEDS ORDERED: IOHEXOL 300MG/ML 30 ML BTL (15:20)
[2018-05-31] MEDS ORDERED: FENTAnyl 50 MCG/ML VIAL (15:55)
[2018-05-31] MEDS ORDERED: MIDAZOLAM 1 MG/ML 2 ML INJ (15:55)
[2018-05-31] MEDS ORDERED: PROPOFOL 20 ML (16:44)
[2018-05-31] MEDS ORDERED: LIDOCAINE 2% (SDV) 5 ML INJ (16:44)
[2018-05-31] MEDS ORDERED: ROCURONIUM 50 MG INJ (16:44)
[2018-05-31] MEDS ORDERED: ONDANSETRON 4 MG INJ (16:45)
[2018-05-31] MEDS ORDERED: CEFAZOLIN 1 GM INJ (16:45)
[2018-05-31] MEDS ORDERED: HYDROmorphONE 1 MG/5 ML IV SYRINGE IV (17:06)
[2018-05-31] MEDS: HYDROmorphONE 1 MG/5 ML IV SYRINGE IV ×3 (17:10→17:41)
[2018-05-31] MEDS: IOHEXOL 300MG/ML 150 ML BTL (17:20)
[2018-05-31] MEDS ORDERED: FENTAnyl 50 MCG/ML VIAL IV (17:30)
[2018-05-31] MEDS ORDERED: ONDANSETRON 4 MG INJ IV (17:30)
[2018-05-31] MEDS ORDERED: LABETALOL HCL 20MG INJ IV (17:30)
[2018-05-31] MEDS ORDERED: hydrALAzine 20 MG INJ IV (17:30)
[2018-05-31] MEDS ORDERED: DIPHENHYDRAMINE 50 MG INJ IV (17:30)
[2018-05-31] MEDS ORDERED: MEPERIDINE 25 MG INJ IV (17:30)
[2018-05-31] MEDS: SOD CHLORIDE 0.9% 100 ML (17:42)
[2018-05-31] MEDS ORDERED: PENDING SANTYL ORDER FOR WOUND CARE XX (22:30)
[2018-06-01] MEDS: SOD CHLORIDE 0.9% 1,000 ML IV ×5 (03:01→23:58)
[2018-06-01 05:15] LABS: ADD MAN DIFF? NO
[2018-06-01 05:17] LABS: WHITE BLOOD COUNT 5.6 10^3/ul (4.8-10.8)
[2018-06-01 05:17] LABS: BASOPHILS % 0.2 % (0.0-2.0); EOSINOPHILS # 0.1 10^3/ul (0.0-0.5); EOSINOPHILS % 2.1 % (0.0-7.0); HEMATOCRIT 36.5 % (42.0-52.0); HEMOGLOBIN 11.9 g/dl (14.0-18.0); LYMPHOCYTES # 1.8 10^3/ul (0.8-2.9); LYMPHOCYTES % 31.7 % (15.0-51.0); MEAN CORPUSCULAR HEMOGLOBIN 27.7 pg (29.0-33.0); MEAN CORPUSCULAR HGB CONC 32.6 g/dl (32.0-37.0); MEAN CORPUSCULAR VOLUME 85.1 fl (82.0-101.0); MEAN PLATELET VOLUME 9.4 fl (7.4-10.4); MONOCYTE # 0.6 10^3/ul (0.3-0.9); MONOCYTES % 11.1 % (0.0-11.0); NEUTROPHIL # 3.1 10^3/ul (1.6-7.5); NEUTROPHILS % 54.7 % (39.0-77.0); PLATELET COUNT 222 10^3/UL (140-415); RED BLOOD COUNT 4.29 10^6/ul (4.70-6.10)
[2018-06-01 05:48] LABS: ALANINE AMINOTRANSFERASE 56 IU/L (13-69); ALBUMIN 3.4 g/dl (3.3-4.9); ALBUMIN/GLOBULIN RATIO 1.61; ALKALINE PHOSPHATASE 79 IU/L (42-121); ANION GAP 9 (5-13); ASPARTATE AMINO TRANSFERASE 31 IU/L (15-46); BILIRUBIN,INDIRECT 0.2 mg/dl (0-1.1); BILIRUBIN,TOTAL 0.2 mg/dl (0.2-1.3); BLOOD UREA NITROGEN 9 mg/dl (7-20); CALCIUM 8.5 mg/dl (8.4-10.2); CARBON DIOXIDE 26 mmol/L (21-31); CHLORIDE 109 mmol/L (97-110); CREATININE 0.72 mg/dl (0.61-1.24); Estimated GFR > 60 mL/min (>60); GLUCOSE 101 mg/dl (70-220); POTASSIUM 3.6 mmol/L (3.5-5.1); SODIUM 144 mmol/L (135-144); TOTAL PROTEIN 5.5 g/dl (6.1-8.1)
[2018-06-01] MEDS: LEVOTHYROXINE 100 MCG TAB PO (06:00)
[2018-06-01] MEDS: FAMOTIDINE 20 MG TAB PO (09:34)
[2018-06-01] MEDS: ACETAMINOPHEN 325 MG TAB PO (10:09)
[2018-06-01] MEDS: BUDESONIDE (NEB) 0.5MG/2ML AMP HHN ×2 (10:24→22:13)
[2018-06-02] MEDS: SOD CHLORIDE 0.9% 1,000 ML IV ×5 (01:35→21:54)
[2018-06-02 05:46] LABS: ADD MAN DIFF? NO
[2018-06-02 05:58] LABS: BASOPHILS % 0.7 % (0.0-2.0); EOSINOPHILS # 0.2 10^3/ul (0.0-0.5); EOSINOPHILS % 3.3 % (0.0-7.0); HEMATOCRIT 38.6 % (42.0-52.0); HEMOGLOBIN 12.7 g/dl (14.0-18.0); LYMPHOCYTES # 1.9 10^3/ul (0.8-2.9); LYMPHOCYTES % 41.6 % (15.0-51.0); MEAN CORPUSCULAR HEMOGLOBIN 27.7 pg (29.0-33.0); MEAN CORPUSCULAR HGB CONC 32.9 g/dl (32.0-37.0); MEAN CORPUSCULAR VOLUME 84.1 fl (82.0-101.0); MEAN PLATELET VOLUME 9.6 fl (7.4-10.4); MONOCYTE # 0.5 10^3/ul (0.3-0.9); MONOCYTES % 10.5 % (0.0-11.0); NEUTROPHILS % 43.5 % (39.0-77.0); PLATELET COUNT 244 10^3/UL (140-415); RED BLOOD COUNT 4.59 10^6/ul (4.70-6.10); RED CELL DISTRIBUTION WIDTH 15.9 % (11.5-14.5)
[2018-06-02 05:58] LABS: WHITE BLOOD COUNT 4.6 10^3/ul (4.8-10.8)
[2018-06-02 06:09] LABS: ALANINE AMINOTRANSFERASE 46 IU/L (13-69); ALBUMIN 3.4 g/dl (3.3-4.9); ALKALINE PHOSPHATASE 76 IU/L (42-121); ANION GAP 6 (5-13); ASPARTATE AMINO TRANSFERASE 32 IU/L (15-46); BILIRUBIN,INDIRECT 0.3 mg/dl (0-1.1); BILIRUBIN,TOTAL 0.3 mg/dl (0.2-1.3); BLOOD UREA NITROGEN 5 mg/dl (7-20); CALCIUM 8.8 mg/dl (8.4-10.2); CARBON DIOXIDE 26 mmol/L (21-31); CHLORIDE 113 mmol/L (97-110); CREATININE 0.67 mg/dl (0.61-1.24); Estimated GFR > 60 mL/min (>60); GLUCOSE 91 mg/dl (70-220); INR 1.02; POTASSIUM 3.5 mmol/L (3.5-5.1); PROTIME 13.5 Sec (11.9-14.9); PT RATIO 1.1; SODIUM 145 mmol/L (135-144)
[2018-06-02] MEDS: LEVOTHYROXINE 100 MCG TAB PO (06:11)
[2018-06-02] MEDS: BUDESONIDE (NEB) 0.5MG/2ML AMP HHN ×2 (08:06→20:00)
[2018-06-02] MEDS: FAMOTIDINE 20 MG TAB PO (09:07)
[2018-06-02] MEDS ORDERED: HEPARIN 1000 UNITS/ML 10 ML INJ (13:57)
[2018-06-02] MEDS ORDERED: LIDOCAINE 2% (MDV) 20 ML INJ (13:57)
[2018-06-02] MEDS ORDERED: IODIXANOL LOCM 100 ML BTL (13:57)
[2018-06-02] MEDS ORDERED: FENTAnyl 50 MCG/ML VIAL (14:35)
[2018-06-02] MEDS ORDERED: MIDAZOLAM 1 MG/ML 2 ML INJ (14:35)
[2018-06-02] MEDS ORDERED: NITROGLYCERIN (IC) 100 MCG/ML INJ (14:36)
[2018-06-02] MEDS ORDERED: VERAPAMIL 5 MG INJ (14:36)
[2018-06-02] MEDS ORDERED: ONDANSETRON 4 MG INJ IV (16:00)
[2018-06-02] MEDS ORDERED: morphine 2 MG INJ IV (16:00)
[2018-06-02] MEDS ORDERED: ACETAMINOPHEN 325 MG TAB PO (16:00)
[2018-06-02] MEDS ORDERED: AL HYDROX/MG HYDROX/SIMETH 30 ML CUP PO (16:00)
[2018-06-03] MEDS: SOD CHLORIDE 0.9% 1,000 ML IV ×6 (02:11→23:32)
[2018-06-03 05:55] LABS: ADD MAN DIFF? NO
[2018-06-03 06:01] LABS: BASOPHILS % 0.3 % (0.0-2.0); EOSINOPHILS # 0.2 10^3/ul (0.0-0.5); EOSINOPHILS % 2.6 % (0.0-7.0); HEMATOCRIT 40.1 % (42.0-52.0); HEMOGLOBIN 13.2 g/dl (14.0-18.0); LYMPHOCYTES # 2.4 10^3/ul (0.8-2.9); LYMPHOCYTES % 40.1 % (15.0-51.0); MEAN CORPUSCULAR HEMOGLOBIN 27.9 pg (29.0-33.0); MEAN CORPUSCULAR HGB CONC 32.9 g/dl (32.0-37.0); MEAN CORPUSCULAR VOLUME 84.8 fl (82.0-101.0); MEAN PLATELET VOLUME 9.7 fl (7.4-10.4); MONOCYTE # 0.6 10^3/ul (0.3-0.9); MONOCYTES % 10.8 % (0.0-11.0); NEUTROPHIL # 2.7 10^3/ul (1.6-7.5); PLATELET COUNT 254 10^3/UL (140-415); RED BLOOD COUNT 4.73 10^6/ul (4.70-6.10); RED CELL DISTRIBUTION WIDTH 15.6 % (11.5-14.5)
[2018-06-03 06:01] LABS: WHITE BLOOD COUNT 5.9 10^3/ul (4.8-10.8)
[2018-06-03] MEDS: LEVOTHYROXINE 100 MCG TAB PO (06:09)
[2018-06-03 06:19] LABS: ALANINE AMINOTRANSFERASE 44 IU/L (13-69); ALBUMIN 3.5 g/dl (3.3-4.9); ALBUMIN/GLOBULIN RATIO 1.52; ALKALINE PHOSPHATASE 78 IU/L (42-121); ANION GAP 9 (5-13); ASPARTATE AMINO TRANSFERASE 24 IU/L (15-46); BILIRUBIN,INDIRECT 0.3 mg/dl (0-1.1); BILIRUBIN,TOTAL 0.3 mg/dl (0.2-1.3); BLOOD UREA NITROGEN 4 mg/dl (7-20); CALCIUM 8.6 mg/dl (8.4-10.2); CARBON DIOXIDE 27 mmol/L (21-31); CHLORIDE 108 mmol/L (97-110); CREATININE 0.71 mg/dl (0.61-1.24); Estimated GFR > 60 mL/min (>60); GLUCOSE 88 mg/dl (70-220); POTASSIUM 3.2 mmol/L (3.5-5.1); SODIUM 144 mmol/L (135-144); TOTAL PROTEIN 5.8 g/dl (6.1-8.1)
[2018-06-03] MEDS: FAMOTIDINE 20 MG TAB PO (08:28)
[2018-06-03] MEDS: BUDESONIDE (NEB) 0.5MG/2ML AMP HHN ×2 (09:00→20:00)
[2018-06-03] MEDS: POTASSIUM CHLORIDE (SR) 20 MEQ TAB PO (13:39)
[2018-06-03] MEDS: POTASSIUM CHLORIDE 100 ML IVPB ×2 (15:47→17:59)
[2018-06-04] MEDS: SOD CHLORIDE 0.9% 1,000 ML IV ×2 (04:21→10:06)
[2018-06-04 05:34] LABS: ADD MAN DIFF? NO
[2018-06-04 05:49] LABS: BASOPHILS % 0.5 % (0.0-2.0); EOSINOPHILS # 0.2 10^3/ul (0.0-0.5); EOSINOPHILS % 3.5 % (0.0-7.0); HEMATOCRIT 39.7 % (42.0-52.0); LYMPHOCYTES # 2.6 10^3/ul (0.8-2.9); MEAN CORPUSCULAR HEMOGLOBIN 27.5 pg (29.0-33.0); MEAN CORPUSCULAR HGB CONC 32.7 g/dl (32.0-37.0); MEAN CORPUSCULAR VOLUME 83.9 fl (82.0-101.0); MEAN PLATELET VOLUME 9.6 fl (7.4-10.4); MONOCYTE # 0.6 10^3/ul (0.3-0.9); MONOCYTES % 10.3 % (0.0-11.0); NEUTROPHIL # 2.6 10^3/ul (1.6-7.5); NEUTROPHILS % 42.5 % (39.0-77.0); PLATELET COUNT 216 10^3/UL (140-415); RED BLOOD COUNT 4.73 10^6/ul (4.70-6.10); RED CELL DISTRIBUTION WIDTH 15.9 % (11.5-14.5)
[2018-06-04 06:06] LABS: ALANINE AMINOTRANSFERASE 38 IU/L (13-69); ALBUMIN 3.4 g/dl (3.3-4.9); ALBUMIN/GLOBULIN RATIO 1.25; ALKALINE PHOSPHATASE 75 IU/L (42-121); ANION GAP 5 (5-13); ASPARTATE AMINO TRANSFERASE 21 IU/L (15-46); BILIRUBIN,INDIRECT 0.3 mg/dl (0-1.1); BILIRUBIN,TOTAL 0.3 mg/dl (0.2-1.3); BLOOD UREA NITROGEN 5 mg/dl (7-20); CALCIUM 8.7 mg/dl (8.4-10.2); CARBON DIOXIDE 27 mmol/L (21-31); CHLORIDE 111 mmol/L (97-110); CREATININE 0.66 mg/dl (0.61-1.24); Estimated GFR > 60 mL/min (>60); GLUCOSE 98 mg/dl (70-220); POTASSIUM 3.7 mmol/L (3.5-5.1); SODIUM 143 mmol/L (135-144); TOTAL PROTEIN 6.1 g/dl (6.1-8.1)
[2018-06-04] MEDS: LEVOTHYROXINE 100 MCG TAB PO (06:36)
[2018-06-04] MEDS: BUDESONIDE (NEB) 0.5MG/2ML AMP HHN (08:09)
[2018-06-04] MEDS: FAMOTIDINE 20 MG TAB PO (08:22)
[2018-06-04 09:15] LABS: LIPASE 86 U/L (23-300)
[2018-06-04 09:20] LABS: AMYLASE < 30 U/L (11-123)
[2018-06-04] MEDS: POTASSIUM CHLORIDE (SR) 20 MEQ TAB PO (10:56)
== END 2018-06-04 12:50 | disposition home or self-care (01) | DRG 439 ==
LOC: E/R 17:18 → PP2 19:37
PROC: 0F798DZ Dilation of Common Bile Duct with Intraluminal Device, Via Natural or Artificial Opening Endoscopic (ICD-10-PCS; principal; 2018-05-31 15:00)
PROC: 4A023N7 Measurement of Cardiac Sampling and Pressure, Left Heart, Percutaneous Approach (ICD-10-PCS; 2018-05-31 15:54)
PROC: B211YZZ Fluoroscopy of Multiple Coronary Arteries using Other Contrast (ICD-10-PCS; 2018-05-31 15:54)
DX: K85.10 Biliary acute pancreatitis without necrosis or infection (principal); K80.60 Calculus of gallbladder and bile duct with cholecystitis, unspecified, without obstruction; K86.3 Pseudocyst of pancreas; I10 Essential (primary) hypertension; E03.9 Hypothyroidism, unspecified; I25.10 Atherosclerotic heart disease of native coronary artery without angina pectoris; D64.9 Anemia, unspecified; E87.6 Hypokalemia; Z95.828 Presence of other vascular implants and grafts; Z86.73 Personal history of transient ischemic attack (TIA), and cerebral infarction without residual deficits; Z85.89 Personal history of malignant neoplasm of other organs and systems; Z92.3 Personal history of irradiation
CPT/HCPCS: 36415; 71045; 74177; 74181; 74330; 76705; 80053; 80061; 81001; 81003; 82150; 83036; 83605; 83690; 83735; 84100; 84443; 84484; 85025; 85610; 85730; 87040; 87086; 93005; 93306; 93458; 93880; 94640; 94664; 99285-25

== ENCOUNTER 2018-06-26 06:50 | Inpatient (IN) | payer OTHER ==
[2018-06-26] MEDS: CEFAZOLIN 1 GM/50 ML (PMX) 50 ML IVPB (07:00)
[2018-06-26] MEDS ORDERED: NEOSTIGMINE 3 MG/3 ML SYRINGE (07:00)
[2018-06-26] MEDS ORDERED: GLYCOPYRROLATE 0.4 MG INJ (07:00)
[2018-06-26] MEDS ORDERED: ONDANSETRON 4 MG INJ (07:00)
[2018-06-26] MEDS: SOD CHLORIDE 0.9% 1,000 ML IV (07:00)
[2018-06-26] MEDS ORDERED: FENTAnyl 50 MCG/ML VIAL ×2 (07:40→10:44)
[2018-06-26] MEDS ORDERED: LIDOCAINE 100 MG SYRINGE (07:42)
[2018-06-26] MEDS ORDERED: PROPOFOL 20 ML (07:42)
[2018-06-26] MEDS ORDERED: MIDAZOLAM 1 MG/ML 2 ML INJ (07:42)
[2018-06-26] MEDS ORDERED: METOCLOPRAMIDE 10 MG INJ (07:47)
[2018-06-26] MEDS ORDERED: ROCURONIUM 50 MG INJ (07:48)
[2018-06-26] MEDS ORDERED: SUCCINYLCHOLINE CHLORIDE 100 MG/5 ML SYG IV (07:48)
[2018-06-26] MEDS ORDERED: ROPIVACAINE 0.5 % 30 ML VIAL (07:49)
[2018-06-26] MEDS: LIDOCAINE 4% SOLUTION 50 ML BTL TOP (08:30)
[2018-06-26] MEDS: LIDOCAINE 2% VISC 15 ML CUP TOP (08:30)
[2018-06-26] MEDS ORDERED: MEPERIDINE 25 MG INJ IV (10:30)
[2018-06-26] MEDS ORDERED: hydrALAzine 20 MG INJ IV (10:30)
[2018-06-26] MEDS ORDERED: ALBUMIN HUMAN 5% 250 ML IV (10:30)
[2018-06-26] MEDS ORDERED: MIDAZOLAM 1 MG/ML 2 ML INJ IV (10:30)
[2018-06-26] MEDS ORDERED: LEVALBUTEROL (NEB) 1.25 MG/0.5 ML AMP HHN (10:30)
[2018-06-26] MEDS ORDERED: DIPHENHYDRAMINE 50 MG INJ IV ×2 (10:30→11:00)
[2018-06-26] MEDS ORDERED: FENTAnyl 50 MCG/ML VIAL IV ×2 (10:30)
[2018-06-26] MEDS ORDERED: IPRATROPIUM (NEB) 0.5 MG/2.5 ML AMP HHN (10:30)
[2018-06-26] MEDS ORDERED: NALOXONE (0.4 MG/ML) INJ IV ×3 (10:30→12:00)
[2018-06-26] MEDS ORDERED: LORAZEPAM 2 MG INJ IV (10:30)
[2018-06-26] MEDS ORDERED: ONDANSETRON 4 MG INJ IV ×2 (10:30→11:00)
[2018-06-26] MEDS ORDERED: HYDROmorphONE 1 MG/5 ML IV SYRINGE IV ×2 (10:30)
[2018-06-26] MEDS ORDERED: LABETALOL HCL 20MG INJ IV (10:30)
[2018-06-26] MEDS ORDERED: HYDROmorphONE 2 MG/ML SYG (10:41)
[2018-06-26] MEDS ORDERED: HYDROmorphONE 0.5 MG/0.5 ML SYG IV (11:00)
[2018-06-26] MEDS ORDERED: FENTAnyl 2MCG/ML-ROPIV 0.2% 100 ML BAG EPI ×3 (11:00→12:00)
[2018-06-26] MEDS ORDERED: ZOLPIDEM 5 MG TAB PO (11:00)
[2018-06-26] MEDS ORDERED: morphine SULFATE/PF (10 MG/10 ML) INJ (12:18)
[2018-06-26] MEDS ORDERED: SUGAMMADEX SODIUM 200 MG/2 ML VIAL IV (12:53)
[2018-06-26] MEDS: HYDROmorphONE 1 MG/5 ML IV SYRINGE IV (13:31)
[2018-06-26] MEDS: D5W-0.45 NACL + KCL 20 MEQ 1,000 ML IV ×3 (16:06→22:44)
[2018-06-27] MEDS: FENTAnyl 2MCG/ML-ROPIV 0.2% 100 ML BAG EPI ×3 (01:07→22:46)
[2018-06-27] MEDS: hydrALAzine 20 MG INJ IV ×2 (04:36→14:35)
[2018-06-27] MEDS: D5W-0.45 NACL + KCL 20 MEQ 1,000 ML IV ×3 (05:28→19:23)
[2018-06-27] MEDS: PANTOPRAZOLE 40 MG INJ IV (05:28)
[2018-06-27 10:47] LABS: ADD MAN DIFF? NO
[2018-06-27 10:51] LABS: BASOPHILS % 0.1 % (0.0-2.0); EOSINOPHILS % 0.3 % (0.0-7.0); HEMATOCRIT 40.3 % (42.0-52.0); HEMOGLOBIN 13.3 g/dl (14.0-18.0); LYMPHOCYTES # 1.8 10^3/ul (0.8-2.9); LYMPHOCYTES % 15.4 % (15.0-51.0); MEAN CORPUSCULAR VOLUME 84.8 fl (82.0-101.0); MEAN PLATELET VOLUME 9.8 fl (7.4-10.4); MONOCYTE # 0.9 10^3/ul (0.3-0.9); MONOCYTES % 8.1 % (0.0-11.0); NEUTROPHIL # 8.7 10^3/ul (1.6-7.5); NEUTROPHILS % 75.8 % (39.0-77.0); PLATELET COUNT 295 10^3/UL (140-415); RED BLOOD COUNT 4.75 10^6/ul (4.70-6.10); RED CELL DISTRIBUTION WIDTH 15.5 % (11.5-14.5)
[2018-06-27 10:51] LABS: WHITE BLOOD COUNT 11.5 10^3/ul (4.8-10.8)
[2018-06-27 11:11] LABS: ANION GAP 8 (5-13); BLOOD UREA NITROGEN 17 mg/dl (7-20); CALCIUM 8.6 mg/dl (8.4-10.2); CARBON DIOXIDE 27 mmol/L (21-31); CHLORIDE 102 mmol/L (97-110); CREATININE 0.61 mg/dl (0.61-1.24); Estimated GFR > 60 mL/min (>60); GLUCOSE 140 mg/dl (70-220); INR 0.96; POTASSIUM 4.7 mmol/L (3.5-5.1); PROTIME 12.9 Sec (11.9-14.9); SODIUM 137 mmol/L (135-144)
[2018-06-27 11:12] LABS: PARTIAL THROMBOPLASTIN TIME 31.8 Sec (23.0-35.0)
[2018-06-27] MEDS: HYDROmorphONE 0.5 MG/0.5 ML SYG IV (23:57)
[2018-06-28] MEDS: HYDROmorphONE 0.5 MG/0.5 ML SYG IV ×4 (00:03→13:38)
[2018-06-28] MEDS: METOPROLOL 25 MG TAB PO (00:50)
[2018-06-28] MEDS: IBUPROFEN 200 MG TAB PO (00:58)
[2018-06-28 01:03] LABS: Allen Test ACCEPTAB; Arterial Base Excess 0 mmol/L (-3.0-3); Arterial Blood Gas Oxygen Sat 95.3 mmHG (95.0-98.0); Arterial COHb 0.7 % (0.0-3.0); Arterial Fraction of Oxyhgb 94.3 % (93.0-99.0); Arterial HCO3 23.4 mmol/L (22.0-26.0); Arterial MetHb 0.3 % (0.0-1.5); Arterial pCO2 34.7 mmhg (35-45); MODE MASK - NRB; Site Right Radial
[2018-06-28] MEDS: IOHEXOL 300MG/ML 150 ML BTL (01:34)
[2018-06-28] MEDS: SOD CHLORIDE 0.9% 100 ML (01:34)
[2018-06-28] MEDS: hydrALAzine 20 MG INJ IV (02:35)
[2018-06-28] MEDS: D5W-0.45 NACL + KCL 20 MEQ 1,000 ML IV ×4 (04:42→22:57)
[2018-06-28] MEDS: PANTOPRAZOLE 40 MG INJ IV (05:23)
[2018-06-28 10:08] LABS: ADD MAN DIFF? NO
[2018-06-28 10:11] LABS: WHITE BLOOD COUNT 21.3 10^3/ul (4.8-10.8)
[2018-06-28 10:11] LABS: ABNORMAL IP MESSAGE 1; BASOPHILS % 0.1 % (0.0-2.0); HEMATOCRIT 39.9 % (42.0-52.0); HEMOGLOBIN 13.3 g/dl (14.0-18.0); LYMPHOCYTES # 1.9 10^3/ul (0.8-2.9); LYMPHOCYTES % 8.8 % (15.0-51.0); MEAN CORPUSCULAR HEMOGLOBIN 28.1 pg (29.0-33.0); MEAN CORPUSCULAR HGB CONC 33.3 g/dl (32.0-37.0); MEAN CORPUSCULAR VOLUME 84.4 fl (82.0-101.0); MEAN PLATELET VOLUME 9.8 fl (7.4-10.4); MONOCYTE # 2.6 10^3/ul (0.3-0.9); MONOCYTES % 12.2 % (0.0-11.0); NEUTROPHIL # 16.6 10^3/ul (1.6-7.5); NEUTROPHILS % 78.1 % (39.0-77.0); PLATELET COUNT 287 10^3/UL (140-415); POSITIVE DIFF @See below; RED BLOOD COUNT 4.73 10^6/ul (4.70-6.10); RED CELL DISTRIBUTION WIDTH 15.7 % (11.5-14.5)
[2018-06-28 10:32] LABS: ANION GAP 10 (5-13); BLOOD UREA NITROGEN 18 mg/dl (7-20); CALCIUM 8.6 mg/dl (8.4-10.2); CARBON DIOXIDE 26 mmol/L (21-31); CHLORIDE 98 mmol/L (97-110); CREATININE 0.97 mg/dl (0.61-1.24); Estimated GFR > 60 mL/min (>60); GLUCOSE 107 mg/dl (70-220); INR 1.03; PARTIAL THROMBOPLASTIN TIME 32.9 Sec (23.0-35.0); POTASSIUM 4.6 mmol/L (3.5-5.1); PROTIME 13.6 Sec (11.9-14.9); PT RATIO 1.1; SODIUM 134 mmol/L (135-144)
[2018-06-28] MEDS: PIPER-TAZO 3.375 GM IV (PMX) 100 ML IVPB ×3 (13:38→23:50)
[2018-06-28] MEDS: FLUCONAZOLE 200 MG (PMX) 100 ML IVPB (14:28)
[2018-06-28 17:04] LABS: LACTIC ACID 1.5 mmol/L (0.5-2.0)
[2018-06-29] MEDS: HYDROmorphONE 0.5 MG/0.5 ML SYG IV
[2018-06-29] MEDS ORDERED: DIPHENHYDRAMINE 50 MG INJ IV ×2 (05:00)
[2018-06-29] MEDS ORDERED: ONDANSETRON 4 MG INJ IV ×2 (05:00)
[2018-06-29] MEDS ORDERED: NALOXONE (0.4 MG/ML) INJ IV ×3 (05:00)
[2018-06-29] MEDS ORDERED: HYDROmorphONE 0.5 MG/0.5 ML SYG IV ×4 (05:00)
[2018-06-29 05:39] LABS: ABNORMAL IP MESSAGE 1; HEMATOCRIT 37.9 % (42.0-52.0); HEMOGLOBIN 12.5 g/dl (14.0-18.0); MEAN CORPUSCULAR HEMOGLOBIN 27.8 pg (29.0-33.0); MEAN CORPUSCULAR VOLUME 84.4 fl (82.0-101.0); MEAN PLATELET VOLUME 9.8 fl (7.4-10.4); PLATELET COUNT 250 10^3/UL (140-415); POSITIVE DIFF @See below; RED BLOOD COUNT 4.49 10^6/ul (4.70-6.10); RED CELL DISTRIBUTION WIDTH 15.6 % (11.5-14.5)
[2018-06-29 05:39] LABS: WHITE BLOOD COUNT 13.2 10^3/ul (4.8-10.8)
[2018-06-29 05:52] LABS: ADD MAN DIFF? YES
[2018-06-29] MEDS: PANTOPRAZOLE 40 MG INJ IV (05:52)
[2018-06-29] MEDS: PIPER-TAZO 3.375 GM IV (PMX) 100 ML IVPB ×3 (05:52→17:12)
[2018-06-29 05:59] LABS: PROTIME 15.4 Sec (11.9-14.9); PT RATIO 1.2
[2018-06-29 06:00] LABS: PARTIAL THROMBOPLASTIN TIME 35.6 Sec (23.0-35.0)
[2018-06-29] MEDS: D5W-0.45 NACL + KCL 20 MEQ 1,000 ML IV ×3 (06:01→22:00)
[2018-06-29 06:08] LABS: MAGNESIUM 1.5 mg/dl (1.7-2.5)
[2018-06-29 06:16] LABS: ALANINE AMINOTRANSFERASE 23 IU/L (13-69); ALBUMIN 3.2 g/dl (3.3-4.9); ALBUMIN/GLOBULIN RATIO 1.23; ALKALINE PHOSPHATASE 57 IU/L (42-121); ANION GAP 10 (5-13); ASPARTATE AMINO TRANSFERASE 34 IU/L (15-46); BILIRUBIN,INDIRECT 0.9 mg/dl (0-1.1); BILIRUBIN,TOTAL 0.9 mg/dl (0.2-1.3); BLOOD UREA NITROGEN 27 mg/dl (7-20); CARBON DIOXIDE 28 mmol/L (21-31); CHLORIDE 98 mmol/L (97-110); CREATININE 0.97 mg/dl (0.61-1.24); Estimated GFR > 60 mL/min (>60); GLUCOSE 121 mg/dl (70-220); POTASSIUM 4.3 mmol/L (3.5-5.1); SODIUM 136 mmol/L (135-144); TOTAL PROTEIN 5.8 g/dl (6.1-8.1)
[2018-06-29 06:27] LABS: LIPASE 20 U/L (23-300)
[2018-06-29 07:50] LABS: ANISOCYTOSIS 1+ (0-0); BAND NEUTROPHILS #M 3.8 10^3/ul (0.0-0.6); BAND NEUTROPHILS % (M) 29 % (0-4); BURR CELLS 1+ (0-0); GIANT THROMBO% (M) 1 % (0-0); LYMPHOCYTES #M 1.7 10^3/ul (0.8-2.9); LYMPHOCYTES % (M) 13 % (15-51); METAMYELOCYTES #M 0.1 10^3/ul (0.0-0.0); METAMYELOCYTES %M 1 % (0-0); MICROCYTOSIS 1+ (0-0); MONOCYTE #M 1.9 10^3/ul (0.3-0.9); MONOCYTES % (M) 15 % (0-11); PLATELET ESTIMATE NORMAL; POIKILOCYTOSIS 1+ (0-0); POLYCHROMASIA 1+ (0-0); REACTIVE LYMPHOCYTES #M 0.1 10^3/ul (0.0-0.0); REACTIVE LYMPHOCYTES% (M) 1 % (0-0); SEG NEUT #M 5.9 10^3/ul (1.6-7.5); SEGMENTED NEUTROPHILS (M) % 41 % (39-77); SMUDGE%M 2 % (0-0)
[2018-06-30] MEDS: PIPER-TAZO 3.375 GM IV (PMX) 100 ML IVPB ×4 (00:06→17:32)
[2018-06-30] MEDS: PANTOPRAZOLE 40 MG INJ IV (06:40)
[2018-06-30] MEDS: D5W-0.45 NACL + KCL 20 MEQ 1,000 ML IV ×3 (06:42→11:39)
[2018-06-30 10:12] LABS: WHITE BLOOD COUNT 8.7 10^3/ul (4.8-10.8)
[2018-06-30 10:12] LABS: HEMATOCRIT 32.2 % (42.0-52.0); HEMOGLOBIN 10.6 g/dl (14.0-18.0); MEAN CORPUSCULAR HEMOGLOBIN 28.1 pg (29.0-33.0); MEAN CORPUSCULAR HGB CONC 32.9 g/dl (32.0-37.0); MEAN CORPUSCULAR VOLUME 85.4 fl (82.0-101.0); MEAN PLATELET VOLUME 9.9 fl (7.4-10.4); PLATELET COUNT 247 10^3/UL (140-415); POSITIVE DIFF @See below; RED BLOOD COUNT 3.77 10^6/ul (4.70-6.10); RED CELL DISTRIBUTION WIDTH 15.3 % (11.5-14.5)
[2018-06-30 10:15] LABS: ADD MAN DIFF? YES
[2018-06-30 10:35] LABS: INR 1.19; PROTIME 15.3 Sec (11.9-14.9); PT RATIO 1.2
[2018-06-30 10:36] LABS: PARTIAL THROMBOPLASTIN TIME 35.2 Sec (23.0-35.0)
[2018-06-30 10:38] LABS: ANION GAP 6 (5-13); BLOOD UREA NITROGEN 19 mg/dl (7-20); CALCIUM 8.5 mg/dl (8.4-10.2); CARBON DIOXIDE 28 mmol/L (21-31); CHLORIDE 102 mmol/L (97-110); CREATININE 0.75 mg/dl (0.61-1.24); Estimated GFR > 60 mL/min (>60); GLUCOSE 121 mg/dl (70-220); POTASSIUM 3.8 mmol/L (3.5-5.1); SODIUM 136 mmol/L (135-144)
[2018-06-30 11:18] LABS: ANISOCYTOSIS 1+ (0-0); BAND NEUTROPHILS #M 1.9 10^3/ul (0.0-0.6); BAND NEUTROPHILS % (M) 22 % (0-4); BURR CELLS 1+ (0-0); EOSINOPHILS % (M) 1 % (0-7); LYMPHOCYTES #M 0.8 10^3/ul (0.8-2.9); LYMPHOCYTES % (M) 10 % (15-51); MICROCYTOSIS 1+ (0-0); MONOCYTE #M 0.6 10^3/ul (0.3-0.9); MONOCYTES % (M) 8 % (0-11); PLATELET ESTIMATE NORMAL; POIKILOCYTOSIS 2+ (0-0); POLYCHROMASIA 1+ (0-0); REACTIVE LYMPHOCYTES #M 1.7 10^3/ul (0.0-0.0); REACTIVE LYMPHOCYTES% (M) 20 % (0-0); SEG NEUT #M 3.6 10^3/ul (1.6-7.5); SEGMENTED NEUTROPHILS (M) % 39 % (39-77); SMUDGE%M 8 % (0-0)
[2018-07-01] MEDS: D5W-0.45 NACL + KCL 20 MEQ 1,000 ML IV ×4 (01:14→16:08)
[2018-07-01] MEDS: PIPER-TAZO 3.375 GM IV (PMX) 100 ML IVPB ×5 (01:15→23:41)
[2018-07-01] MEDS: PANTOPRAZOLE 40 MG INJ IV (05:36)
[2018-07-01 06:08] LABS: ADD MAN DIFF? NO
[2018-07-01 06:14] LABS: WHITE BLOOD COUNT 6.3 10^3/ul (4.8-10.8)
[2018-07-01 06:14] LABS: BASOPHILS % 0.3 % (0.0-2.0); EOSINOPHILS # 0.2 10^3/ul (0.0-0.5); EOSINOPHILS % 2.6 % (0.0-7.0); HEMATOCRIT 31.8 % (42.0-52.0); HEMOGLOBIN 10.7 g/dl (14.0-18.0); LYMPHOCYTES # 1.2 10^3/ul (0.8-2.9); LYMPHOCYTES % 19.2 % (15.0-51.0); MEAN CORPUSCULAR HEMOGLOBIN 28.6 pg (29.0-33.0); MEAN CORPUSCULAR HGB CONC 33.6 g/dl (32.0-37.0); MEAN PLATELET VOLUME 9.7 fl (7.4-10.4); MONOCYTE # 0.8 10^3/ul (0.3-0.9); MONOCYTES % 13.1 % (0.0-11.0); NEUTROPHILS % 64.3 % (39.0-77.0); PLATELET COUNT 245 10^3/UL (140-415); RED BLOOD COUNT 3.74 10^6/ul (4.70-6.10); RED CELL DISTRIBUTION WIDTH 14.9 % (11.5-14.5)
[2018-07-01 07:00] LABS: ANION GAP 8 (5-13); BLOOD UREA NITROGEN 14 mg/dl (7-20); CALCIUM 8.8 mg/dl (8.4-10.2); CARBON DIOXIDE 26 mmol/L (21-31); CHLORIDE 105 mmol/L (97-110); CREATININE 0.74 mg/dl (0.61-1.24); Estimated GFR > 60 mL/min (>60); GLUCOSE 91 mg/dl (70-220); PHOSPHORUS 3.4 mg/dl (2.5-4.9); POTASSIUM 3.5 mmol/L (3.5-5.1); SODIUM 139 mmol/L (135-144)
[2018-07-02] MEDS: D5W-0.45 NACL + KCL 20 MEQ 1,000 ML IV ×2 (04:14→12:18)
[2018-07-02] MEDS: PANTOPRAZOLE 40 MG INJ IV (05:10)
[2018-07-03] MEDS: PANTOPRAZOLE 40 MG INJ IV (05:48)
[2018-07-04] MEDS: PANTOPRAZOLE (EC) 40 MG TAB PO (05:42)
[2018-07-04 06:58] LABS: ADD MAN DIFF? NO
[2018-07-04 07:03] LABS: BASOPHILS % 0.5 % (0.0-2.0); EOSINOPHILS # 0.2 10^3/ul (0.0-0.5); EOSINOPHILS % 2.7 % (0.0-7.0); HEMATOCRIT 35.6 % (42.0-52.0); HEMOGLOBIN 11.9 g/dl (14.0-18.0); LYMPHOCYTES % 22.1 % (15.0-51.0); MEAN CORPUSCULAR HEMOGLOBIN 28.5 pg (29.0-33.0); MEAN CORPUSCULAR HGB CONC 33.4 g/dl (32.0-37.0); MEAN CORPUSCULAR VOLUME 85.4 fl (82.0-101.0); MEAN PLATELET VOLUME 9.4 fl (7.4-10.4); MONOCYTE # 1.2 10^3/ul (0.3-0.9); MONOCYTES % 13.9 % (0.0-11.0); NEUTROPHIL # 5.3 10^3/ul (1.6-7.5); NEUTROPHILS % 59.3 % (39.0-77.0); PLATELET COUNT 363 10^3/UL (140-415); RED BLOOD COUNT 4.17 10^6/ul (4.70-6.10); RED CELL DISTRIBUTION WIDTH 14.5 % (11.5-14.5)
[2018-07-04 07:03] LABS: WHITE BLOOD COUNT 8.8 10^3/ul (4.8-10.8)
[2018-07-04] MEDS ORDERED: VANCOMYCIN IV PER PHARMACY XX (14:30)
[2018-07-04] MEDS: PIPER-TAZO 3.375 GM IV (PMX) 100 ML IVPB ×2 (15:58→23:59)
[2018-07-04] MEDS: VANCOMYCIN 2 GM in SOD CHLORIDE 0.9% 500 ML IVPB (17:18)
[2018-07-05] MEDS ORDERED: ACETAMINOPHEN 325 MG TAB PO (03:00)
[2018-07-05] MEDS ORDERED: VANCOMYCIN 1.5 GM in SOD CHLORIDE 0.9% 250 ML IVPB (04:30)
[2018-07-05] MEDS: PIPER-TAZO 3.375 GM IV (PMX) 100 ML IVPB ×3 (05:45→20:22)
[2018-07-05] MEDS: PANTOPRAZOLE (EC) 40 MG TAB PO (05:55)
[2018-07-05] MEDS: VANCOMYCIN 1.25 GM in SOD CHLORIDE 0.9% 250 ML IVPB (06:53)
[2018-07-05 09:50] LABS: ADD MAN DIFF? NO
[2018-07-05 09:52] LABS: BASOPHILS % 0.4 % (0.0-2.0); EOSINOPHILS # 0.2 10^3/ul (0.0-0.5); EOSINOPHILS % 2.2 % (0.0-7.0); HEMATOCRIT 33.7 % (42.0-52.0); HEMOGLOBIN 11.1 g/dl (14.0-18.0); LYMPHOCYTES # 1.9 10^3/ul (0.8-2.9); LYMPHOCYTES % 19.5 % (15.0-51.0); MEAN CORPUSCULAR HEMOGLOBIN 28.1 pg (29.0-33.0); MEAN CORPUSCULAR HGB CONC 32.9 g/dl (32.0-37.0); MEAN CORPUSCULAR VOLUME 85.3 fl (82.0-101.0); MEAN PLATELET VOLUME 9.2 fl (7.4-10.4); MONOCYTE # 0.9 10^3/ul (0.3-0.9); MONOCYTES % 9.5 % (0.0-11.0); NEUTROPHIL # 6.5 10^3/ul (1.6-7.5); NEUTROPHILS % 67.2 % (39.0-77.0); PLATELET COUNT 388 10^3/UL (140-415); RED BLOOD COUNT 3.95 10^6/ul (4.70-6.10); RED CELL DISTRIBUTION WIDTH 14.6 % (11.5-14.5)
[2018-07-05 09:52] LABS: WHITE BLOOD COUNT 9.7 10^3/ul (4.8-10.8)
[2018-07-06] MEDS: VANCOMYCIN 1.25 GM in SOD CHLORIDE 0.9% 250 ML IVPB (04:05)
[2018-07-06] MEDS: PIPER-TAZO 3.375 GM IV (PMX) 100 ML IVPB ×2 (06:16→13:26)
[2018-07-06] MEDS: PANTOPRAZOLE (EC) 40 MG TAB PO (06:16)
[2018-07-06 07:24] LABS: CREATININE 0.72 mg/dl (0.61-1.24)
[2018-07-06 07:24] LABS: BLOOD UREA NITROGEN 9 mg/dl (7-20)
== END 2018-07-06 16:03 | disposition home health service (06) | DRG 405 ==
LOC: REC 06:50 → 6WM 06-28 01:35 → MS1 14:37 → 5EC 06-30 23:04
PROC: 0F9G0ZZ Drainage of Pancreas, Open Approach (ICD-10-PCS; principal; 2018-06-26 09:00)
PROC: 0DB60ZZ Excision of Stomach, Open Approach (ICD-10-PCS; 2018-06-26 09:00)
PROC: 0FT40ZZ Resection of Gallbladder, Open Approach (ICD-10-PCS; 2018-06-26 09:00)
PROC: 0DP6X0Z Removal of Drainage Device from Stomach, External Approach (ICD-10-PCS; 2018-06-26 09:39)
DX: K86.3 Pseudocyst of pancreas (principal); A41.9 Sepsis, unspecified organism; K85.90 Acute pancreatitis without necrosis or infection, unspecified; J18.9 Pneumonia, unspecified organism; J96.01 Acute respiratory failure with hypoxia; T17.890A Other foreign object in other parts of respiratory tract causing asphyxiation, initial encounter; L03.113 Cellulitis of right upper limb; B95.62 Methicillin resistant Staphylococcus aureus infection as the cause of diseases classified elsewhere; E03.9 Hypothyroidism, unspecified; G62.9 Polyneuropathy, unspecified; G89.18 Other acute postprocedural pain; I80.8 Phlebitis and thrombophlebitis of other sites; I10 Essential (primary) hypertension; I25.10 Atherosclerotic heart disease of native coronary artery without angina pectoris; J44.9 Chronic obstructive pulmonary disease, unspecified; K80.20 Calculus of gallbladder without cholecystitis without obstruction; R53.81 Other malaise; Z85.89 Personal history of malignant neoplasm of other organs and systems; Z86.73 Personal history of transient ischemic attack (TIA), and cerebral infarction without residual deficits; Z95.828 Presence of other vascular implants and grafts; Z87.891 Personal history of nicotine dependence
CPT/HCPCS: 36600; 71045; 71275; 74018; 74176; 80048; 80053; 82565; 82803; 82962; 83605; 83690; 83735; 84100; 84520; 85025; 85610; 85730; 87040; 87070; 87075; 87086; 88304; 88305; 90686; 93005; 93971; 97161

== ENCOUNTER 2018-10-17 12:54 | Day surgery (SDC) | payer OTHER | END 2018-10-17 15:45 | disposition home or self-care (01) | LOC: GIL 12:54 → SDS 12:54 → GIL 15:45 | DX: R10.9 Unspecified abdominal pain (principal); Z53.8 Procedure and treatment not carried out for other reasons ==

== ENCOUNTER 2018-12-11 11:54 | Day surgery (SDC) | payer OTHER ==
[2018-12-11] MEDS ORDERED: METOCLOPRAMIDE 10 MG INJ (13:35)
[2018-12-11] MEDS ORDERED: MIDAZOLAM 1 MG/ML 2 ML INJ (13:35)
[2018-12-11] MEDS ORDERED: ROCURONIUM 50 MG INJ (13:35)
[2018-12-11] MEDS ORDERED: PROPOFOL 20 ML ×2 (13:35→14:47)
[2018-12-11] MEDS ORDERED: ONDANSETRON 4 MG INJ (13:35)
[2018-12-11] MEDS ORDERED: FENTAnyl 50 MCG/ML VIAL (13:35)
[2018-12-11] MEDS ORDERED: IOHEXOL 300MG/ML 30 ML BTL ×2 (13:39→13:41)
[2018-12-11] MEDS ORDERED: hydrALAzine 20 MG INJ IV (14:00)
[2018-12-11] MEDS ORDERED: INDOMETHACIN 50 MG SUPP PR (14:00)
[2018-12-11] MEDS ORDERED: HYDROmorphONE 1 MG/5 ML IV SYRINGE IV ×3 (14:00)
[2018-12-11] MEDS ORDERED: MEPERIDINE 25 MG INJ IV (14:00)
[2018-12-11] MEDS ORDERED: LABETALOL HCL 20MG INJ IV (14:00)
[2018-12-11] MEDS ORDERED: DIPHENHYDRAMINE 50 MG INJ IV (14:00)
[2018-12-11] MEDS ORDERED: FENTAnyl 50 MCG/ML VIAL IV ×3 (14:00)
[2018-12-11] MEDS ORDERED: ONDANSETRON 4 MG INJ IV (14:00)
[2018-12-11] MEDS ORDERED: EPHEDrine 25 MG/5 ML SYG ×2 (14:04→14:56)
[2018-12-11] MEDS ORDERED: PHENYLephrine (100 MCG/ML) 10ML SYG (14:56)
== END 2018-12-11 16:53 | disposition home or self-care (01) ==
LOC: GIL 11:54 → SDS 11:54 → GIL 16:53
DX: Z46.59 Encounter for fitting and adjustment of other gastrointestinal appliance and device (principal); I10 Essential (primary) hypertension; E03.9 Hypothyroidism, unspecified
CPT/HCPCS: 43262